=== PATIENT | male | born 1975 | race Caucasian/White ===

== ENCOUNTER 2022-01-05 18:30 | Inpatient (IN) | payer MEDICARE, SELFPAY ==
--- NOTE | ~2022-01-05 | CT_ITS ---
EXAMINATION: CTA chest PE protocol DATE: 01/05/2022 21:12 INDICATION: sara. R leg swelling TECHNIQUE: Computed tomography angiography (CTA) of the chest was performed with 100 mL Omnipaque-350 intravenous contrast timed to evaluate the pulmonary arteries. Coronal maximum intensity projection 3D-reconstructions were created by the technologist. The dose-length product (DLP) was 686.18 mGy-cm. Automated exposure control and iterative reconstruction technique were employed. COMPARISON: None. FINDINGS: Lung parenchyma and airways: Left basilar atelectasis/scar. Mild diffuse groundglass opacities with d ependent distribution. Pleura: Unremarkable. Thoracic inlet, axillae and chest wall: Unremarkable. Thoracic aorta: Mild arch calcification. Mediastinum: Mediastinal lymphadenopathy. Heart and pericardium: Cardiomegaly. Coronary artery calcifications: Moderate. Upper abdomen: No significant finding. Bones: No acute osseous finding. Pulmonary arteries: Study quality: Adequate. No pulmonary emboli detected. IMPRESSION: No CT evidence of acute pulmonary embolus. Mediastinal lymphadenopathy. Cardiomegaly. Pulmonary opaci ties may reflect mild pulmonary edema. Reviewed, dictated and finalized at location K. [employer] ENGINEERING MANAGER IMPRESSION: No CT evidence of acute pulmonary embolus. Mediastinal lymphadenopathy. Cardiom egaly. Pulmonary opacities may reflect mild pulmonary edema.
--- NOTE | ~2022-01-05 | CT_ITS ---
EXAMINATION: CT brain wo con DATE: 01/05/2022 20:26 INDICATION: Syncope/Fall . TECHNIQUE: Computed tomography (CT) of the head was performed without intravenous contrast. The mA wa s adjusted according to patient size. Iterative reconstruction technique was employed. The dose-lengt h product was 908.00 mGy-cm. COMPARISON: None FINDINGS: No acute intracranial hemorrhage or extra-axial fluid collection. No hydrocephalus, mass, or herniation. No acute ischemic infarct. Unremarkable dural venous sinus attenuation. No acute osseous abnormality. The aerated spaces are clear. Old left cerebellar infarct. Focal encephalomalacia in the right posterior frontal lobe. Mild chronic white matter change. Atherosclerotic intracranial calcifications. IMPRESSION: No acute intracranial process. Reviewed, dictated and finalized at location K. [employer]OR AND DELIVERY
[2022-01-05 18:35] VITALS: BP 132/98; PULSE 124; RESP 22; TEMP 36.7; O2SAT 100
--- NOTE | 2022-01-05 18:37 | ECG_ITS ---
Measurements Intervals [place] Rate: 123 P: 59 ND: 151 QRS: 13 QRSD: 106 T: 80 QT: 422 QTc: 604 Interpretive Statements SINUS TACHYCARDIA INCOMPLETE LEFT BUNDLE BRANCH BLOCK LOW QRS VOLTAGE IN LIMB LEADS BORDERLINE ST-T WAVE ABNORMALITY- DIFFUSE LEADS ABNORMAL ECG NO PREVIOUS ECG AVAILABLE FOR COMPARISON Electronically Signed On 01-06-2022 8:06:18 [employer] DU[employer]ER by Cecil Ashton D.O.
[2022-01-05 18:55] LABS: Basophils Absolute Auto 0.1 K/mm3 (0.0-0.1); Basophils Percent Auto 0.5 % (0.2-1.2); Eosinophils Absolute Auto 0.1 K/mm3 (0-0.3); Eosinophils Percent Auto 1.1 % (0-4.4); Hematocrit 44.1 % (42.0-52.0); Hemoglobin 12.9 g/dL (14.0-18.0); Immature Granulocyte Absolute 0.07 K/mm3 (0.00-0.031); Immature Granulocyte Percent A 0.7 % (0-0.5); Lymphocytes Absolute Auto 2.55 K/mm3 (0.9-3.2); Mean Corpuscular HGB Conc 29.3 g/dl (32-36); Mean Corpuscular Hemoglobin 23.3 pg (26-34); Mean Corpuscular Volume 79.6 fl (80-100); Mean Platelet Volume 9.7 fl (7.4-10.4); Monocytes Absolute Auto 1.2 K/mm3 (0.1-0.6); Monocytes Percent Auto 12.2 % (2.6-8.5); Neutrophils Absolute Auto 5.8 K/mm3 (1.3-6.7); Neutrophils Percent Auto 59.5 % (45.5-73.1); Nucleated Red Blood Cells Perc 0.4 % (0.0-0.2); Platelet Count Result 284 k/mm3 (150-375); Red Blood Count 5.54 M/mm3 (4.6-6.20); Red Cell Distribution Width 17.2 % (11.5-14.5); White Blood Count 9.8 K/mm3 (4.5-10.0)
[2022-01-05 19:10] LABS: Alanine Aminotransferase 42 U/L (6-50); Alkaline Phosphatase 159 U/L (38-126); Anion Gap 13 mmol/L (8-16); Aspartate Amino Transferase 49 U/L (17-59); Bilirubin,Total 0.8 mg/dL (0.2-1.3); Blood Urea Nitrogen 30 mg/dL (9-20); Calcium 8.5 mg/dL (8.4-10.2); Carbon Dioxide 25 mmol/L (22-30); Chloride 101 mmol/L (98-107); Estimated CRCL calculation 65 ml/min; Estimated Glomerular Filt Rate 50; Glucose 114 mg/dL (65-110); Potassium 4.7 mmol/L (3.4-5.0); Sodium 139 mmol/L (137-145)
[2022-01-05 19:22] LABS: Hypochromasia 1+ (NORMAL); Platelet Estimate Adequate (Adequate)
[2022-01-05 19:23] LABS: Anisocytosis 2+ (NORMAL); Schistocytes None Seen (NORMAL)
--- NOTE | 2022-01-05 19:58 | PC.NURSE ---
JACK cueva 80 lasix IV push
[2022-01-05] MEDS: FUROSEMIDE INJ 100 MG/10 ML VIAL 80 MG IV PUSH (19:59)
--- NOTE | 2022-01-05 20:03 | ED.GENADULT ---
HPI - General Adult General Chief complaint: Syncope Stated complaint: SOB, SYNCOPE Time Seen by Provider: 01/05/22 18:54 History of Present Illness HPI narrative: this is a 46-year-old male with history of severe CHF and polysubstance use disorder presenting ED with syncope. Per the patient's he has been having syncope more and more frequently. He had an episode today 130 where he was standing in his bedroom, syncopized and woke up on the floor. He believes he hit his head on the dresser. Patient is also complaining of chronic left-sided chest pain that he describes as stabbing, nonradiating, 5/10 in intensity constant. It comes and goes. Patient has had a many times over the last several months. There are no exacerbating or alleviating factors. Is not associated with vomiting or diaphoresis or exertion. Patient is supposed to be taking Lasix but only takes his medications intermittently. Additionally the patient used methamphetamines after the syncope to try to make himself feel better. It did not work. Related Data Allergies Allergy/AdvReac Type Severity Reaction Status Date / Time Penicillins Allergy Unknown Verified 01/05/22 19:52 Review of Systems Review of Systems: CONSTITUTIONAL: Denies night sweats. EYES: No eye pain ENT: Denies rhinorrhea CARDIOVASCULAR: Denies palpitations RESPIRATORY: Denies hemoptysis GASTROINTESTINAL: Denies hematemesis GENITOURINARY: Denies hematuria. SKIN: Denies rash MUSCULOSKELETAL: Denies myalgia. NEUROLOGIC: Denies weakness. PSYCHIATRIC: Denies delusions [facility] Social History Social History (Updated 01/05/22 @ 20:10 by Carlos Alberto MD) Social History: Patient has a history of alcoholism but quit approximately 1 year ago. Uses tobacco daily, uses methamphetamine frequently, denies cocaine use. Used IV drugs but has not used in the last 1 year Exam Narrative: APPEARANCE: 46-year-old male with facial tattoos sitting in bed, looks uncomfortable Head: atraumatic. EYES: EOMI, NOSE: Atraumatic NECK: Trachea midline RESPIRATORY: tachypneic , bibasilar rales CARDIOVASCULAR: tachycardic, patient has peripheral edema, left calf worse than right ABDOMINAL: distended, nontender no guarding or rebound MUSCULOSKELETAl: No obvious deformities NEURO: Alert. Moving 4/4 extremities SKIN:: Warm, dry. Normal color PSYCHIATRIC: Normal affect point of care cardiac ultrasound revealed an ejection fraction of 10-15% with global dilation of the heart. IVC is plethoric. pericardial effusion. Course Vital Signs Vital signs: Vital Signs Temperature 98.0 F 01/05/22 18:35 Pulse Rate 124 H 01/05/22 18:35 Respiratory Rate 22 H 01/05/22 18:35 Blood Pressure 132/98 H 01/05/22 18:35 Pulse Oximetry 100 01/05/22 18:35 Oxygen Delivery Room Air 01/05/22 18:35 Temperature 98.0 F 01/05/22 18:35 Pulse Rate 123 H 01/05/22 21:49 Respiratory Rate 31 H 01/05/22 21:36 Blood Pressure 151/112 H 01/05/22 21:36 Pulse Oximetry 100 01/05/22 21:36 Oxygen Delivery Room Air 01/05/22 18:35 Medical Decision Making MDM Narrative Medical decision making narrative: this is a chronically and healthy 46-year-old male with history of severe heart failure with reduced ejection fraction polysubstance use disorder presenting with syncope and shortness of breath. POC Cardiac ultrasound performed by myself showed an EF of 10-15%. patient is only intermittently consistent with his Lasix. Additionally he does smoke meth frequently which will worsen his HF. Patient is given 80 mg of Lasix. Additionally he has swelling of his left calf greater than right. This is more likely asymmetric peripheral edema from his heart failure but his CT PE has been ordered to evaluate. CT PE did not reveal pulmonary embolism. EKG interpretation: Rhythm [sinus], Rate [], [place] -[normal], [place] -[normal], QRS [narrow], QTC [normal], T waves -[negative for concerning inversions], ST Segme
[2022-01-05 20:20] LABS: INR 1.2; Partial Thromboplastin Time 26.6 SECONDS (22.3-36.8); Prothrombin Time 14.8 Seconds (11.1-14.7)
[2022-01-05 20:28] LABS: NT Pro B Type Natriuretic Pept 12300 pg/mL (5-100)
[2022-01-05 20:48] LABS: D Dimer 0.66 ug/mL (<0.48)
[2022-01-05 20:55] LABS: Troponin I 0.074 ng/mL (0.000-0.034)
[2022-01-05 21:36] VITALS: BP 151/112; PULSE 123; RESP 31; O2SAT 100
[2022-01-05 21:49] VITALS: PULSE 123
[2022-01-05 22:48] VITALS: BP 139/105; PULSE 121; RESP 18; O2SAT 97
[2022-01-05 23:12] VITALS: BP 132/98; PULSE 127
[2022-01-05 23:13] VITALS: BP 143/102
--- NOTE | 2022-01-05 23:14 | PM.IMHP ---
H&P: HPI History of Present Illness Date/Time: 01/05/22 23:14 Chief Complaint: shortness of breath Narrative: This is a 46-year-old male with past medical history significant for drug dependence patient used to be on IV drug user now he is smoking methamphetamine he also smokes cigarettes he has an ejection fraction of 10-15% as per last echocardiogram performed he was supposed to be wearing a life vest however he did not like it and sent it back. He presented today to the emergency room due to shortness of breath upon further questioning patient has PND, orthopnea, shortness of breath which is present at rest, bilateral lower extremity swelling, cough nonproductive of sputum denies chest pain, denies palpitations, denies nausea, vomiting, abdominal pain, diarrhea, patient has been having syncopal episodes he had a syncopal episode and caught himself heating the dresser. preliminary workup was significant for brain natriuretic peptide of 12,300, troponins x3 0.074/0.070/0.074. patient has been admitted for further evaluation management and treatment. Chest x-ray was reported as; IMPRESSION:? No acute intracranial process. CTA of the chest was reported as; IMPRESSION: No CT evidence of acute pulmonary embolus. Mediastinal lymphadenopathy. Cardiomegaly. Pulmonary opacities may reflect mild pulmonary edema. Review of Systems Review of Systems: RECURRENT SYNCOPAL EPISODE, shortness of breath, persistent cough, orthopnea, PND, bilateral lower extremity edema. Constitutional: Constitutional: Denies chills, Denies fever(s), Denies malaise, Denies poor appetite and Denies weakness Eyes: Eyes: Denies change in vision ENT: Denies dysphagia, Denies vertigo, Denies dizziness and Denies odynophagia Cardiovascular: Cardiovascular: Reports chest pain, Reports syncope, Reports leg edema, Reports lightheadedness, Reports dyspnea, Reports dyspnea on exertion, Reports orthopnea and Reports paroxysmal nocturnal dyspnea Respiratory: Respiratory: Reports cough Gastrointestinal: Gastrointestinal: Denies abdominal pain, Denies dyspepsia, Denies heartburn, Denies diarrhea, Denies nausea and Denies vomiting Genitourinary: Genitourinary: Denies dysuria Musculoskeletal: Musculoskeletal: Denies myalgias Integumentary/Breasts: Skin/Breast: Denies rash Neurologic: Denies vertigo, Denies dizziness, Denies focal weakness and Denies Sensory deficit (Neuro) Psychiatric: Psychiatric: Reports no additional psychiatric complaints and Reports as per HPI Endocrine: Endocrine: Denies cold intolerance, Denies flushing, Denies heat intolerance, Denies polyphagia, Denies polydipsia and Denies palpitations Hematologic/Lymphatic: Hematologic/Lymphatic: Reports no additional hematologic/lymphatic complaints and Reports as per HPI Allergic/Immunologic: Allergic/Immunologic: Reports no additional allergic/immunologic complaints and Reports as per HPI PMFSH Family History Family History (Updated 01/06/22 @ 01:17 by Alysha Meléndez RN) Father Heart disease Hypertension Cancer Mother Unknown family medical history Social History Social History (Updated 01/05/22 @ 20:10 by Carlos Alberto MD) Social History: Patient has a history of alcoholism but quit approximately 1 year ago. Uses tobacco daily, uses methamphetamine frequently, denies cocaine use. Used IV drugs but has not used in the last 1 year Smoking packs per day: 0.5 Smoking cigarettes per day: 10.0 Smoking status: Current every day smoker Alcohol intake: never Substance use type: marijuana and methamphetamine Has the Lack of Transportation Kept You From Medical Appointments or From Getting Medications?: Yes Within the Past 12 Months, Were You Worried Whether Your Food Would Run Out Before You Got Money to Buy More?: Often True What is Your Housing Situation Today?: I Have Housing Are You Worried That in the Next 2 Months, You May Not Have Your Own Housing to Live In?: No Do Yo
[2022-01-06] VITALS (20 sets, daily range): BP systolic 98–125; BP diastolic 66–104; PULSE 70–137; RESP 17–22; TEMP 36.3–36.7; O2SAT 97–100
--- NOTE | 2022-01-06 | ECHO_ITS ---
Patient Info Name: Enrique Nichols Age: 46 years : 1975 Gender: Male Ht: 69 in Wt: 231 lbs BSA: 2.30 m2 HR: 90 bpm BP: 122 / 95 mmHg Heart Rhythm: Sinus Rhythm Exam Date: 01/06/2022 1:02 PM Exam Location: [facility] Patient Status: Inpatient Admit Date: 01/05/2022 Staff Ordering Physician: Otis Mcdowell MD Bit Bender: Anjel Enriquez, JAMEEL, RT Attending Provider: Devin Bearden MD Referring Physician: July BOWEN; Exam Type: CA echo dop color flow w con Study Info Indications I50.9 - Heart failure, unspecified Complete two-dimensional, color flow and Doppler transthoracic echocardiogram is performed with contrast to opacify the left ventricle and to improve the deliniation of the left ventricle endocardial borders. Summary 1. Left ventricular chamber dimension is severely enlarged. 2. Left ventricular systolic function is severely reduced, estimated at <15%. 3. Right ventricular systolic function is reduced. 4. There is mild tricuspid valve regurgitation. 5. Dilated inferior vena cava with <50% collapse upon inspiration consistent with elevated right atrial pressure. Left Ventricle Left ventricular chamber dimension is severely enlarged. Left ventricular systolic function is severely reduced, estimated at <15%. There is mildly increased left ventricular wall thickness. The left ventricular diastolic function is indeterminate. Right Ventricle Right ventricular chamber dimension is normal. Right ventricular systolic function is reduced. Left Atria Left atrial chamber dimension is normal. Right Atria Right atrial chamber dimension is normal. Atrial Septum Intact interatrial septum visualized by color flow imaging. Aortic Valve The aortic valve is probable trileaflet. There is no aortic valve stenosis. There is no aortic valve regurgitation. Pulmonic Valve The pulmonic valve is not well visualized. Mitral Valve The mitral valve has normal leaflets. There is no mitral valve stenosis. There is trace mitral valve regurgitation. Tricuspid Valve The tricuspid valve leaflets are normal. There is no significant tricuspid valve stenosis. There is mild tricuspid valve regurgitation. Pericardium/Pleural There is no pericardial effusion. Inferior Vena Cava Dilated inferior vena cava with <50% collapse upon inspiration consistent with elevated right atrial pressure. Aorta The aortic root size at the sinus of Valsalva is normal. Left Ventricular Outflow Tract Name Value Normal LVOT 2D LVOT Diameter 2.12 cm LVOT Doppler LVOT Peak Gradient 1 mmHg LVOT Mean Gradient 1 mmHg LVOT VTI 7.27 cm LVOT VTI/AV VTI Ratio 0.72 LVOT Stroke Volume 25.74 ml LVOT CO 2.24 l/min LVOT CI 0.97 L/min/m2 Mitral Valve Name Value Normal
[2022-01-06 00:05] LABS: SARS-CoV-2 RNA PCR Negative
--- NOTE | 2022-01-06 00:39 | ADMGEN ---
This patient, Enrique Nichols, was admitted to IMU Room 206-01 at 0039. Patient/family oriented to hospital policies and general routines including ID bracelet, bed and alarms, visiting hours, pain management, procedures, bathroom and other care routines, personal items, smoking policy, room service/diet, and visiting hours. Information on how to activate the Rapid Response Team has been discussed. Patient/Family are encouraged to report perceived risks to care and to ask questions if they do not understand what they are told or what they should do.
--- NOTE | 2022-01-06 01:10 | PC.NURSE ---
GOING OVER PATIENTS ADMIT QUESTIONS. PATIENT INSTRUCTED ME THAT HE IS SUPPOSED TO TAKE A BUNCH OF PSYCH MEDS AND REFUSED TO TELL ME WHAT THEY ARE AND THEY ARE NOT ON EXTERNAL MEDICATION LIST. HE STATED THAT HE WOULD NOT TAKE THEM ANYWAY. PATIENT STATED THAT HE IS SUPPOSED TO WEAR A LIFEVEST AND REFUSED, THAT HE SENT IT BACK TO THE COMPANY. PATIENT WAS INSTRUCTED TO CALL FOR ASSIST AND NOT TO GET UP WITHOUT ASSISTANCE BECAUSE OF MULTIPLE SYNCOPAL EPISODE. PATIENT REFUSED AND STATED THAT HE KNOWS HOW TO TURN BED ALARM OFF. PATIENT WAS ALSO INSTRUCTED THAT HE WOULD BE NPO FOR POSSIBLE TEST. HE SAID WE CAN SHUVE THAT NPO CRAP UP OUR ASS.
[2022-01-06 02:47] LABS: Troponin I 0.074 ng/mL (0.000-0.034)
[2022-01-06] MEDS: ENOXAPARIN 120 MG/0.8 ML SYRINGE 105 MG SUB-Q (05:43)
[2022-01-06] MEDS: lisinopriL 5 MG TABLET PO (09:23)
[2022-01-06] MEDS: MAGNESIUM OXIDE 400 MG TABLET PO (09:23)
[2022-01-06] MEDS: carvediloL 6.25 MG TABLET PO (09:23)
[2022-01-06] MEDS: FUROSEMIDE INJ 40 MG/4 ML VIAL IV PUSH ×2 (09:24→17:22)
--- NOTE | 2022-01-06 10:17 | PM.CNCAR ---
Assessment and Plan Assessment and plan (1) Congestive heart failure with left ventricular systolic dysfunction (LVSD): Code(s): I50.20 - Unspecified systolic (congestive) heart failure Status: Acute Assessment and Plan: Will resume standard CHF regimen. Will start at carvedilol 12.5 mg p.o. b.i.d. as well as lisinopril 5 mg daily. Diurese with 40 mg of IV furosemide q.12. 2D echocardiogram with Doppler be ordered and reviewed. Intake and output, daily weights, low-salt diet. Will discontinue full dose enoxaparin. SubQ enoxaparin 40 mg daily for DVT prophylaxis is recommended. (2) Syncope: Code(s): R55 - Syncope and collapse Status: Acute Assessment and Plan: Possibly arrhythmogenic details are not well known or described. Will keep on telemetry. (3) Polysubstance use disorder: Code(s): F19.90 - Other psychoactive substance use, unspecified, uncomplicated Status: Acute Assessment and Plan: Substance abuse counseling is performed. Continue to avoid alcohol. He has to stop methamphetamine use (4) Elevated troponin: Code(s): R77.8 - Other specified abnormalities of plasma proteins Status: Acute Assessment and Plan: These are not related to ACS History of Present Illness History of Present Illness Consult date/time: 01/06/22 10:17 Requesting physician: Betty Mcrae MD Consult reason: congestive heart failure Reason For Visit: HFrEF Narrative: Date of service 01/06/2022 Reason consultation: CHF, syncope Requesting provider: Dr. Mcrae History: Patient is a 46-year-old male has a history of significant substance abuse who still uses methamphetamine. Also has a history of alcoholism and a poor ejection fraction with an EF 10-15%. Was wearing a LifeVest but did not like it and he has sent it back and no longer is using it. He [place] workup [place] of [place]. Since being back in this area he has been seen at [facility]. He is somnolent throughout part of the interview process and falls asleep throughout the interview. He currently denies any chest pain. Came to the hospital with worsening shortness of breath. He has paroxysmal nocturnal dyspnea, orthopnea and shortness breath even at rest. He has also been having worsening lower extremity swelling and a cough. Denies any chest pain, palpitations. He also thinks that he may be passing out but he is uncertain and cannot further describe his episodes. Review of Systems Review of Systems: All systems reviewed & are unremarkable except as noted in HPI and below Constitutional: Constitutional: Denies body ache(s) Eyes: Eyes: Denies blurry vision ENT: Reports Normal hearing present Cardiovascular: Cardiovascular: Denies chest pain and Reports leg edema Respiratory: Respiratory: Reports cough and Reports dyspnea Gastrointestinal: Gastrointestinal: Denies abdominal pain Genitourinary: Genitourinary: Denies hematuria Musculoskeletal: Musculoskeletal: Denies back pain Integumentary/Breasts: Skin/Breast: Denies breast pain Neurologic: Denies Abnormal speech present Psychiatric: Psychiatric: Denies anxiety Endocrine: Endocrine: Denies excessive sweating Hematologic/Lymphatic: Hematologic/Lymphatic: Denies easy bleeding Allergic/Immunologic: Allergic/Immunologic: Denies GI upset with certain foods PMFSH Past Medical History Medical History (Updated 01/06/22 @ 10:22 by Otis Mcdowell MD) Bipolar 1 disorder Congestive heart failure with left ventricular systolic dysfunction (LVSD) Polysubstance use disorder Family History Family History (Updated 01/06/22 @ 01:17 by Alysha Meléndez RN) Father Heart disease Hypertension Cancer Mother Unknown family medical history Social History Social History (Updated 01/05/22 @ 20:10 by Carlos Alberto MD) Social History: Patient has a history of alcoholism but quit approximately 1 year ago. Uses tobac
--- NOTE | 2022-01-06 11:19 | PM.IMPN ---
Progress Note: A&P Assessment and Plan (1) Congestive heart failure with left ventricular systolic dysfunction (LVSD): Code(s): I50.20 - Unspecified systolic (congestive) heart failure Status: Acute Assessment and Plan: patient has ejection fraction of 15%. Previously he has declined LifeVest. I counseled the patient again extensively on wearing a LifeVest. Cardiology has been consulted. Patient to continue Lasix 40 mg IV b.i.d.. Monitor intake and output. Continue goal-directed medical therapy with lisinopril and carvedilol. Subjective Date/time seen: 01/06/22 11:19 no chest pain, shortness are breath Review of Systems Review of Systems: All systems reviewed & are unremarkable except as noted in HPI and below Constitutional: Constitutional: Denies body ache(s) Eyes: Eyes: Denies blurry vision ENT: Reports Normal hearing present Cardiovascular: Cardiovascular: Denies chest pain and Reports leg edema Respiratory: Respiratory: Reports cough and Reports dyspnea Gastrointestinal: Gastrointestinal: Denies abdominal pain Genitourinary: Genitourinary: Denies hematuria Musculoskeletal: Musculoskeletal: Denies back pain Integumentary/Breasts: Skin/Breast: Denies breast pain Neurologic: Denies Abnormal speech present Psychiatric: Psychiatric: Denies anxiety Endocrine: Endocrine: Denies excessive sweating Hematologic/Lymphatic: Hematologic/Lymphatic: Denies easy bleeding Allergic/Immunologic: Allergic/Immunologic: Denies GI upset with certain foods Exam Narrative: Drowsy but arousable. Appears older than stated age Const: General: comfortable and no acute distress HENMT: Face/Nose/Sinus: Normal nares present Mouth: Yes moist mucous membranes Eyes: Sclera: sclerae normal Neck: Neck: supple Carotids: no bruits Chest: Other: No chest wall pain to palpation Resp: Auscultation: clear to auscultation bilaterally and diminished lung sounds Cardio: Rate: tachycardic Rhythm: regular rhythm GI: GI Palp: Yes Soft to palpation Auscultation: normal bowel sounds Skin: General skin exam: normal color Other: Tattoos noted Neuro: Speech: normal speech Motor exam (neuro): 5/5 motor strength present throughout Extrem: General: edema Psych: Mental Status: mental status grossly normal Other: Somnolent Objective Data Vital Signs Vital Signs: Vital Signs - 24 hr 01/05/22 18:35 01/05/22 21:49 01/05/22 21:36 Temperature 98.0 F Pulse Rate 124 H 123 H 123 H Respiratory Rate 22 H 31 H Blood Pressure 132/98 H 151/112 H Pulse Oximetry 100 100 Oxygen Delivery Room Air Fraction of Inspired Oxygen 01/05/22 22:48 01/05/22 23:12 01/05/22 23:13 Temperature Pulse Rate 121 H 127 H Respiratory Rate 18 Blood Pressure 139/105 H 132/98 H 143/102 H Pulse Oximetry 97 Oxygen Delivery Fraction of Inspired Oxygen 01/06/22 00:43 01/06/22 01:16 01/06/22 02:00 Temperature 98.0 F Pulse Rate 124 H 137 H 109 H Respiratory Rate 22 H Blood Pressure 125/104 H Pulse Oximetry 99 Oxygen Delivery Fraction of Inspired Oxygen 01/06/22 01:45 01/06/22 01:45 01/06/22 04:00 Temperature Pulse Rate 114 H 114 H 112 H Respiratory Rate 21 H 21 H Blood Pressure Pulse Oximetry 99 99 Oxygen Delivery BiPAP BiPAP Fraction of Inspired Oxygen 40 01/06/22 04:00 01/06/22 04:00 01/06/22 05:48 Temperature 98.0 F Pulse Rate 109 H 116 H 109 H Respiratory Rate 21 H 20 Blood Pressure 125/84 Pulse Oximetry 99 99 Oxygen Delivery BiPAP Fraction of Inspired Oxygen 40 01/06/22 08:00 01/06/22 09:23 01/06/22 08:00 Temperature 97.7 F Pulse Rate 112 H 110 H 115 H Respiratory Rate 18 Blood Pressure 122/95 H Pulse Oximetry 97 Oxygen Delivery Fraction of Inspired Oxygen 01/06/22 10:00 01/06/22 00:47 Temperature Pulse Rate 110 H 124 H Respiratory Rate 22 H Blood Pressure 125/104 H Pulse Oximetry 99 Oxygen Del
[2022-01-06] MEDS: PERFLUTREN LIPID MICROSPHERES 1.5 ML VIAL DILUTED TO 10 ML TOTAL VOLUME IV PUSH (13:10)
--- NOTE | 2022-01-06 13:11 | IVDEFINITY ---
Prior to administration of IV Definity the patient was educated on the risks and benefits of the imaging enhancing agent including potential adverse side effects. The patient verbalized understanding. Allergies were verified. No exclusion criteria were identified and at least one of the following inclusion criteria were met: 1) physician request, 2) patient technically difficult to image (per the [place] [employer] guidelines of two or more segments not discernable within the apical view), or 3) questionable left ventricular function. ?
[2022-01-06] MEDS: carvediloL 12.5 MG TABLET PO (20:23)
--- NOTE | 2022-01-06 23:33 | PC.NURSE ---
PATIENT IS BEING VERY AGGRESSIVE AND DEMANDING THAT HE CAN TAKE A SHOWER. PATIENT STATED THAT HE WILL PULL OUT HIS IV AND TAKE A SHOWER WHETHER WE LIKE IT OR NOT.
[2022-01-07] VITALS (17 sets, daily range): BP systolic 75–116; BP diastolic 52–93; PULSE 74–105; RESP 17–24; TEMP 36.2–37.2; O2SAT 92–100
[2022-01-07] MEDS: ENOXAPARIN 40 MG/0.4 ML SYRINGE SUB-Q (08:52)
[2022-01-07] MEDS: FUROSEMIDE INJ 40 MG/4 ML VIAL IV PUSH (08:52)
[2022-01-07] MEDS: MAGNESIUM OXIDE 400 MG TABLET PO (08:52)
[2022-01-07] MEDS: lisinopriL 5 MG TABLET PO (08:52)
[2022-01-07] MEDS: carvediloL 12.5 MG TABLET PO ×2 (09:32→20:39)
--- NOTE | 2022-01-07 11:22 | PM.PNCARD ---
Progress Note: A&P Assessment and Plan (1) Congestive heart failure with left ventricular systolic dysfunction (LVSD): Code(s): I50.20 - Unspecified systolic (congestive) heart failure Status: Acute Assessment and Plan: Will resume standard CHF regimen. Continue carvedilol and lisinopril. Reduce his diuretics of furosemide 40 mg IV daily and transition oral furosemide tomorrow., low-salt diet. (2) Syncope: Code(s): R55 - Syncope and collapse Status: Acute Assessment and Plan: Possibly arrhythmogenic details are not well known or described. Will keep on telemetry. (3) Polysubstance use disorder: Code(s): F19.90 - Other psychoactive substance use, unspecified, uncomplicated Status: Acute Assessment and Plan: Substance abuse counseling is performed. Continue to avoid alcohol. He has to stop methamphetamine use (4) Elevated troponin: Code(s): R77.8 - Other specified abnormalities of plasma proteins Status: Acute Assessment and Plan: These are not related to ACS Subjective Date/time seen: 01/07/22 11:22 Interval history: 46-year-old admitted for CHF exacerbation. Date of service 09/06/2021: Much more awake alert today. He has no chest pains. Shortness breath is better. Review of Systems Review of Systems: All systems reviewed & are unremarkable except as noted in HPI and below Constitutional: Constitutional: Denies body ache(s) and Denies excessive sweating Eyes: Eyes: Denies blurry vision ENT: Reports Normal hearing present Cardiovascular: Cardiovascular: Denies chest pain, Reports leg edema and Reports dyspnea Respiratory: Respiratory: Reports cough and Reports dyspnea Gastrointestinal: Gastrointestinal: Denies abdominal pain Genitourinary: Genitourinary: Denies hematuria Musculoskeletal: Musculoskeletal: Denies back pain Integumentary/Breasts: Skin/Breast: Denies breast pain Neurologic: Reports Normal hearing present and Denies Abnormal speech present Psychiatric: Psychiatric: Denies anxiety Endocrine: Endocrine: Denies excessive sweating Hematologic/Lymphatic: Hematologic/Lymphatic: Denies easy bleeding Allergic/Immunologic: Allergic/Immunologic: Denies GI upset with certain foods Exam Narrative: Drowsy but arousable. Appears older than stated age Const: General: comfortable and no acute distress HENMT: Face/Nose/Sinus: Normal nares present Mouth: Yes moist mucous membranes Eyes: Sclera: sclerae normal Neck: Neck: supple Carotids: no bruits Chest: Other: No chest wall pain to palpation Resp: Auscultation: clear to auscultation bilaterally and diminished lung sounds Cardio: Rate: tachycardic Rhythm: regular rhythm GI: Auscultation: normal bowel sounds Skin: General skin exam: normal color Other: Tattoos noted Neuro: Cranial nerves: Yes Normal hearing present Speech: normal speech and No Abnormal speech present Motor exam (neuro): 5/5 motor strength present throughout Extrem: General: edema Psych: Mental Status: mental status grossly normal Objective Data Vital Signs Vital Signs: Vital Signs - 24 hr 01/06/22 12:00 01/06/22 12:00 01/06/22 14:00 Temperature 36.3 C L Pulse Rate 89 98 85 Respiratory Rate 20 Blood Pressure 98/66 L Pulse Oximetry 99 Oxygen Delivery Fraction of Inspired Oxygen 01/06/22 15:51 01/06/22 16:00 01/06/22 12:00 Temperature 36.5 C Pulse Rate 76 86 98 Respiratory Rate 21 H 17 20 Blood Pressure 106/80 Pulse Oximetry 100 100 100 Oxygen Delivery BiPAP BiPAP Fraction of Inspired Oxygen 40 01/06/22 16:00 01/06/22 17:57 01/06/22 19:16 Temperature Pulse Rate 95 88 80 Respiratory Rate 20 Blood Pressure Pulse Oximetry 100 Oxygen Delivery BiPAP Fraction of Inspired Oxygen 01/06/22 20:23 01/06/22 20:00 01/06/22 20:00 Temperature Pulse Rate 88 88 88 Respiratory Rate 20 Blood Pressure Pulse Oxime
--- NOTE | 2022-01-07 16:20 | PM.IMPN ---
Progress Note: A&P Assessment and Plan (1) Congestive heart failure with left ventricular systolic dysfunction (LVSD): Code(s): I50.20 - Unspecified systolic (congestive) heart failure Status: Acute Assessment and Plan: Patient has ejection fraction of 15%. Previously he has declined LifeVest. Pt to continue lasix IV once daily NOAM inhibitors and Coreg. Continue with gentle diuresis watching BP monitor BMp daily plan dc in 1-2 days time Pt strongly advised to quit meth Plan Bipolar disorder and polysubstance abuse long history pt states he wants to be clean Subjective Date/time seen: 01/07/22 16:20 46-year-old male with past medical history significant for drug dependence patient used to be on IV drug user now he is smoking methamphetamine he also smokes cigarettes he has an ejection fraction of 10-15% as per last echocardiogram performed he was supposed to be wearing a life vest however he did not like it and sent it back. Pt has history of bipolar and polysubstance abuse. Pt seen by cardiology pt medications have been adjusted unfortunately pt has been running low BP today due to medications we will continue to observe. Exam Const: General: cooperative, comfortable, no acute distress, well developed, alert, awake, acute distress mild and average body habitus Nutritional Appearance: average body habitus Orientation/consciousness: patient oriented x3 Resp: Effort & Inspection: normal respiratory effort and able to speak in complete sentences Auscultation: clear to auscultation bilaterally and diminished lung sounds Cardio: Jugular venous distension: no JVD Rate: regular rate and tachycardic Rhythm: regular rhythm Heart sounds: S1 normal heart sound present and S2 normal heart sound present GI: Inspection: normal to inspection Auscultation: normal bowel sounds Extrem: General: edema bilateral ( 2+) Psych: Mental Status: mental status grossly normal Other: Somnolent Objective Data Vital Signs Vital Signs: Vital Signs - 24 hr 01/06/22 17:57 01/06/22 19:16 01/06/22 20:23 Temperature Pulse Rate 88 80 88 Respiratory Rate 20 Blood Pressure Pulse Oximetry 100 Oxygen Delivery BiPAP Fraction of Inspired Oxygen 01/06/22 20:00 01/06/22 20:00 01/06/22 20:00 Temperature 36.4 C Pulse Rate 88 88 80 Respiratory Rate 20 20 Blood Pressure 106/85 Pulse Oximetry 100 100 Oxygen Delivery BiPAP Fraction of Inspired Oxygen 40 11/08/22 22:00 01/07/22 00:00 01/06/22 23:15 Temperature 37.1 C Pulse Rate 82 85 70 Respiratory Rate 22 H 20 Blood Pressure 93/54 L Pulse Oximetry 94 97 Oxygen Delivery BiPAP Fraction of Inspired Oxygen 01/07/22 02:00 01/07/22 02:26 01/07/22 02:34 Temperature Pulse Rate 90 92 Respiratory Rate 17 Blood Pressure Pulse Oximetry 100 96 Oxygen Delivery BiPAP Fraction of Inspired Oxygen 01/07/22 04:00 01/07/22 04:00 01/07/22 05:43 Temperature 37.2 C Pulse Rate 84 87 Respiratory Rate 17 20 Blood Pressure 116/93 H Pulse Oximetry 100 94 Oxygen Delivery BiPAP Fraction of Inspired Oxygen 01/07/22 06:00 01/07/22 08:00 01/07/22 08:00 Temperature 36.2 C L Pulse Rate 85 86 Respiratory Rate 24 H Blood Pressure 101/58 L Pulse Oximetry 99 Oxygen Delivery Room Air Fraction of Inspired Oxygen 01/07/22 08:00 01/07/22 10:00 01/07/22 12:00 Temperature 36.7 C Pulse Rate 96 86 84 Respiratory Rate 20 Blood Pressure 75/52 L Pulse Oximetry 92 Oxygen Delivery Fraction of Inspired Oxygen 01/07/22 12:00 01/07/22 14:00 01/07/22 16:00 Temperature 36.7 C Pulse Rate 85 86 86 Respiratory Rate 20 Blood Pressure 85/60 L Pulse Oximetry 98 Oxygen Delivery Fraction of Inspired Oxygen Intake/Output Intake/Output: Intake & Output 01/04/22 01/05/22 01/06/22 01/07/22 23:59 23:59 23:59 23:59 Intake Total 1060 1080 Output Total 2300 2800 Jamilah
[2022-01-07] MEDS: ACETAMINOPHEN 325 MG TABLET 650 MG PO (18:11)
--- NOTE | 2022-01-07 23:36 | PC.NURSE ---
PATIENT WAS CHANGED TO CPAP INSTEAD OF BIPAP. PATIENT IS CALLING OUT BECAUSE HE DOESN'T LIKE THE MASK, HE REFUSES TO WEAR OXYGEN. TRIED THE NASAL MASK AND HE IS REFUSING THAT. HE STATED THAT HE WILL ONLY WEAR THE REGULAR MASK IF HE GETS SOMETHING FOR HIS ANXIETY.
--- NOTE | 2022-01-08 00:33 | PC.NURSE ---
patient removes telemetry to take shower. did not let us wrap up iv tonight.
--- NOTE | 2022-01-08 00:46 | PC.NURSE ---
PATIENT CALLED OUT FOR STAFF TO COME IN AND EXPLAIN THE DISCHARGE PREFERENCE THAT WAS WRITTEN ON PATIENTS BOARD. PATIENT WAS IRATE AND SCREAMING BECAUSE HE WAS SAYING THAT WE WERE KICKING HIM OUT BECAUSE IT SAID DISCHARGE TO HOME ON [place] [address]. I HAD TO CALM PATIENT DOWN AND TRY TO EXPLAIN TO HIM THAT THAT WAS JUST WHERE HE WILL BE GOING WHEN HE IS READY TO LEAVE.
[2022-01-08 02:00] VITALS: PULSE 103
[2022-01-08] MEDS: OLANZapine 2.5 MG TABLET PO (02:55)
--- NOTE | 2022-01-08 03:43 | PC.NURSE ---
PATIENT WAS SCREAMING AND YELLING BECAUSE HE DIDN'T LIKE THE CPAP. HE REFUSED TO WEAR THE NASAL CANULA, HE STATED THAT IT IRRITATED HIM. CUT THE PRONGS OFF AND HE STILL THREW IT. TRIED CHANGING SETTING ON CPAP. TRY TO BLEED IN O2, HE WASN'T HAPPY WITH ANYTHING THAT WE DID. HE WAS SCREAMING AT ME THAT I DON'T UNDERSTAND WHAT'S WRONG WITH HIM. HE KEPT SAYING THAT ONLY 15% OF HIS HEART IS WORKING AND THAT I WASN'T MAKING IT BETTER. HE KEPT ASKING ME WHAT I WAS GOING TO DO ABOUT HIS HEART PROBLEM. EVERY TIME I MENTIONED HOME IN THE CONVERSATION HE WOULD FREAK OUT, BECOME MORE IRATE. HE WOULDN'T LISTEN TO ANYTHING I HAD TO SAY AND KEPT HAVING ME EXPLAIN THE SAME THING OVER AND OVER, HE WAS GETTING MAD AT ME BECAUSE HE COULDN'T UNDERSTAND. SO I LEFT THE ROOM AND GOT THE CONTROL ANALYST TALK TO HIM. HE WANTED HIS PSYCH MEDS. THEY WERE NOT IN THE EXTERNAL HISTORY, HE COULDN'T REMEMBER WHAT ALL HE TOOK, THE DOSE, HOW OFTEN, NOTHING. SO TALKED TO DR ESPINOZA TO GIVE HIM A MEDICATION TO HELP RELAX HIM. WILL CONTINUE TO MONITOR.
[2022-01-08 04:00] VITALS: BP 110/82; PULSE 86; PULSE 91; RESP 18; TEMP 36.1; O2SAT 100
--- NOTE | 2022-01-08 04:03 | PC.NURSE ---
PATIENT IS EXTREMELY RESTLESS, LAYING DOWN, SITTING UP, ROLLING AROUND IN BED, STANDING AND PACING, VERY ANXIOUS. DR ESPINOZA IS AWARE, MEDS ORDERED.
[2022-01-08] MEDS: LORazepam INJ (*CRX) 2 MG/ML VIAL 0.5 MG IV PUSH (04:09)
--- NOTE | 2022-01-08 04:45 | PCRCNOTE ---
I applied autoCPAP onto patient multiple times throughoutthe night. Patient c/o he is uncomfortable using CPAP machine because it feels different than the bipap machine he was on earlier. Patient education on the difference in between the two therapies. Patient also tried multiple suggestion to help make using the CPAP easier. Patient refused and placed on NC.
[2022-01-08 06:00] VITALS: PULSE 104
--- NOTE | 2022-01-08 06:45 | PC.NURSE ---
PATIENT IS SLEEPY, WONT LAY DOWN, SITS ON SIDE OF BED AND ROCKS BACK AND FORTH. PATIENT TOLD MULTIPLE TIME TO LAY DOWN BEFORE HE FALLS OUT OF BED. PATIENT WILL LAY DOWN FOR A COUPLE MIN. AND GET BACK UP. PATIENT IS NOT IRATE HE WAS EARLIER, JUST NON-COMPLIANT.
[2022-01-08 07:14] LABS: Anion Gap 10 mmol/L (8-16); Blood Urea Nitrogen 43 mg/dL (9-20); Calcium 8.3 mg/dL (8.4-10.2); Carbon Dioxide 25 mmol/L (22-30); Chloride 100 mmol/L (98-107); Estimated CRCL calculation 65 ml/min; Estimated Glomerular Filt Rate 50; Glucose 104 mg/dL (65-110); Magnesium 2.2 mg/dL (1.6-2.3); Potassium 4.3 mmol/L (3.4-5.0); Sodium 135 mmol/L (137-145)
[2022-01-08 08:00] VITALS: BP 126/85; PULSE 106; PULSE 94; RESP 20; TEMP 36.4; O2SAT 100
[2022-01-08] MEDS: ENOXAPARIN 40 MG/0.4 ML SYRINGE SUB-Q (08:24)
[2022-01-08] MEDS: carvediloL 12.5 MG TABLET PO (08:24)
[2022-01-08] MEDS: MAGNESIUM OXIDE 400 MG TABLET PO (08:24)
[2022-01-08] MEDS: lisinopriL 5 MG TABLET PO (08:25)
[2022-01-08] MEDS: FUROSEMIDE INJ 40 MG/4 ML VIAL IV PUSH (08:25)
--- NOTE | 2022-01-08 09:24 | PM.PNCARD ---
Progress Note: A&P Assessment and Plan (1) Congestive heart failure with left ventricular systolic dysfunction (LVSD): Code(s): I50.20 - Unspecified systolic (congestive) heart failure Status: Acute Assessment and Plan: Continue carvedilol and lisinopril. Continue furosemide 40 mg IV daily and possibly transition oral furosemide tomorrow., low-salt diet. (2) Syncope: Code(s): R55 - Syncope and collapse Status: Acute Assessment and Plan: Possibly arrhythmogenic details are not well known or described. Will keep on telemetry. (3) Polysubstance use disorder: Code(s): F19.90 - Other psychoactive substance use, unspecified, uncomplicated Status: Acute Assessment and Plan: Substance abuse counseling is performed. Continue to avoid alcohol. He has to stop methamphetamine use (4) Elevated troponin: Code(s): R77.8 - Other specified abnormalities of plasma proteins Status: Acute Assessment and Plan: These are not related to ACS Subjective Date/time seen: 01/08/22 09:24 Interval history: 46-year-old admitted for CHF exacerbation. Date of service 01/08/2022: A bit more short of breath today than yesterday. No chest pain. Review of Systems Review of Systems: All systems reviewed & are unremarkable except as noted in HPI and below Constitutional: Constitutional: Denies body ache(s) and Denies excessive sweating Eyes: Eyes: Denies blurry vision ENT: Reports Normal hearing present Cardiovascular: Cardiovascular: Denies chest pain, Reports leg edema and Reports dyspnea Respiratory: Respiratory: Reports cough and Reports dyspnea Gastrointestinal: Gastrointestinal: Denies abdominal pain Genitourinary: Genitourinary: Denies hematuria Musculoskeletal: Musculoskeletal: Denies back pain Integumentary/Breasts: Skin/Breast: Denies breast pain Neurologic: Reports Normal hearing present and Denies Abnormal speech present Psychiatric: Psychiatric: Denies anxiety Endocrine: Endocrine: Denies excessive sweating Hematologic/Lymphatic: Hematologic/Lymphatic: Denies easy bleeding Allergic/Immunologic: Allergic/Immunologic: Denies GI upset with certain foods Exam Narrative: Drowsy but arousable. Appears older than stated age Const: General: comfortable and no acute distress HENMT: Face/Nose/Sinus: Normal nares present Mouth: Yes moist mucous membranes Eyes: Sclera: sclerae normal Neck: Neck: supple Carotids: no bruits Chest: Other: No chest wall pain to palpation Resp: Auscultation: clear to auscultation bilaterally and diminished lung sounds Cardio: Rate: tachycardic Rhythm: regular rhythm GI: Auscultation: normal bowel sounds Skin: General skin exam: normal color Other: Tattoos noted Neuro: Cranial nerves: Yes Normal hearing present Speech: normal speech and No Abnormal speech present Motor exam (neuro): 5/5 motor strength present throughout Extrem: General: edema Psych: Mental Status: mental status grossly normal Other: Somnolent Objective Data Vital Signs Vital Signs: Vital Signs - 24 hr 01/07/22 10:00 01/07/22 12:00 01/07/22 12:00 Temperature 36.7 C Pulse Rate 86 84 85 Respiratory Rate 20 Blood Pressure 75/52 L Pulse Oximetry 92 Oxygen Delivery Fraction of Inspired Oxygen 01/07/22 14:00 01/07/22 16:00 01/07/22 16:00 Temperature 36.7 C Pulse Rate 86 86 89 Respiratory Rate 20 Blood Pressure 85/60 L Pulse Oximetry 98 Oxygen Delivery Fraction of Inspired Oxygen 01/07/22 18:00 01/07/22 20:00 01/07/22 20:39 Temperature 36.3 C L Pulse Rate 95 89 74 Respiratory Rate 22 H Blood Pressure 100/62 Pulse Oximetry 96 Oxygen Delivery Fraction of Inspired Oxygen 01/07/22 20:00 01/07/22 20:00 01/07/22 23:15 Temperature Pulse Rate 74 93 Respiratory Rate 22 H Blood Pressure Pulse Oximetry 96 Oxygen Delivery Room Air Autopap Fraction
--- NOTE | 2022-01-08 11:06 | PC.NURSE ---
This patient, Enrique Nichols, was received from IMU on 01/08/22 at 1010. Patient/family oriented to unit policies and routines
--- NOTE | 2022-01-08 11:06 | PC.NURSE ---
Pt. setting off bed alarm observed pt turing off bed alarm, pt yelling at staff not to turn back state i will just turn in back off when you leave . Pt is aware how to reset alarm on wall also.
--- NOTE | 2022-01-08 11:22 | PC.NURSE ---
Pt, took off telemetry alarm and refusing staff to place alarm back on
--- NOTE | 2022-01-08 11:52 | PM.IMPN ---
Progress Note: A&P Assessment and Plan (1) Congestive heart failure with left ventricular systolic dysfunction (LVSD): Code(s): I50.20 - Unspecified systolic (congestive) heart failure Status: Acute Assessment and Plan: Continue carvedilol and lisinopril. Continue furosemide 40 mg IV daily and possibly transition oral furosemide tomorrow., low-salt diet. (2) Syncope: Code(s): R55 - Syncope and collapse Status: Acute Assessment and Plan: Will keep on telemetry. (3) Polysubstance use disorder: Code(s): F19.90 - Other psychoactive substance use, unspecified, uncomplicated Status: Acute Assessment and Plan: Substance abuse counseling is performed. Continue to avoid alcohol. He has to stop methamphetamine use (4) Elevated troponin: Code(s): R77.8 - Other specified abnormalities of plasma proteins Status: Acute Assessment and Plan: likely demand ischemia Plan possible discharge tomorrow Subjective Date/time seen: 01/08/22 11:52 stable. On room air. No shortness of breath Review of Systems Review of Systems: All systems reviewed & are unremarkable except as noted in HPI and below Constitutional: Constitutional: Denies body ache(s) and Denies excessive sweating Eyes: Eyes: Denies blurry vision ENT: Reports Normal hearing present Cardiovascular: Cardiovascular: Denies chest pain, Reports leg edema and Reports dyspnea Respiratory: Respiratory: Reports cough and Reports dyspnea Gastrointestinal: Gastrointestinal: Denies abdominal pain Genitourinary: Genitourinary: Denies hematuria Musculoskeletal: Musculoskeletal: Denies back pain Integumentary/Breasts: Skin/Breast: Denies breast pain Neurologic: Reports Normal hearing present and Denies Abnormal speech present Psychiatric: Psychiatric: Denies anxiety Endocrine: Endocrine: Denies excessive sweating Hematologic/Lymphatic: Hematologic/Lymphatic: Denies easy bleeding Allergic/Immunologic: Allergic/Immunologic: Denies GI upset with certain foods Exam Const: General: comfortable and no acute distress HENMT: Face/Nose/Sinus: Normal nares present Mouth: Yes moist mucous membranes Eyes: Sclera: sclerae normal Neck: Neck: supple Carotids: no bruits Chest: Other: No chest wall pain to palpation Resp: Auscultation: clear to auscultation bilaterally and diminished lung sounds Cardio: Rate: tachycardic Rhythm: regular rhythm GI: Auscultation: normal bowel sounds Skin: General skin exam: normal color Other: Tattoos noted Neuro: Cranial nerves: Yes Normal hearing present Speech: normal speech and No Abnormal speech present Motor exam (neuro): 5/5 motor strength present throughout Extrem: General: edema Psych: Mental Status: mental status grossly normal Other: Somnolent Objective Data Vital Signs Vital Signs: Vital Signs - 24 hr 01/07/22 12:00 01/07/22 12:00 01/07/22 14:00 Temperature 98.0 F Pulse Rate 84 85 86 Respiratory Rate 20 Blood Pressure 75/52 L Pulse Oximetry 92 Oxygen Delivery Fraction of Inspired Oxygen 01/07/22 16:00 01/07/22 16:00 01/07/22 18:00 Temperature 98.1 F Pulse Rate 86 89 95 Respiratory Rate 20 Blood Pressure 85/60 L Pulse Oximetry 98 Oxygen Delivery Fraction of Inspired Oxygen 01/07/22 20:00 01/07/22 20:39 01/07/22 20:00 Temperature 97.3 F L Pulse Rate 89 74 74 Respiratory Rate 22 H 22 H Blood Pressure 100/62 Pulse Oximetry 96 96 Oxygen Delivery Room Air Fraction of Inspired Oxygen 40 01/07/22 20:00 01/07/22 23:15 01/07/22 23:50 Temperature 97.6 F Pulse Rate 93 92 Respiratory Rate 20 Blood Pressure 100/76 Pulse Oximetry 97 Oxygen Delivery Autopap Fraction of Inspired Oxygen 01/07/22 22:00 01/08/22 02:00 01/08/22 04:00 Temperature 97 F L Pulse Rate 105 H 103 H 91 Respiratory Rate 18 Blood Pressure 110/82 Pulse Oximetry 100 Ox
[2022-01-08 14:00] VITALS: BP 96/78; PULSE 91; RESP 20; TEMP 36.1; O2SAT 97
--- NOTE | 2022-01-08 16:37 | PC.NURSE ---
Patient notified of risks of leaving AMA. Dr. Bearden notified. Patient signed AMA form.
== END 2022-01-08 16:47 | disposition left against medical advice (07) | DRG 293 ==
LOC: ANHED 22:40 → ANHIMU 01-06 00:19 → ANH3MED 01-08 09:40
PROVIDERS: Family Medicine; Admitting Provider Internal Medicine; Emergency Provider Emergency Medicine; Visit Provider Hospitalist
DX: I50.23 Acute on chronic systolic (congestive) heart failure (principal); R77.8 Other specified abnormalities of plasma proteins; F19.90 Other psychoactive substance use, unspecified, uncomplicated; F31.9 Bipolar disorder, unspecified; R55 Syncope and collapse; F17.210 Nicotine dependence, cigarettes, uncomplicated; F10.21 Alcohol dependence, in remission; Z20.822 Contact with and (suspected) exposure to COVID-19
CPT/HCPCS: 36415; 70450; 71275; 80048; 80053; 83735; 83880; 84484; 85025; 85380; 85610; 85730; 93005; 94002; 94003; 94660; 96374; 99285; A9270; C8929; J1650; J1940; J2060; Q9957; Q9967; U0003; U0005

== ENCOUNTER 2022-01-11 10:18 | Observation (INO) | payer MEDICARE, SELFPAY ==
[2022-01-11] VITALS (29 sets, daily range): BP systolic 105–156; BP diastolic 75–106; PULSE 102–119; RESP 12–32; TEMP 36.2–36.7; O2SAT 95–100; BMI 33.1
--- NOTE | ~2022-01-11 | XR_ITS ---
EXAMINATION: XR chest 1V INDICATION: Chest pain and shortness of breath TECHNIQUE: PA view of the chest is obtained. COMPARISON: None available FINDINGS: Lung volumes are low. Cardiomegaly is noted. There is a mild diffuse interstitial pattern. No pleural effusion or pneumothorax. IMPRESSION: 1. Cardiomegaly with mild pulmonary edema. Reviewed, dictated and finalized at location A. ECT TECHNICIAN
--- NOTE | ~2022-01-11 | CT_ITS ---
EXAMINATION: CTA chest abdomen pelvis DATE: 01/12/2022 02:18 INDICATION: Left lower quadrant abdominal pain. Left chest pain. TECHNIQUE: Computed tomographic angiography (CTA) of the chest, abdomen, and pelvis was performed wit h 100 mL Omnipaque-350 intravenous contrast. Automated exposure control and iterative reconstruction technique were employed. The dose-length product was 1477.69 mGy-cm. Maximum intensity projection 3D- reconstructions of the aorta and other arteries were constructed by the technologist on a separate wo rkstation. COMPARISON: Chest CT 01/05/2022 FINDINGS: CHEST CTA: The lungs demonstrate mild atelectasis. There is smooth septal thickening, consistent mild pulmonary edema. A calcified right lung nodule and calcified right hilar and mediastinal lymph nodes are consis tent with old granulomatous disease. No pleural effusion. Cardiomegaly is noted. There are coronary a rtery calcifications. No pericardial effusion. There is mild aortic atherosclerosis. No aneurysm or d issection. There is mild thoracic spondylosis. ABDOMEN AND PELVIS CTA: The liver, gallbladder, spleen, pancreas, and adrenal glands are normal. There is cortical thinning o f the kidneys. There is diverticulosis of the colon without evidence of diverticulitis. The appendix is normal. There are no dilated loops of bowel. There are no pathologically enlarged lymph nodes. The re is no free intraperitoneal fluid. There is mild aortic atherosclerosis. There is moderate stenosis of celiac axis, likely secondary to median arcuate ligament compression. There is no significant francisco nosis of superior mesenteric artery, the renal arteries, or inferior mesenteric artery. There is mode rate lumbar spondylosis. IMPRESSION: 1. Mild pulmonary edema. 2. Cardiomegaly. 3. Mild aortic atherosclerosis. No aneurysm or dissection. Reviewed, dictated and finalized at location A. CHER TAPE CONTROLLED MACHINE
--- NOTE | 2022-01-11 10:20 | ECG_ITS ---
Measurements Intervals [place] Rate: 113 P: 62 SD: 172 QRS: -11 QRSD: 109 T: 105 QT: 353 QTc: 486 Interpretive Statements SINUS TACHYCARDIA LEFT ATRIAL ENLARGEMENT INCOMPLETE LEFT BUNDLE BRANCH BLOCK BORDERLINE R WAVE PROGRESSION, ANTERIOR LEADS ST-T WAVE ABNORMALITY IN HIGH LATERAL LEADS- CONSIDER ISCHEMIA BASELINE ARTIFACT- I, AVR, AVL ABNORMAL ECG COMPARED TO ECG 01/05/2022 18:39:21 ST-T WAVE ABNORMALITY IN HIGH LATERAL LEADS- CONSIDER ISCHEMIA NOW PRESENT Electronically Signed On 01-11-2022 10:51:55 [employer] by Cecil Ashton D.O.
[2022-01-11 11:31] LABS: Basophils Percent Auto 0.5 % (0.2-1.2); Eosinophils Absolute Auto 0.1 K/mm3 (0-0.3); Eosinophils Percent Auto 1.2 % (0-4.4); Hematocrit 41.8 % (42.0-52.0); Hemoglobin 12.4 g/dL (14.0-18.0); Immature Granulocyte Absolute 0.03 K/mm3 (0.00-0.031); Immature Granulocyte Percent A 0.4 % (0-0.5); Lymphocytes Absolute Auto 1.82 K/mm3 (0.9-3.2); Lymphocytes Percent Auto 22.1 % (18.3-44.2); Mean Corpuscular HGB Conc 29.7 g/dl (32-36); Mean Corpuscular Hemoglobin 23.2 pg (26-34); Mean Corpuscular Volume 78.1 fl (80-100); Mean Platelet Volume 9.5 fl (7.4-10.4); Monocytes Absolute Auto 0.7 K/mm3 (0.1-0.6); Monocytes Percent Auto 8.7 % (2.6-8.5); Neutrophils Absolute Auto 5.5 K/mm3 (1.3-6.7); Neutrophils Percent Auto 67.1 % (45.5-73.1); Platelet Count Result 255 k/mm3 (150-375); Red Blood Count 5.35 M/mm3 (4.6-6.20); Red Cell Distribution Width 16.6 % (11.5-14.5); White Blood Count 8.2 K/mm3 (4.5-10.0)
[2022-01-11 11:42] LABS: INR 1.2; Prothrombin Time 14.9 Seconds (11.1-14.7)
[2022-01-11 11:43] LABS: Partial Thromboplastin Time 25.1 SECONDS (22.3-36.8)
[2022-01-11 11:50] LABS: Alanine Aminotransferase 37 U/L (6-50); Albumin Level 3.8 g/dL (3.5-5.1); Alkaline Phosphatase 141 U/L (38-126); Anion Gap 8 mmol/L (8-16); Aspartate Amino Transferase 44 U/L (17-59); Bilirubin,Total 0.7 mg/dL (0.2-1.3); Blood Urea Nitrogen 41 mg/dL (9-20); Calcium 8.4 mg/dL (8.4-10.2); Carbon Dioxide 24 mmol/L (22-30); Chloride 103 mmol/L (98-107); Estimated CRCL calculation 71 ml/min; Estimated Glomerular Filt Rate 54; Glucose 153 mg/dL (65-110); Lipase 133 U/L (23-300); Potassium 4.4 mmol/L (3.4-5.0); Sodium 135 mmol/L (137-145)
[2022-01-11 12:06] LABS: Troponin I 0.046 ng/mL (0.000-0.034)
--- NOTE | 2022-01-11 12:40 | ED.CHESTPAIN ---
HPI - Chest Pain General Chief Complaint: Chest Pain Stated Complaint: Chest pain, 0600 this am Time Seen by Provider: 01/11/22 12:20 History of Present Illness HPI narrative: Patient is a 46-year-old male who presents ER with chest pain. Began earlier today. Reports it feels like somebody is ripping his heart out of his chest. It radiates into his left shoulder. He reports chronic dyspnea. He reports history of reduced ejection fraction. He was recently hospitalized here and was being diuresed. He left AMA because he has anger issues. Patient reports no change in his chronic dyspnea. No aggravating alleviating factors. Related Data Home Medications Medication Instructions Recorded Confirmed carvedilol 3.125 mg tablet 3.125 mg PO DAILY 01/06/22 01/11/22 carvedilol 6.25 mg tablet 6.25 mg PO HS 01/06/22 01/06/22 furosemide 40 mg tablet 40 mg PO DAILY 01/06/22 01/11/22 lisinopril 5 mg tablet 5 mg PO DAILY 01/06/22 01/11/22 magnesium oxide 400 mg (241.3 mg 400 mg PO DAILY 01/06/22 01/11/22 magnesium) tablet potassium chloride 10 mEq 10 meq PO DAILY 01/06/22 01/11/22 tablet,extended release carvedilol 3.125 mg tablet 3.125 mg PO DAILY 01/11/22 01/11/22 carvedilol 3.125 mg tablet mg 01/11/22 carvedilol 6.25 mg tablet 6.25 mg PO QHS 01/11/22 01/11/22 carvedilol 6.25 mg tablet 6.25 mg PO QHS 01/11/22 01/11/22 Allergies Allergy/AdvReac Type Severity Reaction Status Date / Time Penicillins Allergy Unknown Verified 01/05/22 19:52 [facility] Past Medical History Medical History (Updated 01/11/22 @ 21:17 by Rush Montoya MD) Bipolar 1 disorder Congestive heart failure with left ventricular systolic dysfunction (LVSD) Polysubstance use disorder Surgical History Surgical History (Updated 01/11/22 @ 19:18 by Tamara Oshea PA-C) History of hand surgery Family History Family History Father Heart disease Hypertension Cancer Mother Unknown family medical history Social History Social History (Updated 01/11/22 @ 19:18 by Tamara Oshea PA-C) Social History: Patient has a history of alcoholism but quit approximately 1 year ago. Uses tobacco daily, uses methamphetamine frequently, denies cocaine use. Used IV drugs but has not used in the last 1 year. Surrogate medical decision maker: Amaris Berumener, significant other. Code status: Do not resuscitate. Smoking packs per day: 0.5 Smoking cigarettes per day: 10.0 Years smoked: 38 Smoking pack-years: 19.00 Smoking status: Current every day smoker Tobacco type: cigarettes Second hand tobacco smoke exposure: Yes Alcohol intake: never Substance use type: marijuana and methamphetamine Other substance usage details: Last use today Lack of Transportation: YES Lack of Food: Often True Current Housing: I Have Housing Concerned About Future Housing: No Difficulty Paying Gas/Electric Bills: No Difficulty Paying for Meds: YES Currently Unemployed: No Education: High School Diploma/GED Difficulty w/ Childcare or Family Care: No Spiritual care concerns: No Exam Narrative: GENERAL: Well-appearing, well-nourished, and in no acute distress. HEAD: Normocephalic, atraumatic. EYES: PERRL and EOMI. ENT: Mucous membranes moist. CHEST: Clear to auscultation. No respiratory distress. HEART: Regular rate and rhythm. Normal peripheral pulses. ABDOMEN: Soft, nontender, nondistended. EXTREMITIES: Normal range of motion. No edema. SKIN: Warm, dry, no rash. NEURO: Alert and oriented x3. PSYCH: Normal mood and affect. Course Course Emergency Course: Admit to hospital service for diuresis and further evaluation/management of CHF with severely reduced ejection fraction. Vital Signs Vital signs: Vital Signs Temperature 97.4 F L 01/11/22 10:28 Pulse Rate 113 H 01/11/22 10:28 Respiratory Rate 24 H 01/11/22 10:28 Blood Pressure 126/79 01/11/22 10:28
[2022-01-11 13:04] LABS: NT Pro B Type Natriuretic Pept 12000 pg/mL (5-100)
[2022-01-11] MEDS: FUROSEMIDE INJ 40 MG/4 ML VIAL IV PUSH ×2 (13:32→21:03)
[2022-01-11] MEDS: ASPIRIN 81 MG CHEWABLE TABLET 324 MG PO (13:33)
[2022-01-11 14:33] LABS: Troponin I 0.048 ng/mL (0.000-0.034)
--- NOTE | 2022-01-11 15:00 | PM.IMHP ---
H&P: HPI History of Present Illness Date/Time: 01/11/22 15:00 Chief Complaint: Chest pain and shortness of breath. Narrative: This is an unfortunate 46-year-old male smoker with ongoing methamphetamine use, alcohol abuse of which he has abstained for over a year, and heart failure with reduced ejection fraction as low as 10 to 15% who presented to the emergency department from home for evaluation of chest pain and shortness of breath. His quality of life is poor and he has chronic shortness of breath to the point where he is unable to speak in full sentences. He has difficulties eating and sleeping due to shortness of breath and despite this he has not been able to kick the methamphetamine habit. It has been about a year since [place] and he wore a LifeVest for only a brief period of time before sending it back. He was admitted to the hospital just last week after syncopal episode and CHF exacerbation and at that time he was seen by cardiology and they resumed the standard CHF regimen of carvedilol, lisinopril, and furosemide which he had not been compliant with as an outpatient. He left against medical advice several days after admission. He has been at his baseline since leaving the hospital however today he developed severe mid chest pain radiating to the left shoulder he came back in for evaluation. He describes the pain as ?somebody ripping my heart out of my chest? and he has not noticed any aggravating factors. Morphine did help somewhat in the emergency department. His blood pressures have been stable since arrival to the ER. He has been persistently tachycardic in the low 100s. His troponin and BNP were both elevated but flat when compared to labs drawn during his most recent stay. EKG showed ST T-wave abnormalities in the high lateral leads which appears to be new from a prior tracing and he is being admitted in this setting. At the time my evaluation he is feeling a bit better after receiving morphine. He continues to feel short of breath which is nothing new. He has no sensations of racing heart or palpitations. He also denies lightheadedness, dizziness, pleuritic pain, nausea, vomiting, and sweats. Review of Systems Review of Systems: Twelve systems were reviewed. No cold or flu symptoms. No sick contacts. Appetite has been fair; he has frequent nausea. No vomiting or diarrhea. No dysuria. Sleeps poorly as he is always short of breath. The shortness of breath does not improve with sitting up apparently. He has chronic lower extremity edema which is not new and he denies calf pain and tenderness. No history of venous thromboembolism. Except as documented, all other systems were reviewed and are negative. FOR[facility], [facility] Past Medical History Medical History (Updated 01/11/22 @ 19:22 by Tamara Oshea PA-C) Bipolar 1 disorder Congestive heart failure with left ventricular systolic dysfunction (LVSD) Polysubstance use disorder Surgical History Surgical History (Updated 01/11/22 @ 19:18 by Tamara Oshea PA-C) History of hand surgery Family History Family History Father Heart disease Hypertension Cancer Mother Unknown family medical history Social History Social History (Updated 01/11/22 @ 19:18 by Tamara Oshea PA-C) Social History: Patient has a history of alcoholism but quit approximately 1 year ago. Uses tobacco daily, uses methamphetamine frequently, denies cocaine use. Used IV drugs but has not used in the last 1 year. Surrogate medical decision maker: Amaris Herman, significant other. Code status: Do not resuscitate. Smoking packs per day: 0.5 Smoking cigarettes per day: 10.0 Years smoked: 38 Smoking pack-years: 19.00 Smoking status: Current every day smoker Tobacco type: cigarettes Second hand tobacco smoke exposure: Yes Alcohol intake: never Substance use type: marijuana and metha
[2022-01-11] MEDS: MORPHINE SULFATE (*CRX) 2 MG/ML INJ IV PUSH ×2 (15:15→22:40)
[2022-01-11 15:45] LABS: Influenza A QL RT-PCR Negative (Negative); Influenza B QL RT-PCR Negative (Negative); RSV RNA, RT-PCR Negative (Negative); SARS-CoV-2 RNA PCR Negative
[2022-01-11 17:11] LABS: Troponin I 0.046 ng/mL (0.000-0.034)
--- NOTE | 2022-01-11 17:53 | ADMGEN ---
This patient, Enrique Nichols, was admitted to IMU Room 209-01 at 1731 on 01/11/2022. Patient oriented to hospital policies and general routines including ID bracelet, bed and alarms, visiting hours, pain management, procedures, bathroom and other care routines, personal items, smoking policy, room service/diet, and visiting hours. Information on how to activate the Rapid Response Team has been discussed. Patient/Family are encouraged to report perceived risks to care and to ask questions if they do not understand what they are told or what they should do.
[2022-01-11] MEDS: carvediloL 12.5 MG TABLET PO (21:03)
[2022-01-11 21:06] LABS: Reticulocyte Hemoglobin Conten 21.7 pg (28.2-35.7); Reticulocyte Percent 2.16 % (0.7-4.3); Reticulocytes Absolute 0.13 B/L (32.2-175.7)
[2022-01-11] MEDS: HYDROcodone/acetaminophen (*CRX) 5-325 MG TABLET 1 TAB PO (21:14)
[2022-01-11] MEDS: ALPRAZolam (*CRX) 0.5 MG TABLET PO (21:15)
[2022-01-11 21:20] LABS: Potassium 4.3 mmol/L (3.4-5.0)
[2022-01-11 21:21] LABS: D Dimer 0.57 ug/mL (<0.48)
[2022-01-11 21:26] LABS: Iron 50 ug/dL (49-181)
[2022-01-11 21:35] LABS: Percent Iron Saturation 8 % (20-50)
[2022-01-11] MEDS: ONDANSETRON INJ 4 MG/2 ML VIAL IV PUSH (22:54)
[2022-01-12] VITALS (8 sets, daily range): BP systolic 107–113; BP diastolic 73–80; PULSE 86–92; RESP 16–20; TEMP 36.1–36.4; O2SAT 98–99
[2022-01-12] MEDS: HYDROcodone/acetaminophen (*CRX) 5-325 MG TABLET 1 TAB PO (02:19)
[2022-01-12 05:06] LABS: Hematocrit 40.4 % (42.0-52.0); Mean Corpuscular HGB Conc 29.7 g/dl (32-36); Mean Corpuscular Hemoglobin 23.4 pg (26-34); Mean Corpuscular Volume 78.9 fl (80-100); Mean Platelet Volume 9.6 fl (7.4-10.4); Platelet Count Result 246 k/mm3 (150-375); Red Blood Count 5.12 M/mm3 (4.6-6.20); Red Cell Distribution Width 16.2 % (11.5-14.5); White Blood Count 7.3 K/mm3 (4.5-10.0)
[2022-01-12 05:14] LABS: Anion Gap 9 mmol/L (8-16); Blood Urea Nitrogen 36 mg/dL (9-20); Calcium 7.9 mg/dL (8.4-10.2); Carbon Dioxide 29 mmol/L (22-30); Chloride 100 mmol/L (98-107); Estimated CRCL calculation 68 ml/min; Estimated Glomerular Filt Rate 54; Glucose 115 mg/dL (65-110); Magnesium 1.9 mg/dL (1.6-2.3); Potassium 3.8 mmol/L (3.4-5.0); Sodium 138 mmol/L (137-145)
--- NOTE | 2022-01-12 07:46 | PM.IMPN ---
Progress Note: A&P Assessment and Plan (1) Chest pain: Code(s): R07.9 - Chest pain, unspecified Status: Acute (2) Elevated troponin: Code(s): R77.8 - Other specified abnormalities of plasma proteins Status: Acute (3) Acute on chronic systolic congestive heart failure: Code(s): I50.23 - Acute on chronic systolic (congestive) heart failure Status: Acute (4) Methamphetamine abuse: Code(s): F15.10 - Other stimulant abuse, uncomplicated Status: Acute Plan The patient presented to the emergency department today for evaluation of severe mid chest pain radiating to the left shoulder. He is quite short of breath on exam though he reports that he is at his baseline with regards to his work of breathing. Troponin was elevated and he is being admitted in this setting to rule out acute coronary syndrome. EKG does show some ST T-wave abnormalities as detailed above. Troponins will be trended to peak. He received aspirin 324 milligrams x 1 in the emergency department. He is once again edematous and has some pulmonary edema on imaging and he will be diuresed with close monitoring of volume status, renal function, and I/O. Resume carvedilol and lisinopril. We once again discussed the recommendations that he wear LifeVest. We also discussed the importance of getting off of methamphetamines; he was an IV user for many years in the last year he has been smoking. He understands the importance but the addiction has been hard for him to kick. He is persistently tachycardic, possibly related to beta-doug withdrawal however with his lower extremity edema DVT and PE are considerations though less likely. Lower extremity venous Doppler ultrasounds have been ordered to rule out DVT. D-dimer ordered and if positive he will be sent for a CTA of the chest. Check TSH. Subjective Date/time seen: 01/12/22 07:46 Objective Data Vital Signs Vital Signs: Vital Signs - 24 hr 01/11/22 10:28 01/11/22 15:19 01/11/22 12:44 Temperature 97.4 F L Pulse Rate 113 H 102 H 107 H Respiratory Rate 24 H 20 Blood Pressure 126/79 Pulse Oximetry 100 99 Oxygen Delivery Room Air 01/11/22 12:45 01/11/22 13:03 01/11/22 13:16 Temperature Pulse Rate 105 H 108 H 105 H Respiratory Rate 23 H 32 H 23 H Blood Pressure Pulse Oximetry 97 99 Oxygen Delivery 01/11/22 13:48 01/11/22 14:00 01/11/22 14:20 Temperature Pulse Rate 114 H 118 H 115 H Respiratory Rate 18 19 20 Blood Pressure Pulse Oximetry Oxygen Delivery 01/11/22 14:30 01/11/22 14:48 01/11/22 15:00 Temperature Pulse Rate 119 H 116 H 113 H Respiratory Rate 27 H 23 H 22 H Blood Pressure 156/104 H Pulse Oximetry 96 Oxygen Delivery 01/11/22 15:27 01/11/22 15:30 01/11/22 15:45 Temperature Pulse Rate 110 H 111 H 112 H Respiratory Rate 25 H 25 H 22 H Blood Pressure Pulse Oximetry 95 99 Oxygen Delivery 01/11/22 15:46 01/11/22 17:19 01/11/22 15:47 Temperature Pulse Rate 112 H 110 H 113 H Respiratory Rate 27 H 24 H 20 Blood Pressure 129/106 H 149/95 H Pulse Oximetry 97 96 Oxygen Delivery 01/11/22 16:00 01/11/22 16:15 01/11/22 16:37 Temperature Pulse Rate 112 H 106 H 110 H Respiratory Rate 22 H 15 23 H Blood Pressure Pulse Oximetry Oxygen Delivery 01/11/22 16:59 01/11/22 17:00 01/11/22 17:26 Temperature Pulse Rate 106 H 111 H 110 H Respiratory Rate 12 19 20 Blood Pressure 120/88 Pulse Oximetry 98 Oxygen Delivery 01/11/22 18:10 01/11/22 20:00 01/11/22 21:03 Temperature 97.2 F L 97.3 F L Pulse Rate 106 H 112 H 115 H Respiratory Rate 16 22 H Blood Pressure 105/75 133/90 Pulse Oximetry 97 99 Oxygen Delivery 01/11/22 23:45 01/11/22 20:00 01/11/22 22:00 Temperature 98.1 F Pulse Rate 107 H 111 H 115 H Respiratory Rate 24 H Blood Pressure 125/96 H Pulse Oximetry 98 Oxygen Delivery 01/12/22 00:00 01/12/22 02:00 01/12/22 04
[2022-01-12] MEDS: ENOXAPARIN 40 MG/0.4 ML SYRINGE SUB-Q (09:36)
[2022-01-12] MEDS: carvediloL 12.5 MG TABLET PO (09:36)
[2022-01-12] MEDS: FUROSEMIDE INJ 40 MG/4 ML VIAL IV PUSH (09:36)
[2022-01-12] MEDS: lisinopriL 5 MG TABLET PO (09:37)
--- NOTE | 2022-01-12 11:16 | PM.CNCAR ---
Assessment and Plan Assessment and plan (1) Chest pain: Code(s): R07.9 - Chest pain, unspecified Status: Acute Assessment and Plan: Atypical, constant, as patient acknowledges, and as previously documented, worse after using methamphetamines. no pulmonary embolism or aortic dissection. Most likely secondary to polysubstance abuse. CT reveals coronary atherosclerosis -calcifications all can not exclude obstructive underlying CAD very likely primary contribution. Furthermore, I do not have access to his previous cardiovascular workup at this time. Will need to review and to assess if left heart catheterization performed previously. nonetheless, even if obstructive CAD contributing pathology given his well-established noncompliance with medications, ongoing polysubstance abuse, and having left against medical advice just recently after hospitalization for similar symptoms he would not be candidate for invasive angiography and or PCI/stent implantation even if necessary due to high risk for rate dangers and or potentially catastrophic/fatal stent thrombosis. Continue medical management. Patient must abstain from methamphetamine abuse, alcohol and tobacco abuse. Continue aspirin 81 mg daily. DVT prophylaxis aspirin 81 mg daily. Check lipid panel. Add Atorvastatin 10mg qhs given coronary calcification on CT chest. (2) Elevated troponin: Code(s): R77.8 - Other specified abnormalities of plasma proteins Status: Acute Assessment and Plan: Minimally elevated flat curve not secondary to acute coronary syndrome and/or plaque rupture but consistent with a type 2 infarction likely due to methamphetamine abuse, severe LV systolic dysfunction most likely nonischemic etiology related to methamphetamine and or alcohol abuse. No evidence for dissection or acute pulmonary embolism. ECG largely unchanged. (3) Methamphetamine abuse: Code(s): F15.10 - Other stimulant abuse, uncomplicated Status: Acute Assessment and Plan: As above. Patient must abstain immediately in absolutely from all poly substance abuse and in particular methamphetamine. Risk for from arrhythmia given severe LV systolic dysfunction as high and given his history of noncompliance with recommendations, medications and continue to use methamphetamine he places himself at very high in great risk potentially fatal complications. He has been counseled in this regard. Unfortunately, he left last hospitalization against medical advice and has not returned to same symptoms after once again using methamphetamines. senior administrative services officer consultation for assistance. (4) Congestive heart failure with left ventricular systolic dysfunction (LVSD): Code(s): I50.20 - Unspecified systolic (congestive) heart failure Status: Acute Assessment and Plan: Patient is reasonably compensated better at high risk for decompensated heart failure, chronically elevated proBNP. Reduce Lasix to 40 mg daily and observe response. (5) Noncompliance w/medication treatment due to intermit use of medication: Code(s): Z91.14 - Patient's other noncompliance with medication regimen Status: Acute Assessment and Plan: as above. Patient places himself at grave risk for complications including arrhythmias, heart failure and/or secondary to ventricular tachycardia and or ventricular fibrillation given severe LV dysfunction EF less than 15%. Given his noncompliance is not a candidate for ICD and has previously declined life vest. (6) Polysubstance use disorder: Code(s): F19.90 - Other psychoactive substance use, unspecified, uncomplicated Status: Acute Assessment and Plan: Critically important as above. History of Present Illness History of Present Illness Consult date/time: Date of service:01/12/22 11:16 Requesting physician: Tamara Oshea PA-C Consult reason: chest pain Reason For Visit: CHF
[2022-01-12 12:05] LABS: Cholesterol 148 mg/dL (0-200); HDL Direct 25 mg/dL; Triglycerides 125 mg/dL (<150)
[2022-01-12 12:15] LABS: LDL Cholesterol Direct 103 mg/dL
--- NOTE | 2022-01-12 18:44 | PM.DS ---
DS: Admitting Diagnosis Discharge Date 01/12/22 Admitting Diagnosis Chest pain DS: Discharge Diagnosis Discharge Diagnosis (1) Chest pain: Code(s): R07.9 - Chest pain, unspecified Status: Acute (2) Elevated troponin: Code(s): R77.8 - Other specified abnormalities of plasma proteins Status: Acute (3) Acute on chronic systolic congestive heart failure: Code(s): I50.23 - Acute on chronic systolic (congestive) heart failure Status: Acute (4) Methamphetamine abuse: Code(s): F15.10 - Other stimulant abuse, uncomplicated Status: Acute DS: Summary Hospital Course Hospital Course: 46-year-old male smoker with ongoing methamphetamine use, alcohol abuse of which he has abstained for over a year, and heart failure with reduced ejection fraction as low as 10 to 15% who presented to the emergency department from home for evaluation of chest pain and shortness of breath. His quality of life is poor and he has chronic shortness of breath to the point where he is unable to speak in full sentences. He has difficulties eating and sleeping due to shortness of breath and despite this he has not been able to kick the methamphetamine habit. It has been about a year since [place] and he wore a LifeVest for only a brief period of time before sending it back. He was admitted to the hospital just last week after syncopal episode and CHF exacerbation and at that time he was seen by cardiology and they resumed the standard CHF regimen of carvedilol, lisinopril, and furosemide which he had not been compliant with as an outpatient. He left against medical advice several days after admission. He has been at his baseline since leaving the hospital however today he developed severe mid chest pain radiating to the left shoulder he came back in for evaluation. He describes the pain as ?somebody ripping my heart out of my chest? and he has not noticed any aggravating factors.? Morphine did help somewhat in the emergency department. His blood pressures have been stable since arrival to the ER. He has been persistently tachycardic in the low 100s. His troponin and BNP were both elevated but flat when compared to labs drawn during his most recent stay. EKG showed ST T-wave abnormalities in the high lateral leads which appears to be new from a prior tracing and he is being admitted in this setting. At the time my evaluation he is feeling a bit better after receiving morphine. He continues to feel short of breath which is nothing new. He has no sensations of racing heart or palpitations. He also denies lightheadedness, dizziness, pleuritic pain, nausea, vomiting, and sweats. Patient places himself at grave risk for complications including arrhythmias, heart failure and/or secondary to ventricular tachycardia and or ventricular fibrillation given severe LV dysfunction EF less than 15%.? Given his noncompliance is not a candidate for ICD and has previously declined life vest. Patient must abstain immediately in absolutely from all poly substance abuse and in particular methamphetamine.? Risk for from arrhythmia given severe LV systolic dysfunction as high and given his history of noncompliance with recommendations, medications and continue to use methamphetamine he places himself at very high in great risk potentially fatal complications.? He has been counseled in this regard.? Unfortunately, he left last hospitalization against medical advice and has not returned to same symptoms after once again using methamphetamines.? donor services technician consultation for assistance. Add aspirin 81 mg, Lipitor 10 mg, follow-up outpatient. All symptoms resolved, patient appeared euvolemic, he was discharged in stable condition with close outpatient follow-up by Cardiology. Time Spent with Patient Time attestation: Total time spent providing and/or coordinating discharge services: Exam Narrative: General:
[2022-01-14 07:26] LABS: Free T4 Free Thyroxine Reflex 1.14 ng/dL (0.78-2.19)
[2022-01-14 09:56] LABS: Total Triiodothyronine (T3) 1.39 NG/ML (0.97-1.69)
== END 2022-01-12 18:00 | disposition home or self-care (01) ==
LOC: ANHED 12:34 → ANHIMU 17:57
PROVIDERS: Emergency Medicine; Internal Medicine Cardiovascular Disease; Physician Assistant; Admitting Provider Family Medicine; Emergency Provider Emergency Medicine; Visit Provider Student in an Organized Health Care Education/Training Program
DX: R07.9 Chest pain, unspecified (principal); R77.8 Other specified abnormalities of plasma proteins; I50.23 Acute on chronic systolic (congestive) heart failure; F15.10 Other stimulant abuse, uncomplicated; R06.09 Other forms of dyspnea; I70.0 Atherosclerosis of aorta; I07.1 Rheumatic tricuspid insufficiency; I45.10 Unspecified right bundle-branch block; R94.31 Abnormal electrocardiogram [ECG] [EKG]; F31.9 Bipolar disorder, unspecified; F10.11 Alcohol abuse, in remission; F19.90 Other psychoactive substance use, unspecified, uncomplicated; F17.210 Nicotine dependence, cigarettes, uncomplicated; Z91.14 Patient's other noncompliance with medication regimen; Z79.899 Other long term (current) drug therapy; Z82.49 Family history of ischemic heart disease and other diseases of the circulatory system
CPT/HCPCS: 36415; 71045; 71275; 74174; 80048; 80053; 80061; 82607; 82728; 82746; 83540; 83550; 83690; 83735; 83880; 84132; 84439; 84443; 84480; 84484; 85025; 85027; 85046; 85380; 85610; 85730; 87637; 93005; 96372; 96374; 96375; 96376; 99285; A9270; G0378; J1650; J1940; J2270; J2405; Q9967

== ENCOUNTER 2022-01-15 04:06 | Inpatient (IN) | payer MEDICARE, SELFPAY ==
[2022-01-15] VITALS (44 sets, daily range): BP systolic 108–147; BP diastolic 73–112; PULSE 91–102; RESP 13–33; TEMP 35.7–36.4; O2SAT 72–100; BMI 34.9
--- NOTE | ~2022-01-15 | XR_ITS ---
EXAMINATION: XR chest 1V portable DATE: 01/15/2022 04:41 INDICATION: Chest pain. Shortness of breath. TECHNIQUE: A single frontal view of the chest was obtained. COMPARISON: Chest single view 01/11/2022, chest CT 01/12/2022 FINDINGS: There is a diffuse interstitial pattern, consistent mild pulmonary edema. No pleural effusi on or pneumothorax. Cardiomegaly is noted. IMPRESSION: 1. Mild pulmonary edema. 2. Cardiomegaly. Reviewed, dictated and finalized at location A. UCT ARCHITECT
--- NOTE | 2022-01-15 04:08 | ECG_ITS ---
Measurements Intervals [place] Rate: 97 P: 44 OR: 152 QRS: -26 QRSD: 113 T: 132 QT: 382 QTc: 486 Interpretive Statements SINUS RHYTHM POSSIBLE LEFT ATRIAL ENLARGEMENT INCOMPLETE LEFT BUNDLE BRANCH BLOCK POOR R WAVE PROGRESSION, ANTERIOR LEADS ST-T WAVE ABNORMALITY IN HIGH LATERAL LEADS- CONSIDER ISCHEMIA ABNORMAL ECG COMPARED TO ECG 01/11/2022 10:23:51 SINUS RHYTHM NOW PRESENT Electronically Signed On 01-15-2022 6:48:40 [employer] by Cecil Ashton D.O.
--- NOTE | 2022-01-15 04:23 | ED.GENADULT ---
HPI - General Adult General Chief complaint: Chest Pain Stated complaint: chest pain, sob, hx chf Time Seen by Provider: 01/15/22 04:14 History of Present Illness HPI narrative: Patient is a 46-year-old gentleman presents the emergency department with chief complaint of shortness of breath and chest pain. The patient has history of congestive heart failure with an EF of 15%. Patient reports he was just in the hospital and has had a 3 pound weight gain since he left the hospital patient also states last 24 hours he has used methamphetamine but is no longer injecting methamphetamine. The patient states that he feels extremely short of breath reports that he is not able to get comfortable in any position. Related Data Home Medications Medication Instructions Recorded Confirmed furosemide 40 mg tablet 40 mg PO DAILY 01/06/22 01/11/22 lisinopril 5 mg tablet 5 mg PO DAILY 01/06/22 01/11/22 magnesium oxide 400 mg (241.3 mg 400 mg PO DAILY 01/06/22 01/11/22 magnesium) tablet potassium chloride 10 mEq 10 meq PO DAILY 01/06/22 01/11/22 tablet,extended release Allergies Allergy/AdvReac Type Severity Reaction Status Date / Time Penicillins Allergy Unknown Verified 01/05/22 19:52 Review of Systems Review of Systems: A 10 system review of systems was completed on the patient and is negative except for what is stated in the HPI. Nursing and ancillary documentation was reviewed. [facility] Past Medical History Medical History Bipolar 1 disorder Congestive heart failure with left ventricular systolic dysfunction (LVSD) Polysubstance use disorder Surgical History Surgical History History of hand surgery Family History Family History Father Heart disease Hypertension Cancer Mother Unknown family medical history Social History Social History Social History: Patient has a history of alcoholism but quit approximately 1 year ago. Uses tobacco daily, uses methamphetamine frequently, denies cocaine use. Used IV drugs but has not used in the last 1 year. Surrogate medical decision maker: Amaris Virgil, significant other. Code status: Do not resuscitate. Smoking packs per day: 0.5 Smoking cigarettes per day: 10.0 Years smoked: 38 Smoking pack-years: 19.00 Smoking status: Current every day smoker Tobacco type: cigarettes Second hand tobacco smoke exposure: Yes Alcohol intake: never Substance use type: marijuana and methamphetamine Other substance usage details: Last use today Lack of Transportation: YES Lack of Food: Often True Current Housing: I Have Housing Concerned About Future Housing: No Difficulty Paying Gas/Electric Bills: No Difficulty Paying for Meds: YES Currently Unemployed: No Education: High School Diploma/GED Difficulty w/ Childcare or Family Care: No Spiritual care concerns: No Exam Narrative: GENERAL: Ill-appearing, well-nourished, and in moderate respiratory distress. HEAD: Normocephalic, atraumatic. EYES: PERRLA and EOMI. ENT: Nares clear, no rhinorrhea or epistaxis. Mucous membranes moist. NECK: Supple. CHEST: Clear to auscultation. No respiratory distress. HEART: Regular rate and rhythm. No murmur heard. Normal peripheral pulses. ABDOMEN: Soft, nontender, nondistended, normal active bowel sounds. EXTREMITIES: Normal range of motion. No edema. SKIN: Warm, dry, no rash. NEURO: No focal deficits. Alert and oriented x3. PSYCH: Normal mood and affect. Course Vital Signs Vital signs: Vital Signs Pulse Rate 98 01/15/22 04:24 Respiratory Rate 22 H 01/15/22 04:24 Blood Pressure 136/87 01/15/22 04:24 Pulse Oximetry 100 01/15/22 04:24 Oxygen Delivery BiPAP 01/15/22 04:24 Pulse Rate
[2022-01-15 04:41] LABS: Basophils Absolute Auto 0.1 K/mm3 (0.0-0.1); Basophils Percent Auto 0.7 % (0.2-1.2); Eosinophils Absolute Auto 0.2 K/mm3 (0-0.3); Eosinophils Percent Auto 2.4 % (0-4.4); Hematocrit 42.8 % (42.0-52.0); Hemoglobin 12.7 g/dL (14.0-18.0); Immature Granulocyte Absolute 0.04 K/mm3 (0.00-0.031); Immature Granulocyte Percent A 0.5 % (0-0.5); Lymphocytes Absolute Auto 3.13 K/mm3 (0.9-3.2); Lymphocytes Percent Auto 35.6 % (18.3-44.2); Mean Corpuscular HGB Conc 29.7 g/dl (32-36); Mean Corpuscular Hemoglobin 22.8 pg (26-34); Mean Platelet Volume 9.9 fl (7.4-10.4); Monocytes Absolute Auto 1.3 K/mm3 (0.1-0.6); Neutrophils Percent Auto 45.8 % (45.5-73.1); Nucleated Red Blood Cells Perc 0.2 % (0.0-0.2); Platelet Count Result 316 k/mm3 (150-375); Red Blood Count 5.56 M/mm3 (4.6-6.20); Red Cell Distribution Width 16.1 % (11.5-14.5); White Blood Count 8.8 K/mm3 (4.5-10.0)
[2022-01-15 04:50] LABS: INR 1.2; Partial Thromboplastin Time 27.2 SECONDS (22.3-36.8); Prothrombin Time 14.3 Seconds (11.1-14.7)
[2022-01-15] MEDS: ASPIRIN 81 MG CHEWABLE TABLET 324 MG PO (04:58)
[2022-01-15] MEDS: FUROSEMIDE INJ 40 MG/4 ML VIAL IV PUSH ×2 (04:58→21:02)
[2022-01-15 04:59] LABS: NT Pro B Type Natriuretic Pept 8220 pg/mL (5-100)
[2022-01-15 05:06] LABS: Platelet Estimate Adequate (Adequate); Polychromasia 1+ (NORMAL)
[2022-01-15 05:07] LABS: Anisocytosis 1+ (NORMAL); Macrocytosis 1+ (NORMAL); Microcytosis 1+ (NORMAL); Poikilocytosis 1+ (NORMAL)
[2022-01-15 05:08] LABS: Atypical Lymphocytes Present; Schistocytes None Seen (NORMAL)
[2022-01-15 05:19] LABS: Alanine Aminotransferase 38 U/L (6-50); Albumin Level 4.2 g/dL (3.5-5.1); Alkaline Phosphatase 162 U/L (38-126); Anion Gap 10 mmol/L (8-16); Aspartate Amino Transferase 52 U/L (17-59); Bilirubin,Total 0.7 mg/dL (0.2-1.3); Blood Urea Nitrogen 38 mg/dL (9-20); Calcium 8.7 mg/dL (8.4-10.2); Carbon Dioxide 24 mmol/L (22-30); Chloride 102 mmol/L (98-107); Estimated Glomerular Filt Rate 43; Glucose 111 mg/dL (65-110); Lipase 315 U/L (23-300); Potassium 5.4 mmol/L (3.4-5.0); Sodium 136 mmol/L (137-145); Troponin I 0.048 ng/mL (0.000-0.034)
[2022-01-15 05:41] LABS: Influenza A QL RT-PCR Negative (Negative); Influenza B QL RT-PCR Negative (Negative); SARS-CoV-2 RNA PCR Negative
[2022-01-15 08:03] LABS: Troponin I 0.055 ng/mL (0.000-0.034)
--- NOTE | 2022-01-15 10:40 | ADMGEN ---
This patient, Enrique Nichols, was admitted to IMU Room 204-01. Patient/family oriented to hospital policies and general routines including ID bracelet, bed and alarms, visiting hours, pain management, procedures, bathroom and other care routines, personal items, smoking policy, room service/diet, and visiting hours. Information on how to activate the Rapid Response Team has been discussed. Patient/Family are encouraged to report perceived risks to care and to ask questions if they do not understand what they are told or what they should do.
--- NOTE | 2022-01-15 11:23 | PM.IMHP ---
H&P: HPI History of Present Illness Date/Time: 01/15/22 11:23 Chief Complaint: Patient is a 46-year-old gentleman presents the emergency department with chief complaint of shortness of breath and chest pain.? The patient has history of congestive heart failure with an EF of 15%.? Patient reports he was just in the hospital and has had a 3 pound weight gain since he left the hospital patient also states last 24 hours he has used methamphetamine but is no longer injecting methamphetamine.? The patient states that he feels extremely short of breath reports that he is not able to get comfortable in any position. ON LICENSE OF [facility] Past Medical History Medical History Bipolar 1 disorder Congestive heart failure with left ventricular systolic dysfunction (LVSD) Polysubstance use disorder Surgical History Surgical History History of hand surgery Family History Family History Father Heart disease Hypertension Cancer Mother Unknown family medical history Social History Social History Social History: Patient has a history of alcoholism but quit approximately 1 year ago. Uses tobacco daily, uses methamphetamine frequently, denies cocaine use. Used IV drugs but has not used in the last 1 year. Surrogate medical decision maker: Amaris Herman, significant other. Code status: Do not resuscitate. Smoking packs per day: 0.5 Smoking cigarettes per day: 10.0 Years smoked: 38 Smoking pack-years: 19.00 Smoking status: Current every day smoker Second hand tobacco smoke exposure: Yes Alcohol intake: never Substance use type: marijuana, IV drugs and methamphetamine Last use: 01/15 Lack of Transportation: YES Lack of Food: Often True Current Housing: I Have Housing Concerned About Future Housing: No Difficulty Paying Gas/Electric Bills: No Difficulty Paying for Meds: YES Currently Unemployed: No Education: High School Diploma/GED Difficulty w/ Childcare or Family Care: No Spiritual care concerns: No Meds Home Medications and Allergies Home Medications Medication Instructions Recorded Confirmed Type furosemide 40 mg tablet 40 mg PO DAILY 01/06/22 01/15/22 History lisinopril 5 mg tablet 5 mg PO DAILY 01/06/22 01/15/22 History magnesium oxide 400 mg (241.3 mg 400 mg PO DAILY 01/06/22 01/15/22 History magnesium) tablet potassium chloride 10 mEq 10 meq PO DAILY 01/06/22 01/15/22 History tablet,extended release aspirin 81 mg tablet,delayed 81 mg PO QAM 1 month #30 tabs 01/12/22 01/15/22 Rx release atorvastatin 10 mg tablet 10 mg PO DAILY 1 month #30 tabs 01/12/22 01/15/22 Rx carvedilol 12.5 mg tablet (Coreg) 12.5 mg PO Q12HR 1 month #60 tabs 01/12/22 01/15/22 Rx hydroxyzine HCl 50 mg tablet 50 mg PO QID PRN anxiety #30 tabs 01/12/22 01/15/22 Rx Allergies Allergy/AdvReac Type Severity Reaction Status Date / Time Penicillins Allergy Unknown Verified 01/05/22 19:52 Vital Signs Vital Signs - 24 hr 01/15/22 04:24 01/15/22 04:30 01/15/22 05:45 Temperature Pulse Rate 98 98 96 Respiratory Rate 22 H 25 H 25 H Blood Pressure 136/87 Pulse Oximetry 100 100 100 Oxygen Delivery BiPAP BiPAP BiPAP Fraction of Inspired Oxygen 01/15/22 05:46 01/15/22 04:17 01/15/22 04:19 Temperature Pulse Rate 100 99 Respiratory Rate 27 H 30 H Blood Pressure 136/87 Pulse Oximetry 100 72 L Oxygen Delivery BiPAP Fraction of Inspired Oxygen 50 01/15/22 04:30 01/15/22 04:31 01/15/22 04:45 Temperature Pulse Rate 97 97 98 Respiratory Rate 25 H 29 H 24 H Blood Pressure 135/97 H Pulse Oximetry 100 100 100 Oxygen Delivery Fraction of Inspired Oxygen 01/15/22 05:02 01/15/22 05:04 01/15/22 05:20 Temperature Pulse Rate 100 98 102 H Respirator
[2022-01-15 12:01] LABS: Troponin I 0.042 ng/mL (0.000-0.034)
[2022-01-15] MEDS: carvediloL 12.5 MG TABLET PO (20:19)
[2022-01-15] MEDS: hydrOXYzine HCL 25 MG TABLET 50 MG PO (20:22)
[2022-01-16] VITALS: BP 108/80; PULSE 74; PULSE 85; PULSE 92; RESP 22; RESP 24; TEMP 36.4; O2SAT 97; O2SAT 99
[2022-01-16 04:00] VITALS: BP 112/79; PULSE 88; PULSE 89; RESP 26; TEMP 36.7; O2SAT 97
[2022-01-16 05:36] VITALS: PULSE 84
[2022-01-16 06:21] LABS: Anion Gap 13 mmol/L (8-16); Blood Urea Nitrogen 29 mg/dL (9-20); Calcium 8.7 mg/dL (8.4-10.2); Carbon Dioxide 24 mmol/L (22-30); Chloride 98 mmol/L (98-107); Estimated CRCL calculation 75 ml/min; Estimated Glomerular Filt Rate 59; Glucose 93 mg/dL (65-110); Potassium 4.1 mmol/L (3.4-5.0); Sodium 135 mmol/L (137-145)
[2022-01-16 06:26] LABS: Basophils Absolute Auto 0.1 K/mm3 (0.0-0.1); Basophils Percent Auto 1.1 % (0.2-1.2); Eosinophils Absolute Auto 0.3 K/mm3 (0-0.3); Eosinophils Percent Auto 3.5 % (0-4.4); Hematocrit 39.4 % (42.0-52.0); Immature Granulocyte Absolute 0.04 K/mm3 (0.00-0.031); Immature Granulocyte Percent A 0.5 % (0-0.5); Lymphocytes Absolute Auto 2.39 K/mm3 (0.9-3.2); Lymphocytes Percent Auto 29.7 % (18.3-44.2); Mean Corpuscular HGB Conc 30.5 g/dl (32-36); Mean Corpuscular Volume 75.5 fl (80-100); Mean Platelet Volume 9.7 fl (7.4-10.4); Monocytes Absolute Auto 1.4 K/mm3 (0.1-0.6); Monocytes Percent Auto 16.9 % (2.6-8.5); Neutrophils Absolute Auto 3.9 K/mm3 (1.3-6.7); Neutrophils Percent Auto 48.3 % (45.5-73.1); Nucleated Red Blood Cells Perc 0.4 % (0.0-0.2); Platelet Count Result 297 k/mm3 (150-375); Red Blood Count 5.22 M/mm3 (4.6-6.20); Red Cell Distribution Width 16.4 % (11.5-14.5); White Blood Count 8.1 K/mm3 (4.5-10.0)
[2022-01-16 08:00] VITALS: BP 116/76; PULSE 88; PULSE 89; RESP 19; TEMP 36.4; O2SAT 100
[2022-01-16 10:21] VITALS: PULSE 93
[2022-01-16] MEDS: lisinopriL 5 MG TABLET PO (10:21)
[2022-01-16] MEDS: ATORVASTATIN 10 MG TABLET PO (10:21)
[2022-01-16] MEDS: carvediloL 12.5 MG TABLET PO (10:21)
[2022-01-16] MEDS: ASPIRIN 81 MG ENTERIC TABLET PO (10:24)
[2022-01-16 12:00] VITALS: BP 112/72; PULSE 98; RESP 22; TEMP 36.4; O2SAT 99
--- NOTE | 2022-01-16 12:18 | PM.DS ---
DS: Admitting Diagnosis Discharge Date January 16, 2022 Admitting Diagnosis acute on chronic systolic CHF DS: Discharge Diagnosis Discharge Diagnosis (1) Noncompliance w/medication treatment due to intermit use of medication: Code(s): Z91.14 - Patient's other noncompliance with medication regimen Status: Acute (2) Methamphetamine abuse: Code(s): F15.10 - Other stimulant abuse, uncomplicated Status: Acute Assessment and Plan: recent use after discharge as well. (3) Acute on chronic systolic congestive heart failure: Code(s): I50.23 - Acute on chronic systolic (congestive) heart failure Status: Acute Assessment and Plan: Question noncompliance. He did also abused methamphetamine within the last 12:48 p.m.. Will resume home medications and give additional dose of Lasix. Patient has refused LifeVest in the past. He is also noncompliant and is not a candidate for ICD. (4) Polysubstance use disorder: Code(s): F19.90 - Other psychoactive substance use, unspecified, uncomplicated Status: Acute Assessment and Plan: Active DS: Summary Hospital Course Hospital Course: patient is a 46-year-old male with history of systolic heart failure secondary to methamphetamine abuse. He came in with acute exacerbation after amphetamine use. Also has history of medical noncompliance. Patient Reports that he does have his medications. He reports that he will start taking and be compliant with medications. Nonetheless patient was admitted he was given a couple doses of Lasix any subsequently improved. He is not requiring any oxygen he sitting up in his bed able to ambulate around his room with room air. To note patient is not a candidate for ICD and is not willing to wear LifeVest. Time Spent with Patient Time attestation: Total time spent providing and/or coordinating discharge services: Exam Narrative: General: alert and oriented Psych: appropriate mood nad affect Eyes: PERRLA Neck: Trachea midline, no new lesions Skin: no changes Lungs: CTA Cardiac: Normal S1,S2, no MGR ABD: soft, nd, nt, nbs Ext: no new lesions, no cce Vasc: Pulses intact DS: Data Data Completed and Pending Labs on day of discharge: Labs from last 24 hours 01/16/22 01/16/22 04:31 04:31 WBC 8.1 RBC 5.22 Hgb 12.0 L Hct 39.4 L MCV 75.5 L MCH 23.0 L MCHC 30.5 L RDW 16.4 H Plt Count 297 MPV 9.7 Immature Gran % (Auto) 0.5 Neut % (Auto) 48.3 Lymph % (Auto) 29.7 [place] % (Auto) 16.9 H Eos % (Auto) 3.5 Baso % (Auto) 1.1 Lymph # (Auto) 2.39 [place] # (Auto) 1.4 H Eos # (Auto) 0.3 Baso # (Auto) 0.1 Abs Immat Gran (auto) 0.04 H Absolute Neuts (auto) 3.9 Absolute Nucleated RBC 0.0 Nucleated RBC % 0.4 H Sodium 135 L Potassium 4.1 Chloride 98 Carbon Dioxide 24 Anion Gap 13 BUN 29 H Creatinine 1.30 Estim Creat Clear Calc 75 Estimated GFR 59 Glucose 93 Calcium 8.7 Discharge Plan Discharge Attending physician on discharge: Mychal Degroot Discharging Clinician: Mychal Degroot Patient Disposition: Home, Self-Care Activity: no preference Diet: as tolerated Patient Instructions: Antibiotic Form, How to Stop Smoking (DC) Stand Alone Forms: General Discharge Information Follow-up/Referrals: UNKNOWN,DOCTOR [Primary Care Provider] - Discharge Medications: Continued carvedilol [Coreg] 12.5 mg Tablet 12.5 mg PO Q12HR 30 Days Qty: 60 0RF atorvastatin 10 mg Tablet 10 mg PO DAILY 30 Days Qty: 30 0RF aspirin 81 mg Tablet,Delayed Release (Dr/Ec) 81 mg PO QAM 30 Days Qty: 30 0RF hydroxyzine HCl 50 mg tablet 50 mg PO QID PRN (Reason: anxiety) Qty: 30 0RF furosemide 40 mg tablet 40 mg PO DAILY potassium chloride 10 mEq tablet extended release 10 meq PO DAILY magnesium oxide 400 mg (241.3 mg magnesium) tablet 400 mg PO DAILY
[2022-01-16] MEDS: POTASSIUM CHLORIDE 10 MEQ TABLET.ER PO (12:32)
[2022-01-16] MEDS: MAGNESIUM OXIDE 400 MG TABLET PO (12:32)
== END 2022-01-16 13:26 | disposition home or self-care (01) | DRG 293 ==
LOC: ANHED 06:13 → ANHIMU 07:36
PROVIDERS: Admitting Provider Internal Medicine; Emergency Provider Emergency Medicine; Visit Provider Chiropractor
DX: I50.23 Acute on chronic systolic (congestive) heart failure (principal); Z91.14 Patient's other noncompliance with medication regimen; F15.10 Other stimulant abuse, uncomplicated; F19.90 Other psychoactive substance use, unspecified, uncomplicated; F17.210 Nicotine dependence, cigarettes, uncomplicated; R77.8 Other specified abnormalities of plasma proteins; F31.9 Bipolar disorder, unspecified; Z20.822 Contact with and (suspected) exposure to COVID-19; Z66 Do not resuscitate; Z79.82 Long term (current) use of aspirin; Z79.899 Other long term (current) drug therapy
CPT/HCPCS: 36415; 71045; 71275; 74174; 80048; 80053; 80061; 82607; 82728; 82746; 83540; 83550; 83690; 83735; 83880; 84132; 84439; 84443; 84480; 84484; 85025; 85027; 85046; 85380; 85610; 85730; 87636; 87637; 93005; 94002; 94003; 96372; 96374; 96375; 96376; 99285; A9270; G0378; J1650; J1940; J2270; J2405; Q9967

== ENCOUNTER 2022-02-04 13:18 | Outpatient (CLI) | payer MEDICARE, SELFPAY ==
[2022-02-04 13:49] LABS: Anion Gap 8 mmol/L (8-16); Blood Urea Nitrogen 29 mg/dL (9-20); Calcium 9.3 mg/dL (8.4-10.2); Carbon Dioxide 26 mmol/L (22-30); Chloride 100 mmol/L (98-107); Estimated Glomerular Filt Rate 50; Glucose 119 mg/dL (65-110); Potassium 5.1 mmol/L (3.4-5.0); Sodium 134 mmol/L (137-145)
== END 2022-02-04 13:19 | disposition home or self-care (01) ==
PROVIDERS: Visit Provider Nurse Practitioner
DX: I42.0 Dilated cardiomyopathy (principal)
CPT/HCPCS: 36415; 80048

== ENCOUNTER 2022-02-17 23:03 | Inpatient (IN) | payer MEDICARE, SELFPAY ==
--- NOTE | ~2022-02-17 | XR_ITS ---
XR chest 2V DATE: 02/17/2022 23:47 INDICATION: Shortness of breath, left chest pain TECHNIQUE: PA and lateral views COMPARISON: 01/15/2022 portable AP chest FINDINGS: There is globular enlargement of the cardiac silhouette which may be due to cardiomyopathy and/or pericardial effusion. No hilar or mediastinal enlargement. No pulmonary infiltrate or consolidation, pleural effusion or pulmonary vascular congestion or pneumo thorax is detected. Mild thoracic and lumbar scoliosis and degenerative change. IMPRESSION: Globular cardiac silhouette enlargement which may be due to cardiomyopathy and/or pericar dial effusion Reviewed, dictated and finalized at location A. N PIPE FINISHER IMPRESSION: Globular cardiac silhouette enlargement which may be due to cardiom yopathy and/or pericardial effusion
--- NOTE | 2022-02-17 23:07 | ECG_ITS ---
Measurements Intervals [place] Rate: 128 P: 34 MI: 150 QRS: 3 QRSD: 113 T: 57 QT: 401 QTc: 586 Interpretive Statements SINUS TACHYCARDIA POSSIBLE LEFT ATRIAL ENLARGEMENT INCOMPLETE LEFT BUNDLE BRANCH BLOCK COMPARED TO ECG 01/15/2022 04:28:41 SINUS TACHYCARDIA NOW PRESENT Electronically Signed On 02-18-2022 17:52:34 LONG TERM CARE SOCIAL WORKER by Ines Gandhi M.D.
[2022-02-17 23:09] VITALS: BP 127/97; PULSE 126; RESP 22; TEMP 36.4; O2SAT 97
[2022-02-17 23:14] VITALS: BP 132/72; PULSE 128; RESP 27
[2022-02-17 23:15] VITALS: PULSE 126; RESP 23
[2022-02-17 23:35] VITALS: PULSE 119; RESP 28; O2SAT 97
[2022-02-17 23:55] VITALS: PULSE 115; RESP 28; O2SAT 96
[2022-02-18] VITALS (47 sets, daily range): BP systolic 111–149; BP diastolic 81–112; PULSE 102–226; RESP 12–40; O2SAT 90–100
[2022-02-18 00:05] LABS: Basophils Absolute Auto 0.1 K/mm3 (0.0-0.1); Basophils Percent Auto 0.9 % (0.2-1.2); Eosinophils Absolute Auto 0.1 K/mm3 (0-0.3); Hematocrit 39.8 % (42.0-52.0); Hemoglobin 11.6 g/dL (14.0-18.0); Immature Granulocyte Absolute 0.06 K/mm3 (0.00-0.031); Immature Granulocyte Percent A 0.7 % (0-0.5); Lymphocytes Absolute Auto 2.82 K/mm3 (0.9-3.2); Lymphocytes Percent Auto 32.7 % (18.3-44.2); Mean Corpuscular HGB Conc 29.1 g/dl (32-36); Mean Corpuscular Hemoglobin 22.1 pg (26-34); Mean Platelet Volume 9.3 fl (7.4-10.4); Monocytes Percent Auto 11.1 % (2.6-8.5); Neutrophils Absolute Auto 4.6 K/mm3 (1.3-6.7); Neutrophils Percent Auto 53.6 % (45.5-73.1); Nucleated Red Blood Cells Perc 0.5 % (0.0-0.2); Platelet Count Result 306 k/mm3 (150-375); Red Blood Count 5.24 M/mm3 (4.6-6.20); Red Cell Distribution Width 18.5 % (11.5-14.5); White Blood Count 8.6 K/mm3 (4.5-10.0)
[2022-02-18 00:08] LABS: Alanine Aminotransferase 68 U/L (6-50); Alkaline Phosphatase 210 U/L (38-126); Anion Gap 9 mmol/L (8-16); Aspartate Amino Transferase 94 U/L (17-59); Bilirubin,Total 0.9 mg/dL (0.2-1.3); Blood Urea Nitrogen 30 mg/dL (9-20); Calcium 8.8 mg/dL (8.4-10.2); Carbon Dioxide 22 mmol/L (22-30); Chloride 106 mmol/L (98-107); Estimated Glomerular Filt Rate 54; Glucose 150 mg/dL (65-110); Potassium 3.8 mmol/L (3.4-5.0); Sodium 137 mmol/L (137-145)
[2022-02-18 00:24] LABS: Anisocytosis 1+ (NORMAL); Macrocytosis 1+ (NORMAL); Ovalocytes 1+ (NORMAL); Platelet Estimate Adequate (Adequate)
[2022-02-18 00:26] LABS: Schistocytes None Seen (NORMAL)
[2022-02-18 00:28] LABS: INR 1.4; Prothrombin Time 16.8 Seconds (11.1-14.7)
[2022-02-18 00:29] LABS: Partial Thromboplastin Time 30.6 SECONDS (22.3-36.8)
[2022-02-18 00:53] LABS: NT Pro B Type Natriuretic Pept 20000 pg/mL (5-100); Troponin I 0.056 ng/mL (0.000-0.034)
[2022-02-18] MEDS: FUROSEMIDE INJ 40 MG/4 ML VIAL IV PUSH ×3 (01:59→18:53)
[2022-02-18 02:35] LABS: SARS-CoV-2 RNA PCR Negative
--- NOTE | 2022-02-18 03:16 | ED.SOB ---
HPI - SOB/Dyspnea General Chief Complaint: Shortness of Breath/Dyspnea Stated Complaint: SOB, CP, swelling to ankle. 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 Denies using IV drugs in past year. Related Data Home Medications Medication Instructions Recorded Confirmed furosemide 40 mg tablet 40 mg PO DAILY 01/06/22 01/15/22 lisinopril 5 mg tablet 5 mg PO DAILY 01/06/22 01/15/22 magnesium oxide 400 mg (241.3 mg 400 mg PO DAILY 01/06/22 01/15/22 magnesium) tablet potassium chloride 10 mEq 10 meq PO DAILY 01/06/22 01/15/22 tablet,extended release Allergies Allergy/AdvReac Type Severity Reaction Status Date / Time Penicillins Allergy Unknown Verified 02/17/22 23:13 Review of Systems Review of Systems: CONST: No fever. HEENT: No sore throat C/V: Chest tightness RESP: Difficulty breathing GI: No abdominal pain : No dysuria. M/S: No joint pain. SKIN: No rash. NEURO: [No headache or focal numbness or weakness] PSYCH: Depression PMFSH Past Medical History Medical History Bipolar 1 disorder Congestive heart failure with left ventricular systolic dysfunction (LVSD) Polysubstance use disorder Surgical History Surgical History History of hand surgery Family History Family History Father Heart disease Hypertension Cancer Mother Unknown family medical history Social History Social History Social History: Patient has a history of alcoholism but quit approximately 1 year ago. Uses tobacco daily, uses methamphetamine frequently, denies cocaine use. Used IV drugs but has not used in the last 1 year. Surrogate medical decision maker: Amaris Herman, significant other. Code status: Do not resuscitate. Smoking packs per day: 0.5 Smoking cigarettes per day: 10.0 Years smoked: 38 Smoking pack-years: 19.00 Smoking status: Current every day smoker Second hand tobacco smoke exposure: Yes Alcohol intake: never Substance use type: marijuana, IV drugs and methamphetamine Last use: 01/15 Lack of Transportation: YES Lack of Food: Often True Current Housing: I Have Housing Concerned About Future Housing: No Difficulty Paying Gas/Electric Bills: No Difficulty Paying for Meds: YES Currently Unemployed: No Education: High School Diploma/GED Difficulty w/ Childcare or Family Care: No Spiritual care concerns: No Exam Narrative: EXAMINATION OF ORGAN SYSTEMS/BODY AREAS: Constitutional: Vital signs per nursing GENERAL: Dyspneic HEAD: Normal with no signs of head trauma. EYES: EOMI, conjunctiva normal ENT: Hearing grossly intact LUNGS: Labored respirations HEART: Tachycardic ABD: [Soft], [nontender to palpation] EXT: Normal range of motion, some lower extremity edema SKIN: [No rashes or lesions.] NEURO: [Alert and oriented x 3. No gross focal sensory or strength deficits.] PSYCH: Normal affect Course Vital Signs Vital signs: Vital Signs Temperature 97.5 F L 02/17/22 23:09 Pulse Rate 126 H 02/17/22 23:09 Respiratory Rate 22 H 02/17/22 23:09 Blood Pressure 127/97 H 02/17/22 23:09 Pulse Oximetry 97 02/17/22 23:09 Oxygen Delivery Room Air 02/17/22 23:09 Temperature 97.5 F L 02/17/22 23:09 Pulse Rate 126 H 02/17/22 23:09 Respiratory Rate 22 H 02/17/22 23:09 Blood Pressure 127/97 H 02/17/22 23:09 Pulse Oximetry 97 02/17/22 23:09 Oxygen Delivery Room Air 02/17/22 23:09 MDM - SOB/Dyspnea MDM Narrative Medical decision making narrative: 38-year-old sarah
[2022-02-18] MEDS: ALBUTEROL SULFATE (*SP) AEROSOL 1 PUFF 2 PUFF INHALATION (03:26)
--- NOTE | 2022-02-18 05:51 | PM.IMHP ---
H&P: HPI History of Present Illness Date/Time: 02/18/22 05:51 Chief Complaint: Worsening shortness of breaths. 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 The patient was in his usual state of health until several days ago; he developed worsening shortness of breath after he had stopped taking his medications; the week prior after getting into an argument with his girlfriend.? Denies using IV drugs in past year. Vital signs include a temperature of 97.5?, pulse was 126, respiration 22, blood pressure 127/97, pulse ox 97% on room air. On admission is CBC revealed a WBC of 8.6, hemoglobin 11.6, hematocrit 39.8 and a platelet count of 306. Coagulation panel shows PT 16.8, INR 1.4, APTT 30.6. His chemistry shows a sodium of 137, potassium 3.8, chloride 106, bicarb bone 822, BUN 30, creatinine 1.4, blood glucose 150. Troponin is elevated [place] 0.[address] [place] [address]. Total protein 8 and albumin 4. Chest x-ray shows globular cardiac silhouette enlargement which may be due to cardiomyopathy and/or pericardial effusion. EKG shows sinus tachycardia, possible anterior myocardial infarction Q-wave in V3 V4. [facility] Past Medical History Medical History Bipolar 1 disorder Congestive heart failure with left ventricular systolic dysfunction (LVSD) Polysubstance use disorder Surgical History Surgical History History of hand surgery Family History Family History Father Heart disease Hypertension Cancer Mother Unknown family medical history Social History Social History Social History: Patient has a history of alcoholism but quit approximately 1 year ago. Uses tobacco daily, uses methamphetamine frequently, denies cocaine use. Used IV drugs but has not used in the last 1 year. Surrogate medical decision maker: Amaris Virgil, significant other. Code status: Do not resuscitate. Smoking packs per day: 0.5 Smoking cigarettes per day: 10.0 Years smoked: 38 Smoking pack-years: 19.00 Smoking status: Current every day smoker Second hand tobacco smoke exposure: Yes Alcohol intake: never Substance use type: marijuana, IV drugs and methamphetamine Last use: 01/15 Lack of Transportation: YES Lack of Food: Often True Current Housing: I Have Housing Concerned About Future Housing: No Difficulty Paying Gas/Electric Bills: No Difficulty Paying for Meds: YES Currently Unemployed: No Education: High School Diploma/GED Difficulty w/ Childcare or Family Care: No Spiritual care concerns: No Meds Home Medications and Allergies Home Medications Medication Instructions Recorded Confirmed Type furosemide 40 mg tablet 40 mg PO DAILY 01/06/22 01/15/22 History lisinopril 5 mg tablet 5 mg PO DAILY 01/06/22 01/15/22 History magnesium oxide 400 mg (241.3 mg 400 mg PO DAILY 01/06/22 01/15/22 History magnesium) tablet potassium chloride 10 mEq 10 meq PO DAILY 01/06/22 01/15/22 History tablet,extended release aspirin 81 mg tablet,delayed 81 mg PO QAM 1 month #30 tabs 01/12/22 01/15/22 Rx release atorvastatin 10 mg tablet 10 mg PO DAILY 1 month #30 tabs 01/12/22 01/15/22 Rx carvedilol 12.5 mg tablet (Coreg) 12.5 mg PO Q12HR 1 month #60 tabs 01/12/22 01/15/22 Rx hydroxyzine HCl 50 mg tablet 50 mg PO QID PRN anxiety #30 tabs 01/12/22 01/15/22 Rx Allergies Allergy/AdvReac Type Severity Reaction Status Date / Time Penicillins Allergy Unknown Verified 02/17/22 23:13 Vital Signs Vital Signs - 24 hr 02/17/22 23:09 02/18/22 03:2
--- NOTE | 2022-02-18 07:50 | ECG_ITS ---
Measurements Intervals [place] Rate: 109 P: 64 DE: 162 QRS: 15 QRSD: 122 T: 82 QT: 382 QTc: 516 Interpretive Statements SINUS TACHYCARDIA LEFT ATRIAL ENLARGEMENT [-0.15mV P WAVE IN V1/V2] POSSIBLE ANTERIOR MYOCARDIAL INFARCTION , OF INDETERMINATE AGE [30 ms Q WAVE IN V3/V4, OR R < 0.2 mV IN V4] COMPARED TO ECG 02/17/2022 23:15:10 NO SIGNIFICANT CHANGES Electronically Signed On 02-18-2022 18:04:02 SPA THERAPIST by Ines Gandhi M.D.
[2022-02-18 09:12] LABS: Influenza A QL RT-PCR Negative (Negative); Influenza B QL RT-PCR Negative (Negative); RSV RNA, RT-PCR Negative (Negative)
[2022-02-18] MEDS: ENOXAPARIN 40 MG/0.4 ML SYRINGE SUB-Q (10:37)
--- NOTE | 2022-02-18 10:49 | ADMGEN ---
This patient, Enrique Nichols, was admitted to Virtual Bed IMU-1. Patient/family oriented to hospital policies and general routines including ID bracelet, bed and alarms, visiting hours, pain management, procedures, bathroom and other care routines, personal items, smoking policy, room service/diet, and visiting hours. Information on how to activate the Rapid Response Team has been discussed. Patient/Family are encouraged to report perceived risks to care and to ask questions if they do not understand what they are told or what they should do. Admission performed in ED at bedside.
[2022-02-18 11:42] LABS: Basophils Absolute Auto 0.1 K/mm3 (0.0-0.1); Basophils Percent Auto 1.2 % (0.2-1.2); Eosinophils Absolute Auto 0.2 K/mm3 (0-0.3); Hematocrit 49.1 % (42.0-52.0); Hemoglobin 14.5 g/dL (14.0-18.0); Immature Granulocyte Absolute 0.05 K/mm3 (0.00-0.031); Immature Granulocyte Percent A 0.6 % (0-0.5); Lymphocytes Absolute Auto 2.63 K/mm3 (0.9-3.2); Lymphocytes Percent Auto 31.2 % (18.3-44.2); Mean Corpuscular HGB Conc 29.5 g/dl (32-36); Mean Corpuscular Hemoglobin 22.5 pg (26-34); Mean Corpuscular Volume 76.1 fl (80-100); Monocytes Absolute Auto 1.2 K/mm3 (0.1-0.6); Monocytes Percent Auto 14.1 % (2.6-8.5); Neutrophils Absolute Auto 4.3 K/mm3 (1.3-6.7); Neutrophils Percent Auto 50.9 % (45.5-73.1); Nucleated Red Blood Cells Perc 0.4 % (0.0-0.2); Platelet Count Result 343 k/mm3 (150-375); Red Blood Count 6.45 M/mm3 (4.6-6.20); Red Cell Distribution Width 19.6 % (11.5-14.5); White Blood Count 8.4 K/mm3 (4.5-10.0)
[2022-02-18 11:52] LABS: Alanine Aminotransferase 88 U/L (6-50); Albumin Level 4.4 g/dL (3.5-5.1); Alkaline Phosphatase 222 U/L (38-126); Anion Gap 8 mmol/L (8-16); Aspartate Amino Transferase 117 U/L (17-59); Bilirubin,Total 0.6 mg/dL (0.2-1.3); Blood Urea Nitrogen 33 mg/dL (9-20); Calcium 8.7 mg/dL (8.4-10.2); Carbon Dioxide 32 mmol/L (22-30); Chloride 95 mmol/L (98-107); Estimated CRCL calculation 72 ml/min; Estimated Glomerular Filt Rate 59; Glucose 81 mg/dL (65-110); Potassium 3.7 mmol/L (3.4-5.0); Sodium 135 mmol/L (137-145)
[2022-02-18 12:04] LABS: Large Platelets Present; Platelet Estimate Adequate (Adequate)
[2022-02-18 12:05] LABS: Schistocytes None Seen (NORMAL)
[2022-02-18 12:07] LABS: Troponin I 0.054 ng/mL (0.000-0.034)
--- NOTE | 2022-02-18 12:29 | PC.NURSE ---
hospitalist paged to report critical lab result
--- NOTE | 2022-02-18 13:10 | PC.NURSE ---
hospitalist paged again to report abnormal lab
--- NOTE | 2022-02-18 16:39 | PM.CNCAR ---
Assessment and Plan Assessment and plan (1) Acute on chronic systolic congestive heart failure: Code(s): I50.23 - Acute on chronic systolic (congestive) heart failure Status: Acute (2) Noncompliance w/medication treatment due to intermit use of medication: Code(s): Z91.14 - Patient's other noncompliance with medication regimen Status: Acute (3) Hypertension: Code(s): I10 - Essential (primary) hypertension Status: Acute (4) Dyslipidemia: Code(s): E78.5 - Hyperlipidemia, unspecified Status: Acute Plan Continue with IV diuresis. Will restart his home ASA, statin, Jardiance, Entresto. Restart his home Coreg once he's euvolemic. History of Present Illness History of Present Illness Consult date/time: 02/18/22 16:39 Requesting physician: Danielle Alexander DO Consult reason: congestive heart failure Reason For Visit: CHF Exacerbation Narrative: Patient is a 46-year-old male with history of tobacco, methamphetamine and alcohol abuse, heart failure with reduced LVEF <15%, noncompliance who was recently here last month for heart failure exacerbation. Patient presented with shortness of breath. He had stopped taking his medications for the past week after getting into an argument with his girlfriend. Patient admitted for decompensated heart failure. Patient reports that he feels a little better this morning, but still continues to have shortness of breath. No chest pain. He was supposed to see us in clinic today for follow-up. Review of Systems Review of Systems: 12-point ROS obtained. Negative, unless stated in HPI. [facility] Past Medical History Medical History Bipolar 1 disorder Congestive heart failure with left ventricular systolic dysfunction (LVSD) Polysubstance use disorder Surgical History Surgical History History of hand surgery Family History Family History Father Heart disease Hypertension Cancer Mother Unknown family medical history Social History Social History Social History: Patient has a history of alcoholism but quit approximately 1 year ago. Uses tobacco daily, uses methamphetamine frequently, denies cocaine use. Used IV drugs but has not used in the last 1 year. Surrogate medical decision maker: Amaris Herman, significant other. Code status: Do not resuscitate. Smoking packs per day: 0.5 Smoking cigarettes per day: 10.0 Years smoked: 38 Smoking pack-years: 19.00 Smoking status: Current some day smoker Tobacco type: cigarettes Second hand tobacco smoke exposure: Yes Alcohol intake: former Substance use: current Substance use type: marijuana and methamphetamine Last use: marijuana 02/17, Meth 02/15(smoke) Lack of Transportation: No Lack of Food: Never True Current Housing: I Have Housing Concerned About Future Housing: No Difficulty Paying Gas/Electric Bills: No Difficulty Paying for Meds: No Currently Unemployed: No Education: Grade School Difficulty w/ Childcare or Family Care: No Spiritual care concerns: No Meds Home Medications and Allergies Home Medications Medication Instructions Recorded Confirmed Type furosemide 40 mg tablet 40 mg PO DAILY 01/06/22 02/18/22 History magnesium oxide 400 mg (241.3 mg 400 mg PO DAILY 01/06/22 02/18/22 History magnesium) tablet potassium chloride 10 mEq 10 meq PO DAILY 01/06/22 02/18/22 History tablet,extended release aspirin 81 mg tablet,delayed 81 mg PO QAM 1 month #30 tabs 01/12/22 02/18/22 Rx release atorvastatin 10 mg tablet 10 mg PO DAILY 1 month #30 tabs 01/12/22 02/18/22 Rx carvedilol 12.5 mg tablet (Coreg) 12.5 mg PO Q12HR 1 month #60 tabs 01/12/22 02/18/22 Rx hydroxyzine HCl 50 mg tablet 50 mg PO QID PRN anxiety #30 tabs
[2022-02-18] MEDS: SACUBITRIL/VALSARTAN 24-26 MG TABLET 1 TAB PO (21:35)
[2022-02-19] VITALS (18 sets, daily range): BP systolic 102–123; BP diastolic 68–90; PULSE 84–130; RESP 16–26; TEMP 36.4–37.2; O2SAT 87–100; BMI 33.4
[2022-02-19 05:04] LABS: Hematocrit 48.7 % (42.0-52.0); Hemoglobin 14.5 g/dL (14.0-18.0); Mean Corpuscular HGB Conc 29.8 g/dl (32-36); Mean Corpuscular Hemoglobin 22.1 pg (26-34); Mean Corpuscular Volume 74.4 fl (80-100); Mean Platelet Volume 9.1 fl (7.4-10.4); Platelet Count Result 356 k/mm3 (150-375); Red Blood Count 6.55 M/mm3 (4.6-6.20); Red Cell Distribution Width 19.2 % (11.5-14.5)
[2022-02-19 05:11] LABS: Alanine Aminotransferase 105 U/L (6-50); Albumin Level 3.9 g/dL (3.5-5.1); Alkaline Phosphatase 221 U/L (38-126); Anion Gap 7 mmol/L (8-16); Aspartate Amino Transferase 118 U/L (17-59); Bilirubin,Total 0.7 mg/dL (0.2-1.3); Blood Urea Nitrogen 33 mg/dL (9-20); Calcium 8.4 mg/dL (8.4-10.2); Carbon Dioxide 31 mmol/L (22-30); Chloride 96 mmol/L (98-107); Estimated CRCL calculation 72 ml/min; Estimated Glomerular Filt Rate 59; Glucose 117 mg/dL (65-110); Potassium 3.2 mmol/L (3.4-5.0); Sodium 134 mmol/L (137-145)
[2022-02-19 05:57] LABS: Anisocytosis 1+ (NORMAL); Band Neutrophils Percent 1 % (0-6); Eosinophils Percent Manual 1 % (0-4); Macrocytosis 1+ (NORMAL); Microcytosis 1+ (NORMAL); Monocytes Percent Manual 1 % (3-9); Neutrophils Percent Manual 69 % (46-73); Platelet Estimate Adequate (Adequate); Schistocytes None Seen (NORMAL); Total Cells Counted 100
[2022-02-19 05:58] LABS: Acanthocytes 1+ (NORMAL); Atypical Lymphocytes Present; Rouleaux 1+ (NORMAL)
[2022-02-19 05:59] LABS: Ovalocytes 1+ (NORMAL); Poikilocytosis 1+ (NORMAL)
--- NOTE | 2022-02-19 08:08 | ADMGEN ---
This patient, Enrique Nichols, was admitted to IMU Room 205-01 on 02/19/22 at 0550. Patient/family oriented to hospital policies and general routines including ID bracelet, bed and alarms, visiting hours, pain management, procedures, bathroom and other care routines, personal items, smoking policy, room service/diet, and visiting hours. Information on how to activate the Rapid Response Team has been discussed. Patient/Family are encouraged to report perceived risks to care and to ask questions if they do not understand what they are told or what they should do.
[2022-02-19] MEDS: POTASSIUM CHLORIDE 10 MEQ TABLET.ER PO (08:32)
[2022-02-19] MEDS: FUROSEMIDE INJ 40 MG/4 ML VIAL IV PUSH ×2 (08:34→17:31)
[2022-02-19] MEDS: ASPIRIN 81 MG ENTERIC TABLET PO (08:35)
[2022-02-19] MEDS: ATORVASTATIN 10 MG TABLET PO (08:35)
[2022-02-19] MEDS: SACUBITRIL/VALSARTAN 24-26 MG TABLET 1 TAB PO ×2 (08:35→21:14)
[2022-02-19] MEDS: ENOXAPARIN 40 MG/0.4 ML SYRINGE SUB-Q (08:35)
[2022-02-19] MEDS: MAGNESIUM OXIDE 400 MG TABLET PO (08:35)
[2022-02-19] MEDS: EMPAGLIFLOZIN 10 MG TABLET PO (08:35)
--- NOTE | 2022-02-19 10:37 | PM.PNCARD ---
Progress Note: A&P Assessment and Plan (1) Acute on chronic systolic congestive heart failure: Code(s): I50.23 - Acute on chronic systolic (congestive) heart failure Status: Acute Assessment and Plan: Continue current meds but also will add back carvedilol. Will start carvedilol at 6.25 mg p.o. b.i.d.. Also replace potassium 40 mg p.o. x1 (2) Noncompliance w/medication treatment due to intermit use of medication: Code(s): Z91.14 - Patient's other noncompliance with medication regimen Status: Acute Assessment and Plan: Encourage compliance (3) Hypertension: Code(s): I10 - Essential (primary) hypertension Status: Acute Assessment and Plan: At goal (4) Dyslipidemia: Code(s): E78.5 - Hyperlipidemia, unspecified Status: Acute Assessment and Plan: On statin Subjective Date/time seen: 02/19/22 10:37 Interval history: Patient is a 46-year-old male with history of tobacco, methamphetamine and alcohol abuse, heart failure with reduced LVEF <15%, noncompliance who was recently here last month for heart failure exacerbation. Date of service 02/19/2022: Still feels short of breath. No chest pain. Review of Systems Review of Systems: All systems reviewed & are unremarkable except as noted in HPI and below Constitutional: Constitutional: Denies body ache(s) Eyes: Eyes: Denies blurry vision ENT: Reports Normal hearing present Cardiovascular: Cardiovascular: Denies chest pain and Denies diaphoresis Respiratory: Respiratory: Reports dyspnea Gastrointestinal: Gastrointestinal: Denies abdominal pain Genitourinary: Genitourinary: Denies hematuria Integumentary/Breasts: Skin/Breast: Denies skin pain Neurologic: Denies headache(s) Psychiatric: Psychiatric: Denies anxiety Endocrine: Endocrine: Denies excessive sweating Hematologic/Lymphatic: Hematologic/Lymphatic: Denies easy bleeding Exam Const: General: no acute distress HENMT: Mouth: Yes moist mucous membranes Eyes: General: appearance normal, both eyes and all related structures Sclera: sclerae normal Neck: Neck: supple Resp: Effort & Inspection: normal respiratory effort Auscultation: diminished lung sounds Cardio: Rate: tachycardic Rhythm: regular rhythm Skin: General skin exam: normal color Neuro: Speech: normal speech Motor exam (neuro): 5/5 motor strength present throughout Extrem: General: normal to inspection Psych: Mental Status: mental status grossly normal Affect: normal affect Objective Data Vital Signs Vital Signs: Vital Signs - 24 hr 02/18/22 11:03 02/18/22 11:15 02/18/22 13:00 Temperature Pulse Rate 107 H 105 H 105 H Respiratory Rate 20 21 H 23 H Blood Pressure Pulse Oximetry 98 95 100 Oxygen Delivery Oxygen Flow Rate 02/18/22 13:28 02/18/22 13:30 02/18/22 13:49 Temperature Pulse Rate 102 H 109 H 109 H Respiratory Rate 27 H 30 H 23 H Blood Pressure 136/100 H Pulse Oximetry 97 100 100 Oxygen Delivery Oxygen Flow Rate 02/18/22 14:15 02/18/22 14:30 02/18/22 15:02 Temperature Pulse Rate 109 H 112 H 113 H Respiratory Rate 26 H 25 H 29 H Blood Pressure Pulse Oximetry Oxygen Delivery Oxygen Flow Rate 02/18/22 15:09 02/18/22 15:10 02/18/22 15:35 Temperature Pulse Rate 111 H 112 H 104 H Respiratory Rate 16 20 13 Blood Pressure 135/112 H Pulse Oximetry Oxygen Delivery Oxygen Flow Rate 02/18/22 15:45 02/18/22 16:08 02/18/22 16:15 Temperature Pulse Rate 111 H 113 H 110 H Respiratory Rate 20 12 14 Blood Pressure Pulse Oximetry Oxygen Delivery Oxygen Flow Rate 02/18/22 16:17 02/18/22 18:50 02/18/22 21:40 Temperature Pulse Rate 111 H 115 H 110 H Respiratory Rate 19 30 H 26 H Blood Pressure 139/105 H 149/100 H 115/83 Pulse Oximetry 99 100 Oxygen Delivery Oxygen Flow Rate 02/18/22 18:51 02/18/22 22:00 02/19/22 01:49
[2022-02-19] MEDS: hydrOXYzine HCL 25 MG TABLET 50 MG PO (12:12)
[2022-02-19] MEDS: POTASSIUM CHLORIDE 20 MEQ TABLET 40 MEQ PO (12:12)
--- NOTE | 2022-02-19 18:23 | PM.IMPN ---
Progress Note: A&P Assessment and Plan (1) Congestive heart failure with left ventricular systolic dysfunction (LVSD): Code(s): I50.20 - Unspecified systolic (congestive) heart failure Status: Acute Assessment and Plan: Patient is symptomatic with shortness of breath and lower extremity swelling. BNP is elevated. Start Lasix 40 mg IV q.12 while monitoring his chemistries closely. Water restriction 1.5 L daily with. Patient counseled regarding the importance of both hands. EF less than 15% making this patient a candidate for ICD which is refuses. He does not want to be fitted for LifeVest either. (2) Methamphetamine abuse: Code(s): F15.10 - Other stimulant abuse, uncomplicated Status: Acute Assessment and Plan: Remote. (3) Noncompliance w/medication treatment due to intermit use of medication: Code(s): Z91.14 - Patient's other noncompliance with medication regimen Status: Acute Assessment and Plan: Patient counseled regarding the importance of compliance (4) Hypertension: Code(s): I10 - Essential (primary) hypertension Status: Acute Assessment and Plan: Resume home medication (5) Dyslipidemia: Code(s): E78.5 - Hyperlipidemia, unspecified Status: Acute Assessment and Plan: Resume home medication Plan Patient admitted under inpatient service Patient will be a full code DVT prophylaxis with Lovenox Subjective Date/time seen: 02/19/22 18:23 Patient is feeling slightly better. Mild sob. No chest pain. No abdominal pain, no nausea. Mood stable. Review of Systems Review of Systems: All systems reviewed & are unremarkable except as noted in HPI and below (the history and physical exam.) Exam Narrative: GENERAL: The patient is alert and oriented, in no apparent distress. He is pleasant and conversant in full sentences. HEENT: Pupils are equally round and reactive to light. Extraoccular muscles are intact. Oral mucous membranes are moist without lesions. NECK: The patient has no noted JVD. No cervical palpable lymphadenopathy. CHEST/LUNGS: Lungs are clear bilaterally without rhonchi, rales, or wheezes. There is no subcutaneous air appreciated. There is no tenderness to the chest wall. HEART: The patient has a regular rate and rhythm. No murmurs, rubs, or gallops are appreciated. Distal pulses are 2+. No carotid bruits appreciated. ABDOMEN: The patient?s abdomen is soft, nontender, and nondistended. Bowel sounds are positive. No organomegaly is appreciated. No masses are appreciated. There are no peritoneal signs. There is no Enriquez?s sign. EXTREMITIES: The patient has no peripheral edema. There is no focal long bone tenderness or deformity. SKIN: The patient?s skin is warm and dry, without rashes or lesions. PSYCHIATRIC: The patient has normal mental status and has an appropriate affect. NEUROLOGIC: The patient has 5/5 strength to the upper and lower extremities bilaterally. Sensation is intact throughout. Gait is within normal limits. Deep tendon reflexes are 2+ in all four extremities. There are no gross deficits to the cranial nerves. Objective Data Vital Signs Vital Signs: Vital Signs - 24 hr 02/18/22 18:50 02/18/22 21:40 02/18/22 18:51 Temperature Pulse Rate 115 H 110 H 114 H Respiratory Rate 30 H 26 H 31 H Blood Pressure 149/100 H 115/83 149/100 H Pulse Oximetry 99 100 100 Oxygen Delivery Oxygen Flow Rate 02/18/22 22:00 02/19/22 01:49 02/19/22 02:25 Temperature Pulse Rate 111 H 99 Respiratory Rate 23 H 24 H Blood Pressure 115/87 122/89 Pulse Oximetry 97 98 97 Oxygen Delivery Nasal Cannula Oxygen Flow Rate 2 02/19/22 02:22 02/19/22 03:49 02/19/22 05:29 Temperature Pulse Rate 101 H 100 Respiratory Rate 24 H 26 H Blood Pressure 115/90 103/74 Pulse Oximetry 87 L 100 97 Oxygen Delivery Room Air Oxygen Flow Rate 02/19/22 05:55 02/19/22 05:50 02/19/22 05:55 Temperature 37.2
[2022-02-19] MEDS: carvediloL 6.25 MG TABLET PO (21:14)
[2022-02-20] VITALS (17 sets, daily range): BP systolic 96–107; BP diastolic 47–93; PULSE 86–103; RESP 18–22; TEMP 36.4–36.8; O2SAT 92–99
[2022-02-20 06:39] LABS: Potassium 3.5 mmol/L (3.4-5.0)
[2022-02-20 06:42] LABS: Alanine Aminotransferase 106 U/L (6-50); Albumin Level 3.6 g/dL (3.5-5.1); Alkaline Phosphatase 206 U/L (38-126); Anion Gap 8 mmol/L (8-16); Aspartate Amino Transferase 91 U/L (17-59); Bilirubin,Total 0.7 mg/dL (0.2-1.3); Blood Urea Nitrogen 33 mg/dL (9-20); Calcium 8.1 mg/dL (8.4-10.2); Carbon Dioxide 30 mmol/L (22-30); Chloride 97 mmol/L (98-107); Estimated CRCL calculation 64 ml/min; Estimated Glomerular Filt Rate 50; Glucose 116 mg/dL (65-110); Sodium 135 mmol/L (137-145)
[2022-02-20] MEDS: ENOXAPARIN 40 MG/0.4 ML SYRINGE SUB-Q (08:06)
[2022-02-20] MEDS: ATORVASTATIN 10 MG TABLET PO (08:07)
[2022-02-20] MEDS: POTASSIUM CHLORIDE 10 MEQ TABLET.ER PO (08:07)
[2022-02-20] MEDS: carvediloL 6.25 MG TABLET PO ×2 (08:08→21:14)
[2022-02-20] MEDS: FUROSEMIDE INJ 40 MG/4 ML VIAL IV PUSH (08:09)
[2022-02-20] MEDS: EMPAGLIFLOZIN 10 MG TABLET PO (08:09)
[2022-02-20] MEDS: SACUBITRIL/VALSARTAN 24-26 MG TABLET 1 TAB PO ×2 (08:10→21:14)
[2022-02-20] MEDS: ASPIRIN 81 MG ENTERIC TABLET PO (08:26)
[2022-02-20] MEDS: POTASSIUM CHLORIDE 20 MEQ TABLET PO (08:26)
--- NOTE | 2022-02-20 08:35 | PM.PNCARD ---
Progress Note: A&P Assessment and Plan (1) Noncompliance w/medication treatment due to intermit use of medication: Code(s): Z91.14 - Patient's other noncompliance with medication regimen Status: Acute (2) CHF (congestive heart failure): Code(s): I50.9 - Heart failure, unspecified Status: Acute Plan 46-year-old man with heart failure with reduced ejection fraction. Noncompliant with medical treatment and came in the hospital with a CHF decompensation. On exam this morning he seems to be essentially euvolemic I will discontinue his IV furosemide, go back to p.o. furosemide and try adding spironolactone to the regimen to ensure that he is on guideline directed medical therapy. Given his low ejection fraction and noncompliance to treatment prognosis seems poor in my opinion Mychal Quintero MD [facility] Subjective Date/time seen: Date of service: 02/20/22 08:35 Interval history: This is a 46-year-old man with severe cardiomyopathy admitted with CHF decompensation primarily related to medical noncompliance This morning states that he still feels short of breath although was lay flat in bed with some oxygen in place when I came in the room to see him. Also complaining of chronic pain in his feet Exam Const: Other: Obese white male appearing a bit older than his stated age HENMT: Mouth: Yes moist mucous membranes Eyes: Sclera: sclerae normal Neck: Neck: supple Other: No obvious JVD exam for that is difficult Resp: Effort & Inspection: normal respiratory effort Other: A few central rhonchi that clear with coughing no significant pulmonary rales at this time Cardio: Rate: regular rate Rhythm: regular rhythm Other: S3 gallop is audible no murmur GI: GI Palp: Yes Soft to palpation Auscultation: normal bowel sounds Skin: General skin exam: normal color Neuro: Other: Alert and oriented x3 Extrem: Other: No pitting edema at this time Objective Data Vital Signs Vital Signs: Vital Signs - 24 hr 02/19/22 12:00 02/19/22 12:00 02/19/22 16:00 Temperature 36.7 C Pulse Rate 84 Respiratory Rate 18 Blood Pressure 108/68 Pulse Oximetry 95 95 95 Oxygen Delivery Nasal Cannula Nasal Cannula Oxygen Flow Rate 1 1 02/19/22 16:00 02/19/22 10:00 02/19/22 12:00 Temperature 37.0 C Pulse Rate 96 101 H 130 H Respiratory Rate 16 Blood Pressure 102/77 Pulse Oximetry 98 Oxygen Delivery Oxygen Flow Rate 02/19/22 14:00 02/19/22 16:00 02/19/22 18:00 Temperature Pulse Rate 100 103 H 103 H Respiratory Rate Blood Pressure Pulse Oximetry Oxygen Delivery Oxygen Flow Rate 02/19/22 20:00 02/19/22 21:14 02/19/22 20:00 Temperature 36.8 C Pulse Rate 95 106 H 102 H Respiratory Rate 18 Blood Pressure 103/75 Pulse Oximetry 97 Oxygen Delivery Oxygen Flow Rate 02/19/22 20:00 02/19/22 23:59 02/19/22 22:00 Temperature 36.7 C Pulse Rate 94 95 Respiratory Rate 20 Blood Pressure 102/69 Pulse Oximetry 97 99 Oxygen Delivery Nasal Cannula Oxygen Flow Rate 1 02/20/22 00:00 02/20/22 00:00 02/20/22 02:00 Temperature Pulse Rate 97 87 Respiratory Rate Blood Pressure Pulse Oximetry 99 Oxygen Delivery Nasal Cannula Oxygen Flow Rate 1 02/20/22 04:00 02/20/22 04:00 02/20/22 04:00 Temperature 36.4 C Pulse Rate 89 86 Respiratory Rate 20 Blood Pressure 106/78 Pulse Oximetry 97 96 Oxygen Delivery Nasal Cannula Oxygen Flow Rate 1 02/20/22 06:00 02/20/22 07:59 02/20/22 08:08 Temperature 36.8 C Pulse Rate 89 92 97 Respiratory Rate 18 Blood Pressure 107/93 H Pulse Oximetry 96 Oxygen Delivery Oxygen Flow Rate Intake/Output Intake/Output: Intake & Output 02/17/22 02/18/22 02/19/22 02/20/22 23:59 23:59 23:59 23:59 Intake Total 960 500 Output Total 5200 4475 450 Balance -5200 -3515 50 Meds/Results Medications: Active Medications Generic Name D
--- NOTE | 2022-02-20 09:00 | ECG_ITS ---
Measurements Intervals [place] Rate: 93 P: 47 [place]: 182 QRS: 0 QRSD: 110 T: 149 QT: 404 QTc: 505 Interpretive Statements SINUS RHYTHM LEFT ATRIAL ENLARGEMENT [-0.15mV P WAVE IN V1/V2] INCOMPLETE LEFT BUNDLE BRANCH BLOCK ABNORMAL ECG COMPARED TO ECG 02/18/2022 14:16:26 SINUS RHYTHM NOW PRESENT Electronically Signed On 02-20-2022 20:00:40 NECK PINNER by Mychal Quintero M.D.
[2022-02-20] MEDS: SPIRONOLACTONE 25 MG TABLET PO (10:00)
--- NOTE | 2022-02-20 18:41 | PM.IMPN ---
Progress Note: A&P Assessment and Plan (1) Congestive heart failure with left ventricular systolic dysfunction (LVSD): Code(s): I50.20 - Unspecified systolic (congestive) heart failure Status: Acute Assessment and Plan: Patient is clinically improving. BNP is elevated. Switch from Lasix 40 mg IV q.12 to p.o. while monitoring his chemistries closely. Water restriction 1.5 L daily with. Patient counseled regarding the importance of compliance. EF less than 15% making this patient a candidate for ICD which is refuses. He does not want to be fitted for LifeVest either. (2) Methamphetamine abuse: Code(s): F15.10 - Other stimulant abuse, uncomplicated Status: Acute Assessment and Plan: Remote. No active concern at this moment (3) Noncompliance w/medication treatment due to intermit use of medication: Code(s): Z91.14 - Patient's other noncompliance with medication regimen Status: Acute Assessment and Plan: Patient counseled regarding the importance of compliance (4) Hypertension: Code(s): I10 - Essential (primary) hypertension Status: Acute Assessment and Plan: Resume home medication. BP on the soft side 96/47-1 0 . (5) Dyslipidemia: Code(s): E78.5 - Hyperlipidemia, unspecified Status: Acute Assessment and Plan: Continue home medication Plan Continue clinical monitoring and discharge in a.m. if stable. Time Spent With Patient Time with patient: 15 - 25 minutes Subjective Date/time seen: 02/20/22 10:41 Interval history: Narrative 46-year-old patient with heart failure with reduced ejection fraction refusing ICD placement and noncompliant with medical therapy admitted with a CHF decompensation secondary to noncompliance. S: Patient was seen examined at the bedside. Free status is improving patient appears euvolemic. He is able to lay flat. No complaints. Review of Systems Review of Systems: All systems reviewed & are unremarkable except as noted in HPI and below (the history and physical exam.) Constitutional: Constitutional: Denies body ache(s) Eyes: Eyes: Denies blurry vision ENT: Reports Normal hearing present Cardiovascular: Cardiovascular: Denies chest pain and Denies diaphoresis Respiratory: Respiratory: Reports dyspnea Gastrointestinal: Gastrointestinal: Denies abdominal pain Genitourinary: Genitourinary: Denies hematuria Integumentary/Breasts: Skin/Breast: Denies skin pain Neurologic: Denies headache(s) Psychiatric: Psychiatric: Denies anxiety Endocrine: Endocrine: Denies excessive sweating Hematologic/Lymphatic: Hematologic/Lymphatic: Denies easy bleeding Exam Narrative: GENERAL: The patient is alert and oriented, in no apparent distress. He is pleasant and conversant in full sentences. HEENT: Pupils are equally round and reactive to light. Extraoccular muscles are intact. Oral mucous membranes are moist without lesions. NECK: The patient has no noted JVD. No cervical palpable lymphadenopathy. CHEST/LUNGS: Lungs are clear bilaterally without rhonchi, rales, or wheezes. There is no subcutaneous air appreciated. There is no tenderness to the chest wall. HEART: The patient has a regular rate and rhythm. No murmurs, rubs, or gallops are appreciated. Distal pulses are 2+. No carotid bruits appreciated. ABDOMEN: The patient?s abdomen is soft, nontender, and nondistended. Bowel sounds are positive. No organomegaly is appreciated. No masses are appreciated. There are no peritoneal signs. There is no Enriquez?s sign. EXTREMITIES: The patient has no peripheral edema. There is no focal long bone tenderness or deformity. SKIN: The patient?s skin is warm and dry, without rashes or lesions. PSYCHIATRIC: The patient has normal mental status and has an appropriate affect. NEUROLOGIC: The patient has 5/5 strength to the upper and lower extremities bilaterally. Sensation is intact throughout. Gait is within normal limits
[2022-02-21] VITALS (16 sets, daily range): BP systolic 99–136; BP diastolic 65–88; PULSE 81–115; RESP 16–20; TEMP 36.1–36.7; O2SAT 95–100
--- NOTE | 2022-02-21 08:24 | PM.IMPN ---
Progress Note: A&P Assessment and Plan (1) Congestive heart failure with left ventricular systolic dysfunction (LVSD): Code(s): I50.20 - Unspecified systolic (congestive) heart failure Status: Acute Assessment and Plan: Patient is clinically improving. he is diuresing adequately, producing 5 L of urine overnight. BNP is elevated. Continue Lasix 40 mg p.o. q.12 hours. while monitoring his chemistries closely. Water restriction 1.5 L daily.. Patient counseled regarding the importance of compliance. EF less than 15% making this patient a candidate for ICD which is refuses. He does not want to be fitted for LifeVest either. (2) Methamphetamine abuse: Code(s): F15.10 - Other stimulant abuse, uncomplicated Status: Acute Assessment and Plan: Remote. No active concern at this moment (3) Noncompliance w/medication treatment due to intermit use of medication: Code(s): Z91.14 - Patient's other noncompliance with medication regimen Status: Acute Assessment and Plan: Patient counseled regarding the importance of compliance (4) Hypertension: Code(s): I10 - Essential (primary) hypertension Status: Acute Assessment and Plan: Resume home medication. BP on the soft side 99/75-109/76. (5) Dyslipidemia: Code(s): E78.5 - Hyperlipidemia, unspecified Status: Acute Assessment and Plan: Continue home medication Plan Continue clinical monitoring and discharge in a.m. if stable. Time Spent With Patient Time with patient: 15 - 25 minutes Subjective Date/time seen: 02/21/22 08:24 Interval history: Patient was seen and examined at the bedside. He is diuresing well. He made over 5 L of urine overnight. He did not have any active complaints. He looks comfortable. Review of Systems Review of Systems: All systems reviewed & are unremarkable except as noted in HPI and below (the history and physical exam.) Constitutional: Constitutional: Denies body ache(s) Eyes: Eyes: Denies blurry vision ENT: Reports Normal hearing present Cardiovascular: Cardiovascular: Denies chest pain and Denies diaphoresis Respiratory: Respiratory: Reports dyspnea Gastrointestinal: Gastrointestinal: Denies abdominal pain Genitourinary: Genitourinary: Denies hematuria Integumentary/Breasts: Skin/Breast: Denies skin pain Neurologic: Denies headache(s) Psychiatric: Psychiatric: Denies anxiety Endocrine: Endocrine: Denies excessive sweating Hematologic/Lymphatic: Hematologic/Lymphatic: Denies easy bleeding Exam Narrative: GENERAL: The patient is alert and oriented, in no apparent distress. He is pleasant and conversant in full sentences. HEENT: Pupils are equally round and reactive to light. Extraoccular muscles are intact. Oral mucous membranes are moist without lesions. NECK: The patient has no noted JVD. No cervical palpable lymphadenopathy. CHEST/LUNGS: Lungs are clear bilaterally without rhonchi, rales, or wheezes. There is no subcutaneous air appreciated. There is no tenderness to the chest wall. HEART: The patient has a regular rate and rhythm. No murmurs, rubs, or gallops are appreciated. Distal pulses are 2+. No carotid bruits appreciated. ABDOMEN: The patient?s abdomen is soft, nontender, and nondistended. Bowel sounds are positive. No organomegaly is appreciated. No masses are appreciated. There are no peritoneal signs. There is no Enriquez?s sign. EXTREMITIES: The patient has no peripheral edema. There is no focal long bone tenderness or deformity. SKIN: The patient?s skin is warm and dry, without rashes or lesions. PSYCHIATRIC: The patient has normal mental status and has an appropriate affect. NEUROLOGIC: The patient has 5/5 strength to the upper and lower extremities bilaterally. Sensation is intact throughout. Gait is within normal limits. Deep tendon reflexes are 2+ in all four extremities. There are no gross deficits to the cranial nerves. Obje
[2022-02-21] MEDS: ENOXAPARIN 40 MG/0.4 ML SYRINGE SUB-Q (08:27)
[2022-02-21] MEDS: ATORVASTATIN 10 MG TABLET PO (08:28)
[2022-02-21] MEDS: FUROSEMIDE 40 MG TABLET PO (08:28)
[2022-02-21] MEDS: carvediloL 6.25 MG TABLET PO ×2 (08:28→21:02)
[2022-02-21] MEDS: SPIRONOLACTONE 25 MG TABLET PO (08:29)
[2022-02-21] MEDS: SACUBITRIL/VALSARTAN 24-26 MG TABLET 1 TAB PO ×2 (08:29→21:02)
[2022-02-21] MEDS: EMPAGLIFLOZIN 10 MG TABLET PO (08:30)
[2022-02-21] MEDS: ASPIRIN 81 MG ENTERIC TABLET PO (08:31)
--- NOTE | 2022-02-21 12:01 | PM.PNCARD ---
Progress Note: A&P Assessment and Plan (1) Congestive heart failure with left ventricular systolic dysfunction (LVSD): Code(s): I50.20 - Unspecified systolic (congestive) heart failure Status: Acute Assessment and Plan: . Fairly euvolemic. Tolerating carvedilol, Jardiance, Lasix, Entresto, spironolactone. No change in medical therapy at this time. DVT prophylaxis. Patient at high risk for . Prognosis poor particularly noncompliance and or drug abuse continues. This has been discussed with the patient multiple times in the past. Disposition per hospitalist service. (2) Noncompliance w/medication treatment due to intermit use of medication: Code(s): Z91.14 - Patient's other noncompliance with medication regimen Status: Acute Assessment and Plan: Unfortunately, he remains noncompliant. Not a candidate for ICD unfortunately given on going drug use and noncompliance. This places him at grave risk for sudden cardiac . (3) Methamphetamine abuse: Code(s): F15.10 - Other stimulant abuse, uncomplicated Status: Acute Assessment and Plan: Per primary service. Patient must remain abstinent. (4) Dyslipidemia: Code(s): E78.5 - Hyperlipidemia, unspecified Status: Acute Assessment and Plan: Atorvastatin (5) Hypertension: Code(s): I10 - Essential (primary) hypertension Status: Acute Plan 46-year-old man with heart failure with reduced ejection fraction. Noncompliant with medical treatment and came in the hospital with a CHF decompensation. On exam this morning he seems to be essentially euvolemic I will discontinue his IV furosemide, go back to p.o. furosemide and try adding spironolactone to the regimen to ensure that he is on guideline directed medical therapy. Given his low ejection fraction and noncompliance to treatment prognosis seems poor in my opinion Mychal Quintero MD [facility] Subjective Date/time seen: Date of service: 02/21/22 12:01 Interval history: Follow-up in This is 46-year-old man with severe cardiomyopathy admitted with CHF decompensation primarily related to medical noncompliance This morning Patient was sleeping, arousable but fatigued. Denies shortness of breath, chest pain. States he was tolerating medications. Kept his eyes closed lying in bed. No apparent distress. States he is eating okay. No new issues overnight. Review of Systems Review of Systems: All systems reviewed & are unremarkable except as noted in HPI and below Constitutional: Constitutional: Denies body ache(s), Denies excessive sweating and Denies headache(s) Eyes: Eyes: Denies blurry vision ENT: Reports Normal hearing present and Denies headache(s) Cardiovascular: Cardiovascular: Denies chest pain, Denies diaphoresis and Reports dyspnea Respiratory: Respiratory: Reports dyspnea Gastrointestinal: Gastrointestinal: Denies abdominal pain Genitourinary: Genitourinary: Denies hematuria Integumentary/Breasts: Skin/Breast: Denies skin pain Neurologic: Reports Normal hearing present and Denies headache(s) Psychiatric: Psychiatric: Denies anxiety Endocrine: Endocrine: Denies excessive sweating Hematologic/Lymphatic: Hematologic/Lymphatic: Denies easy bleeding Exam Const: General: no acute distress Other: Obese white male appearing older than his stated age lying in position on his right side sleepy arousable but did not open his eyes. Answered questions appropriately without eye contact. HENMT: Mouth: Yes moist mucous membranes Eyes: General: appearance normal, both eyes and all related structures Sclera: sclerae normal Neck: Neck: supple Other: No obvious JVD exam Resp: Effort & Inspection: normal respiratory effort Auscultation: diminished lung sounds Other: Diminished breath sounds no rales wheezes or rhonchi. Cardio: Rate: regular rate, bradycardic and tachycardic Rhythm: regular rhythm Other: S3 g
[2022-02-22] VITALS (9 sets, daily range): BP systolic 112–135; BP diastolic 80–84; PULSE 91–111; RESP 12–20; TEMP 35.8–36.7; O2SAT 97–99
[2022-02-22] MEDS: ATORVASTATIN 10 MG TABLET PO (08:12)
[2022-02-22] MEDS: EMPAGLIFLOZIN 10 MG TABLET PO (08:12)
[2022-02-22] MEDS: ENOXAPARIN 40 MG/0.4 ML SYRINGE SUB-Q (08:12)
[2022-02-22] MEDS: SACUBITRIL/VALSARTAN 24-26 MG TABLET 1 TAB PO (08:12)
[2022-02-22] MEDS: SPIRONOLACTONE 25 MG TABLET PO (08:12)
[2022-02-22] MEDS: carvediloL 6.25 MG TABLET PO (08:13)
[2022-02-22] MEDS: FUROSEMIDE 40 MG TABLET PO (08:13)
[2022-02-22] MEDS: ACETAMINOPHEN 325 MG TABLET 650 MG PO (09:22)
[2022-02-22 09:50] LABS: Hemoglobin 15.2 g/dL (14.0-18.0); Mean Corpuscular HGB Conc 29.2 g/dl (32-36); Mean Corpuscular Hemoglobin 22.1 pg (26-34); Mean Corpuscular Volume 75.5 fl (80-100); Mean Platelet Volume 9.6 fl (7.4-10.4); Platelet Count Result 382 k/mm3 (150-375); Red Blood Count 6.89 M/mm3 (4.6-6.20); Red Cell Distribution Width 19.9 % (11.5-14.5); White Blood Count 11.3 K/mm3 (4.5-10.0)
[2022-02-22] MEDS: ASPIRIN 81 MG ENTERIC TABLET PO (09:55)
[2022-02-22 10:00] LABS: Anion Gap 8 mmol/L (8-16); Blood Urea Nitrogen 30 mg/dL (9-20); Calcium 9.1 mg/dL (8.4-10.2); Carbon Dioxide 32 mmol/L (22-30); Chloride 95 mmol/L (98-107); Estimated CRCL calculation 64 ml/min; Estimated Glomerular Filt Rate 50; Glucose 176 mg/dL (65-110); Sodium 135 mmol/L (137-145)
--- NOTE | 2022-02-22 13:51 | PM.DS ---
DS: Admitting Diagnosis Discharge Date February 22, 2022 Admitting Diagnosis CHF exacerbation, acute on chronic systolic DS: Discharge Diagnosis Discharge Diagnosis (1) Congestive heart failure with left ventricular systolic dysfunction (LVSD): Code(s): I50.20 - Unspecified systolic (congestive) heart failure Status: Acute Assessment and Plan: Patient is clinically improving. he is diuresing adequately, producing 5 L of urine overnight. BNP is elevated. Continue cardiac medications on discharge. Follow up Cardiology (2) Methamphetamine abuse: Code(s): F15.10 - Other stimulant abuse, uncomplicated Status: Acute Assessment and Plan: Remote. No active concern at this moment (3) Noncompliance w/medication treatment due to intermit use of medication: Code(s): Z91.14 - Patient's other noncompliance with medication regimen Status: Acute Assessment and Plan: Patient counseled regarding the importance of compliance (4) Hypertension: Code(s): I10 - Essential (primary) hypertension Status: Acute Assessment and Plan: Resume home medication. BP on the soft side 99/75-109/76. (5) Dyslipidemia: Code(s): E78.5 - Hyperlipidemia, unspecified Status: Acute Assessment and Plan: Continue home medication Plan Continue clinical monitoring and discharge in a.m. if stable. DS: Summary Hospital Course Hospital Course: Patient is a 38-year-old history of systolic CHF. Patient is noncompliant to treatment. Overall poor prognosis. Recommended compliance and also absence from drug use. Patient is follow Cardiology on discharge. Time Spent with Patient Time attestation: Total time spent providing and/or coordinating discharge services: Exam Narrative: GENERAL: The patient is alert and oriented, in no apparent distress. He is pleasant and conversant in full sentences. HEENT: Pupils are equally round and reactive to light. Extraoccular muscles are intact. Oral mucous membranes are moist without lesions. NECK: The patient has no noted JVD. No cervical palpable lymphadenopathy. CHEST/LUNGS: Lungs are clear bilaterally without rhonchi, rales, or wheezes. There is no subcutaneous air appreciated. There is no tenderness to the chest wall. HEART: The patient has a regular rate and rhythm. No murmurs, rubs, or gallops are appreciated. Distal pulses are 2+. No carotid bruits appreciated. ABDOMEN: The patient?s abdomen is soft, nontender, and nondistended. Bowel sounds are positive. No organomegaly is appreciated. No masses are appreciated. There are no peritoneal signs. There is no Enriquez?s sign. EXTREMITIES: The patient has no peripheral edema. There is no focal long bone tenderness or deformity. SKIN: The patient?s skin is warm and dry, without rashes or lesions. PSYCHIATRIC: The patient has normal mental status and has an appropriate affect. NEUROLOGIC: The patient has 5/5 strength to the upper and lower extremities bilaterally. Sensation is intact throughout. Gait is within normal limits. Deep tendon reflexes are 2+ in all four extremities. There are no gross deficits to the cranial nerves. DS: Data Data Completed and Pending Labs on day of discharge: Labs from last 24 hours 02/22/22 02/22/22 09:10 09:10 WBC 11.3 H RBC 6.89 H Hgb 15.2 Hct 52.0 MCV 75.5 L MCH 22.1 L MCHC 29.2 L RDW 19.9 H Plt Count 382 H MPV 9.6 Sodium 135 L Potassium 4.0 Chloride 95 L Carbon Dioxide 32 H Anion Gap 8 BUN 30 H Creatinine 1.50 H Estim Creat Clear Calc 64 Estimated GFR 50 L Glucose 176 H Calcium 9.1 Discharge Plan Discharge Attending physician on discharge: Mychal Degroot Consulting providers: Otis Mcdowell Discharging Clinician: Mychal Degroot Patient Disposition: Home, Self-Care Activity: no preference Diet: as tolerated Patient Instructions: Antibiotic Form, Heart Failure (D
== END 2022-02-22 15:44 | disposition home or self-care (01) | DRG 291 ==
LOC: ANHED 02-18 03:10 → ANHIMU 02-18 03:17
PROVIDERS: Internal Medicine; Student in an Organized Health Care Education/Training Program; Admitting Provider Internal Medicine; Emergency Provider Emergency Medicine; PCP Nurse Practitioner; Visit Provider Chiropractor
DX: I11.0 Hypertensive heart disease with heart failure (principal); I50.23 Acute on chronic systolic (congestive) heart failure; I42.7 Cardiomyopathy due to drug and external agent; E78.5 Hyperlipidemia, unspecified; F15.10 Other stimulant abuse, uncomplicated; F10.21 Alcohol dependence, in remission; F31.9 Bipolar disorder, unspecified; F17.210 Nicotine dependence, cigarettes, uncomplicated; Z20.822 Contact with and (suspected) exposure to COVID-19; Z91.14 Patient's other noncompliance with medication regimen
CPT/HCPCS: 36415; 71046; 80048; 80053; 83880; 84484; 85025; 85027; 85610; 85730; 87502; 87634; 93005; 94640; 99285; A9270; J1650; J1940; U0003; U0005

== ENCOUNTER 2022-02-28 05:25 | Inpatient (IN) | payer MEDICARE, SELFPAY ==
[2022-02-28] VITALS (17 sets, daily range): BP systolic 120–139; BP diastolic 93–108; PULSE 100–113; RESP 20–36; TEMP 36.2–36.6; O2SAT 84–100; BMI 33.3
--- NOTE | ~2022-02-28 | CT_ITS ---
EXAMINATION: CTA chest PE protocol DATE: 02/28/2022 18:07 INDICATION: Elevated D-dimer TECHNIQUE: Computed tomography angiography (CTA) of the chest was performed with 100 mL Omnipaque-350 intravenous contrast timed to evaluate the pulmonary arteries. Coronal maximum intensity projection 3D-reconstructions were created by the technologist. The dose-length product (DLP) was 851.51 mGy-cm. Automated exposure control and iterative reconstruction technique were employed. COMPARISON: X-ray chest, same date; CT 01/12/2022. FINDINGS: Lung parenchyma and airways: Dependent groundglass opacities with sparing. Pleura: Unremarkable. Thoracic inlet, axillae and chest wall: Unremarkable. Thoracic aorta: Normal. Mediastinum: Calcified and noncalcified mediastinal lymph nodes. Heart and pericardium: Cardiomegaly. No contrast present in the left side of the heart. Coronary artery calcifications: Moderate. Upper abdomen: Mild hepatic vein reflux. Bones: No acute osseous finding. Pulmonary arteries: Study quality: Adequate. No pulmonary emboli detected. IMPRESSION: No CT evidence of acute pulmonary embolus. Cardiac findings concerning for failure/decreased cardiac output, correlate clinically. Pulmonary opacities may reflect dependent atelectasis versus mild edema . Reviewed, dictated and finalized at location K. ETING SERVICES COORDINATOR IMPRESSION: No CT evidence of acute pulmonary embolus. Cardiac findings concerning for fail ure/decreased cardiac output, correlate clinically. Pulmonary opacities may ref lect dependent atelectasis versus mild edema.
--- NOTE | ~2022-02-28 | US_ITS ---
EXAMINATION: US abdomen limited DATE: 03/02/2022 11:14 INDICATION: Epigastric abdominal pain. TECHNIQUE: Multiple grayscale and Doppler ultrasound images of the abdomen were obtained. COMPARISON: CT abdomen and pelvis 01/12/2022 FINDINGS: The pancreas is obscured by bowel gas. The liver is normal without focal lesion. There is a ntegrade flow in main portal vein. The gallbladder is contracted. No gallstones or sonographic Enriquez sign. The common duct is normal and measures 5 mm . IMPRESSION: 1. Normal right upper quadrant ultrasound. Reviewed, dictated and finalized at location A. RACT GRAPHIC DESIGNER
--- NOTE | ~2022-02-28 | XR_ITS ---
EXAMINATION: XR chest 1V portable DATE: 02/28/2022 07:19 INDICATION: Chest pain. TECHNIQUE: A single frontal view of the chest was obtained. COMPARISON: Chest 2 views 02/17/2022, chest CT 01/12/2022 FINDINGS: There is chronic mild elevation of left hemidiaphragm. There is mild atelectasis at left cindi ng base. No pleural effusion or pneumothorax. Cardiomegaly is noted. IMPRESSION: 1. Mild atelectasis at left lung base. 2. Cardiomegaly. Reviewed, dictated and finalized at location A. E SALES TRAINEE
--- NOTE | ~2022-02-28 | US_ITS ---
EXAMINATION: US venous doppler [facility] DATE: 03/02/2022 11:14 INDICATION: Chest pain. TECHNIQUE: Grayscale ultrasound images without and with compression and Doppler ultrasound images of the bilateral lower extremity veins were obtained. COMPARISON: None. FINDINGS: The visualized portions of right common femoral vein, profunda (deep) femoral vein, femoral vein, pop liteal vein, peroneal veins, posterior tibial veins, and greater saphenous vein outflow are patent. The visualized portions of left common femoral vein, profunda femoral vein, femoral vein, popliteal v ein, peroneal veins, posterior tibial veins, and greater saphenous vein outflow are patent. IMPRESSION: 1. No deep venous thrombosis. Reviewed, dictated and finalized at location A. E PICKER
--- NOTE | ~2022-02-28 | XR_ITS ---
EXAMINATION: [id number] Exam Date/Time: 02/28/2022 17:40 BID WRITER HISTORY: Complaining of left lower rib pain after fall Comparison: 02/17/2022. RESULT: Lines, tubes, and devices: None. Lungs and pleura: Diffuse reticular opacities. Cardiomediastinal silhouette: Stable cardiomegaly. Other: No acute osseous or upper abdominal finding. IMPRESSION: Mild interstitial edema and/or senescent change. No acute rib fracture detected. Reviewed, dictated and finalized at location K. WRITER IMPRESSION: Mild interstitial edema and/or senescent change. No acute rib fracture detected .
--- NOTE | 2022-02-28 05:54 | ECG_ITS ---
Measurements Intervals [place] Rate: 107 P: 62 NE: 176 QRS: 8 QRSD: 115 T: 144 QT: 375 QTc: 502 Interpretive Statements SINUS TACHYCARDIA LEFT ATRIAL ENLARGEMENT [-0.15mV P WAVE IN V1/V2] INCOMPLETE LEFT BUNDLE BRANCH BLOCK ABNORMAL ECG COMPARED TO ECG 02/20/2022 09:59:51 NO SIGNIFICANT CHANGE Electronically Signed On 02-28-2022 9:51:36 VALUATION MANAGER by Mychal Quintero M.D.
[2022-02-28 06:04] LABS: Basophils Absolute Auto 0.1 K/mm3 (0.0-0.1); Basophils Percent Auto 0.8 % (0.2-1.2); Eosinophils Absolute Auto 0.1 K/mm3 (0-0.3); Eosinophils Percent Auto 1.2 % (0-4.4); Hematocrit 46.5 % (42.0-52.0); Hemoglobin 13.4 g/dL (14.0-18.0); Immature Granulocyte Absolute 0.03 K/mm3 (0.00-0.031); Immature Granulocyte Percent A 0.4 % (0-0.5); Lymphocytes Absolute Auto 2.79 K/mm3 (0.9-3.2); Lymphocytes Percent Auto 33.4 % (18.3-44.2); Mean Corpuscular HGB Conc 28.8 g/dl (32-36); Mean Corpuscular Hemoglobin 22.2 pg (26-34); Mean Platelet Volume 9.3 fl (7.4-10.4); Monocytes Absolute Auto 0.8 K/mm3 (0.1-0.6); Monocytes Percent Auto 9.7 % (2.6-8.5); Neutrophils Absolute Auto 4.6 K/mm3 (1.3-6.7); Neutrophils Percent Auto 54.5 % (45.5-73.1); Nucleated Red Blood Cells Perc 0.2 % (0.0-0.2); Platelet Count Result 344 k/mm3 (150-375); Red Blood Count 6.04 M/mm3 (4.6-6.20); Red Cell Distribution Width 19.9 % (11.5-14.5); White Blood Count 8.4 K/mm3 (4.5-10.0)
--- NOTE | 2022-02-28 06:08 | PC.NURSE ---
Pt returns to ED after he was discharged from this facility on 02/22. Pt reports left sided chest pain, dizziness, weakness, and multiple falls over the past 5 days he's been home. Pt reports 6 unwitnessed syncopal episodes in one night. Skin is warm and dry. He is tachypneic, breathing 30-40 times per minute. Respirations are shallow. Lung sounds clear bilaterally. 2+ pitting edema noted to bilateral ankles, worse on the left. monitoring analyst shows sinus tach with a rate of 111.
[2022-02-28 06:13] LABS: INR 1.2
[2022-02-28 06:14] LABS: Partial Thromboplastin Time 29.9 SECONDS (22.3-36.8)
[2022-02-28 06:17] LABS: Alanine Aminotransferase 51 U/L (6-50); Albumin Level 4.2 g/dL (3.5-5.1); Alkaline Phosphatase 240 U/L (38-126); Anion Gap 8 mmol/L (8-16); Aspartate Amino Transferase 42 U/L (17-59); Bilirubin,Total 0.6 mg/dL (0.2-1.3); Blood Urea Nitrogen 32 mg/dL (9-20); Carbon Dioxide 23 mmol/L (22-30); Chloride 108 mmol/L (98-107); Estimated Glomerular Filt Rate 50; Glucose 108 mg/dL (65-110); Lipase 197 U/L (23-300); Potassium 4.7 mmol/L (3.4-5.0); Sodium 139 mmol/L (137-145)
[2022-02-28 06:38] LABS: Troponin I 0.064 ng/mL (0.000-0.034)
[2022-02-28 06:40] LABS: Platelet Estimate Adequate (Adequate)
[2022-02-28 06:41] LABS: Anisocytosis 2+ (NORMAL); Macrocytosis 1+ (NORMAL); Ovalocytes 1+ (NORMAL); Tear Drop Cells 1+ (NORMAL)
[2022-02-28 06:42] LABS: Schistocytes None Seen (NORMAL)
--- NOTE | 2022-02-28 07:11 | PC.NURSE ---
Nurse report given to Mary BRYANT
--- NOTE | 2022-02-28 07:29 | ED.GENADULT ---
HPI - General Adult General Chief complaint: Weakness Stated complaint: chest pain Time Seen by Provider: 02/28/22 06:55 History of Present Illness HPI narrative: This is a 38-year-old male with history of heart failure with reduced ejection fraction polysubstance use disorder who was well known to our department presenting for difficulty breathing. Patient was just discharged on [place]. Since then he has continued to use meth and has not taken any of his heart failure medications. Started 2 days ago he started having worsening shortness of breath as well as chest pain on the left side of his chest. Chest pain started after meth use, describes it as a stabbing pain left side of chest that radiates across his chest, 10 out 10 intensity and getting worse. He says this feels like the frequent CHF exacerbations he has had in the past. He also notes he has had multiple episodes of nausea and vomiting as well as frequent falls. When I see the patient white not take his medications he says that he is getting tired of life. When asked if he has thoughts of hurting himself he said I cannot answer that question. Denies homicidal ideation. He admits to using marijuana and methamphetamines. Patient is complaining of significant anxiety. Related Data Home Medications Medication Instructions Recorded Confirmed furosemide 40 mg tablet 40 mg PO DAILY 01/06/22 02/18/22 magnesium oxide 400 mg (241.3 mg 400 mg PO DAILY 01/06/22 02/18/22 magnesium) tablet empagliflozin 10 mg tablet 10 mg PO DAILY 02/18/22 02/18/22 (Jardiance) sacubitril 24 mg-valsartan 26 mg 1 tablet PO BID 02/18/22 02/18/22 tablet (Entresto) Allergies Allergy/AdvReac Type Severity Reaction Status Date / Time Penicillins Allergy Unknown Verified 02/17/22 23:13 trazodone Allergy Hallucinati Verified 02/18/22 11:04 ng varenicline Allergy Agitated Verified 02/18/22 11:04 Review of Systems Review of Systems: CONSTITUTIONAL: Denies night sweats. EYES: No eye pain ENT: Denies rhinorrhea CARDIOVASCULAR: Denies palpitations RESPIRATORY: Denies hemoptysis GASTROINTESTINAL: Denies hematemesis GENITOURINARY: Denies hematuria. SKIN: Denies rash MUSCULOSKELETAL: Denies myalgia. NEUROLOGIC: Denies weakness. PSYCHIATRIC: Denies delusions PMFSH Past Medical History Medical History Bipolar 1 disorder Congestive heart failure with left ventricular systolic dysfunction (LVSD) Polysubstance use disorder Surgical History Surgical History History of hand surgery Family History Family History Father Heart disease Hypertension Cancer Mother Unknown family medical history Social History Social History Social History: Patient has a history of alcoholism but quit approximately 1 year ago. Uses tobacco daily, uses methamphetamine frequently, denies cocaine use. Used IV drugs but has not used in the last 1 year. Surrogate medical decision maker: Amaris Herman, significant other. Code status: Do not resuscitate. Smoking packs per day: 0.5 Smoking cigarettes per day: 10.0 Years smoked: 38 Smoking pack-years: 19.00 Smoking status: Current some day smoker Tobacco type: cigarettes Second hand tobacco smoke exposure: Yes Alcohol intake: former Substance use: current Substance use type: marijuana and methamphetamine Last use: marijuana 02/17, Meth 02/15(smoke) Lack of Transportation: No Lack of Food: Never True Current Housing: I Have Housing Concerned About Future Housing: No Difficulty Paying Gas/Electric Bills: No Difficulty Paying for Meds: No Currently Unemployed: No Education: Grade School Difficulty w/ Childcare or Family Care: No Spiritual care concerns: No Exam Narrative: APPEAR
[2022-02-28] MEDS: LORazepam INJ (*CRX) 2 MG/ML VIAL 1 MG IV PUSH (07:40)
[2022-02-28] MEDS: FUROSEMIDE INJ 100 MG/10 ML VIAL 80 MG IV PUSH (07:40)
[2022-02-28 07:43] LABS: NT Pro B Type Natriuretic Pept 30100 pg/mL (5-100)
[2022-02-28 07:45] LABS: D Dimer 0.86 ug/mL (<0.48)
[2022-02-28 07:46] LABS: Lactic Acid Reflex 1.3 mmol/L (0.7-2.0)
[2022-02-28 09:34] LABS: Troponin I 0.058 ng/mL (0.000-0.034)
--- NOTE | 2022-02-28 12:27 | ADMGEN ---
This patient, Enrique Nichols, was admitted to IMU Room 210-01. Patient/family oriented to hospital policies and general routines including ID bracelet, bed and alarms, visiting hours, pain management, procedures, bathroom and other care routines, personal items, smoking policy, room service/diet, and visiting hours. Information on how to activate the Rapid Response Team has been discussed. Patient/Family are encouraged to report perceived risks to care and to ask questions if they do not understand what they are told or what they should do.
[2022-02-28 12:59] LABS: Troponin I 0.046 ng/mL (0.000-0.034)
[2022-02-28] MEDS: KETOROLAC 30 MG/ML VIAL (*BKC) IV PUSH (14:59)
[2022-02-28] MEDS: LORazepam INJ (*CRX) 2 MG/ML VIAL 0.5 MG IV PUSH (14:59)
[2022-02-28] MEDS: MORPHINE SULFATE (*CRX) 2 MG/ML INJ IV PUSH ×2 (15:33→20:04)
--- NOTE | 2022-02-28 15:45 | PM.IMHP ---
H&P: HPI History of Present Illness Date/Time: 02/28/22 15:45 Chief Complaint: Chest pain Narrative: This is a 46-year-old male patient who has a history congestive heart failure and polysubstance abuse. The patient came to the emergency room today as he was having difficulty breathing. The patient was just discharged from here on the the 22 of February. The patient had been here for the congestive heart failure. The patient is known to be non compliant. The patient continues to use methamphetamines and is noncompliant with his congestive heart failure medications. The patient last used methamphetamines approximately 2 days ago. The patient became more short of breath and was having some chest pain to the left side. This pain is reproducible. Chest pain started after methamphetamine use and is a stabbing pain to the left chest. He has also had episodes of nausea and vomiting as well as frequent falls. The patient stated that he fell yesterday and hurt his hands and knees. The ER doctor asked the patient why he is not using his prescribed medication in the patient stated that he is tired of his life. The patient denies any suicidal or homicidal thoughts. D-dimers noted to be 0.86. Creatinine is 1.5 which is his baseline. Troponin levels 0.064, 0.058, 0.046. The patient has a chronically elevated troponin. And this is his baseline. Chest x-ray was read as mild atelectasis at left lung base, cardiomegaly. The patient was given IV Lasix and Ativan in the emergency room. The patient is being admitted to observation status on the date of service of 02/28/2022. Review of Systems Review of Systems: See HPI All systems reviewed & are unremarkable except as noted in HPI and below Constitutional: Constitutional: Reports as per HPI and Reports no additional constitutional complaints Eyes: Eyes: Reports as per HPI and Reports no additional eye complaints ENT: Reports system reviewed and no additional complaints, except as documented and Reports Normal hearing present Cardiovascular: Cardiovascular: Reports no additional cardiovascular complaints Respiratory: Respiratory: Reports no additional respiratory complaints and Reports no additional respiratory complaints Gastrointestinal: Gastrointestinal: Reports as per HPI and Reports no additional gastrointestinal complaints Musculoskeletal: Musculoskeletal: Reports no additional musculoskeletal complaints Integumentary/Breasts: Skin/Breast: Reports system reviewed and no additional complaints, except as docu and Reports as per HPI Neurologic: Reports system reviewed and no additional complaints, except as documented, Reports as per HPI and Reports Normal hearing present Psychiatric: Psychiatric: Reports no additional psychiatric complaints and Reports as per HPI Endocrine: Endocrine: Reports no additional endocrine complaints Hematologic/Lymphatic: Hematologic/Lymphatic: Reports no additional hematologic/lymphatic complaints Allergic/Immunologic: Allergic/Immunologic: Reports no additional allergic/immunologic complaints [facility] Past Medical History Medical History (Updated 02/28/22 @ 16:14 by Tea Roger NP) Bipolar 1 disorder CHF (congestive heart failure) Congestive heart failure with left ventricular systolic dysfunction (LVSD) Hyperlipidemia Hypertension Polysubstance use disorder Tobacco abuse Surgical History Surgical History (Updated 02/28/22 @ 15:55 by Tea Roger NP) H/O hand surgery History of ankle surgery Right ankle x2 Family History Family History Father Heart disease Hypertension Cancer Mother Unknown family medical history Social History Social History (Updated 02/28/22 @ 16:17 by Tea Roger NP) Social History: Patient has a history of alcoholism but quit approximately 1 year ago. Uses tobacco daily, uses methamphetamine frequently, denies cocaine use. He has 2 chi
[2022-02-28] MEDS: SACUBITRIL/VALSARTAN 24-26 MG TABLET 1 TAB PO (18:30)
[2022-02-28] MEDS: BELLADONNA ALK/PHENOB ELIX 10 ML, MAG HYDROX/ALUMINUM HYD/SIMETH 30 ML, LIDOCAINE HCL 2... PO (18:30)
[2022-02-28] MEDS: hydrOXYzine HCL 25 MG TABLET 50 MG PO (20:05)
[2022-02-28] MEDS: carvediloL 12.5 MG TABLET PO (20:06)
[2022-03-01] VITALS (18 sets, daily range): BP systolic 100–108; BP diastolic 62–85; PULSE 70–100; RESP 18–22; TEMP 35.7–36.7; O2SAT 93–99
[2022-03-01 04:53] LABS: Basophils Absolute Auto 0.1 K/mm3 (0.0-0.1); Basophils Percent Auto 1.1 % (0.2-1.2); Eosinophils Absolute Auto 0.2 K/mm3 (0-0.3); Eosinophils Percent Auto 2.6 % (0-4.4); Hematocrit 41.3 % (42.0-52.0); Hemoglobin 12.2 g/dL (14.0-18.0); Immature Granulocyte Absolute 0.02 K/mm3 (0.00-0.031); Immature Granulocyte Percent A 0.3 % (0-0.5); Lymphocytes Absolute Auto 2.63 K/mm3 (0.9-3.2); Mean Corpuscular HGB Conc 29.5 g/dl (32-36); Mean Corpuscular Volume 74.4 fl (80-100); Mean Platelet Volume 9.6 fl (7.4-10.4); Monocytes Absolute Auto 0.7 K/mm3 (0.1-0.6); Monocytes Percent Auto 10.9 % (2.6-8.5); Neutrophils Absolute Auto 2.7 K/mm3 (1.3-6.7); Neutrophils Percent Auto 43.1 % (45.5-73.1); Nucleated Red Blood Cells Perc 0.6 % (0.0-0.2); Platelet Count Result 346 k/mm3 (150-375); Red Blood Count 5.55 M/mm3 (4.6-6.20); Red Cell Distribution Width 19.6 % (11.5-14.5); White Blood Count 6.3 K/mm3 (4.5-10.0)
[2022-03-01 05:22] LABS: Anisocytosis 1+ (NORMAL); Platelet Estimate Adequate (Adequate); Poikilocytosis 1+ (NORMAL)
[2022-03-01 05:23] LABS: Alanine Aminotransferase 45 U/L (6-50); Albumin Level 3.6 g/dL (3.5-5.1); Alkaline Phosphatase 186 U/L (38-126); Anion Gap 6 mmol/L (8-16); Aspartate Amino Transferase 38 U/L (17-59); Bilirubin,Total 0.4 mg/dL (0.2-1.3); Blood Urea Nitrogen 41 mg/dL (9-20); Calcium 8.2 mg/dL (8.4-10.2); Carbon Dioxide 25 mmol/L (22-30); Chloride 103 mmol/L (98-107); Estimated CRCL calculation 57 ml/min; Estimated Glomerular Filt Rate 43; Glucose 118 mg/dL (65-110); Lipase 79 U/L (23-300); Magnesium 2.1 mg/dL (1.6-2.3); Potassium 4.2 mmol/L (3.4-5.0); Sodium 134 mmol/L (137-145)
--- NOTE | 2022-03-01 09:07 | PM.IMPN ---
Progress Note: A&P Assessment and Plan (1) Chest pain: Code(s): R07.9 - Chest pain, unspecified Status: Acute Assessment and Plan: EF less than 50%, troponins at baseline, telemetry stable, suspect worsening of cardiac condition with possible exacerbation of heart failure Chest x-ray showed no rib fracture Cardiology consultation pending (2) Acute on chronic systolic congestive heart failure: Code(s): I50.23 - Acute on chronic systolic (congestive) heart failure Status: Acute Assessment and Plan: Continue heart failure meds, monitor response to IV Lasix (3) Methamphetamine abuse: Code(s): F15.10 - Other stimulant abuse, uncomplicated Status: Acute Assessment and Plan: Recommended avoiding methamphetamines (4) Dyslipidemia: Code(s): E78.5 - Hyperlipidemia, unspecified Status: Acute Assessment and Plan: Continue statin (5) Depression: Code(s): F32.A - Depression, unspecified Status: Acute Assessment and Plan: Continue hydroxyzine (6) Hypertension: Code(s): I10 - Essential (primary) hypertension Status: Acute Assessment and Plan: Stable on home meds (7) Polysubstance use disorder: Code(s): F19.90 - Other psychoactive substance use, unspecified, uncomplicated Status: Acute Assessment and Plan: As above (8) Tobacco abuse: Code(s): Z72.0 - Tobacco use Status: Acute Assessment and Plan: Recommend smoking cessation Plan DVT prophylaxis with Lovenox GI prophylaxis not indicated Code status full code Subjective Date/time seen: 03/01/22 09:07 Interval history: No overnight events noted. States his chest pain feels about the same as yesterday. Denies nausea, vomiting or diarrhea. Admits to significant urine output. Still feels a little short of breath. Review of Systems Review of Systems: 12 point review of systems was assessed and was negative except as noted in the HPI Exam Narrative: General: Appears to be somewhat uncomfortable, somewhat labored breathing HEENT: Atraumatic, normocephalic, mucous membranes moist CV: Regular rate and rhythm, S1, S2 Lungs: Poor air entry, diminished throughout, some crackles at bases Abdomen: Soft, nontender, nondistended Extremities: Normal to inspection Skin: No rashes noted, no lesions or wounds seen Objective Data Vital Signs Vital Signs: Vital Signs - 24 hr 02/28/22 10:53 02/28/22 12:02 02/28/22 12:20 Temperature 97.1 F L Pulse Rate 108 H 111 H 107 H Respiratory Rate 24 H 24 H 24 H Blood Pressure 137/99 H 138/93 H 135/98 H Pulse Oximetry 97 95 98 Oxygen Delivery 02/28/22 14:00 02/28/22 13:00 02/28/22 16:00 Temperature Pulse Rate 113 H Respiratory Rate Blood Pressure Pulse Oximetry Oxygen Delivery Room Air Room Air 02/28/22 16:00 02/28/22 16:34 02/28/22 16:00 Temperature 97.4 F L Pulse Rate 107 H 108 H Respiratory Rate 28 H Blood Pressure 139/100 H Pulse Oximetry 93 99 Oxygen Delivery Room Air 02/28/22 18:00 02/28/22 20:06 02/28/22 20:00 Temperature 97.1 F L Pulse Rate 112 H 112 H 109 H Respiratory Rate 20 Blood Pressure 127/101 H Pulse Oximetry 99 Oxygen Delivery 02/28/22 20:00 02/28/22 20:00 02/28/22 22:00 Temperature Pulse Rate 108 H 103 H Respiratory Rate Blood Pressure Pulse Oximetry Oxygen Delivery Room Air 02/28/22 23:54 03/01/22 00:00 03/01/22 00:00 Temperature 97.9 F Pulse Rate 100 100 Respiratory Rate 20 Blood Pressure 130/105 H Pulse Oximetry 100 Oxygen Delivery Room Air 03/01/22 02:00 03/01/22 04:00 03/01/22 04:00 Temperature 97.5 F L Pulse Rate 86 84 Respiratory Rate 18 Blood Pressure 100/70 Pulse Oximetry 99 Oxygen Delivery Room Air 03/01/22 04:00 03/01/22 06:00 03/01/22 08:15 Temperature 96.3 F L Pulse Rate 84 86 77 Respiratory Rate 22 H Bloo
[2022-03-01] MEDS: ASPIRIN 81 MG ENTERIC TABLET PO (09:19)
[2022-03-01] MEDS: carvediloL 12.5 MG TABLET PO ×2 (09:19→20:10)
[2022-03-01] MEDS: ENOXAPARIN 40 MG/0.4 ML SYRINGE SUB-Q (09:19)
[2022-03-01] MEDS: SACUBITRIL/VALSARTAN 24-26 MG TABLET 1 TAB PO ×2 (09:19→16:27)
[2022-03-01] MEDS: MAGNESIUM OXIDE 400 MG TABLET PO (09:19)
[2022-03-01] MEDS: SPIRONOLACTONE 25 MG TABLET PO (09:19)
[2022-03-01] MEDS: FUROSEMIDE INJ 40 MG/4 ML VIAL IV PUSH (09:20)
[2022-03-01] MEDS: ATORVASTATIN 10 MG TABLET PO (09:20)
[2022-03-01] MEDS: EMPAGLIFLOZIN 10 MG TABLET PO (09:20)
[2022-03-01] MEDS: MORPHINE SULFATE (*CRX) 2 MG/ML INJ IV PUSH ×3 (09:25→20:27)
[2022-03-01] MEDS: hydrOXYzine HCL 25 MG TABLET 50 MG PO (09:25)
[2022-03-02] VITALS (15 sets, daily range): BP systolic 97–133; BP diastolic 77–86; PULSE 76–116; RESP 18–28; TEMP 36.1–36.8; O2SAT 92–100
[2022-03-02] MEDS: hydrOXYzine HCL 25 MG TABLET 50 MG PO (04:13)
[2022-03-02] MEDS: carvediloL 12.5 MG TABLET PO ×2 (08:35→20:21)
[2022-03-02] MEDS: MAGNESIUM OXIDE 400 MG TABLET PO (08:35)
[2022-03-02] MEDS: EMPAGLIFLOZIN 10 MG TABLET PO (08:35)
[2022-03-02] MEDS: SACUBITRIL/VALSARTAN 24-26 MG TABLET 1 TAB PO ×2 (08:36→18:13)
[2022-03-02] MEDS: ENOXAPARIN 40 MG/0.4 ML SYRINGE SUB-Q (08:36)
[2022-03-02] MEDS: FUROSEMIDE INJ 40 MG/4 ML VIAL IV PUSH ×2 (08:36→20:23)
[2022-03-02] MEDS: ATORVASTATIN 10 MG TABLET PO (08:36)
[2022-03-02] MEDS: SPIRONOLACTONE 25 MG TABLET PO (08:36)
[2022-03-02] MEDS: ASPIRIN 81 MG ENTERIC TABLET PO (08:41)
[2022-03-02] MEDS: MORPHINE SULFATE (*CRX) 2 MG/ML INJ IV PUSH ×2 (08:41→20:23)
--- NOTE | 2022-03-02 08:48 | PM.CNCAR ---
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 It is of course not surprising and not unexpected that since he leaves the hospital and does not take his medication and resumes his drug abuse that he does not do well. Frankly I can not think of anything else I can recommend at this time regarding his management. I will administer some IV furosemide today since he appears to be a bit volume overloaded on physical exam. Mychal Quintero MD [facility] History of Present Illness History of Present Illness Consult date/time: 03/02/22 08:48 Reason For Visit: HFrEF Narrative: This is a 46-year-old man who unfortunately is known to many of the physicians here at [facility] admitted with some chest pain and shortness of breath yesterday I am seeing him in consultation at the request of the hospitalist. He is a gentleman well known to have a severe nonischemic cardiomyopathy which has been attributed to alcohol and illicit drug abuse. He has a history of excessive ethanol drinking as well as methamphetamine use. He has been seen a number of times he is known to have severe cardiomyopathy with very low ejection fraction all of which is due well detailed in previous notes and I will not reiterate to completely in this note today. He was just discharged from this hospital I believe at and was on a good medical regimen and was clinically stable. According to the records after discharge from the hospital he discontinued his cardiac medicines and resumed his drug abuse. He is back in the hospital not surprisingly feeling poorly with difficulty breathing and chest pain and in this setting we are asked to see him in consultation. Most unfortunately this has been a recurring theme with this gentleman. His medical regimen has been appropriately resume by the hospitalist which includes carvedilol, atorvastatin, Entresto and spironolactone. He also takes a daily dose of furosemide. Today his principal complaint is 78 still feels short of breath with modest activity he has no other complaints today. Troponin levels of course were sampled following admission which are mildly elevated but flat, this has also been a a chronic feature of this gentleman's laboratory data and is of course also not surprising given the severity of his LV dysfunction along with some underlying chronic kidney disease as well. Review of Systems Constitutional: Constitutional: Reports lethargy Eyes: Eyes: Reports no additional eye complaints ENT: Reports system reviewed and no additional complaints, except as documented Cardiovascular: Cardiovascular: Reports as per HPI Respiratory: Respiratory: Reports dyspnea Gastrointestinal: Gastrointestinal: Reports no additional gastrointestinal complaints Musculoskeletal: Musculoskeletal: Reports no additional musculoskeletal complaints Integumentary/Breasts: Skin/Breast: Reports system reviewed and no additional complaints, except as docu Neurologic: Reports system reviewed and no additional complaints, except as documented Psychiatric: Comments: Patient reports thoughts of not wishing to survive Endocrine: Endocrine: Reports no additional endocrine complaints Hematologic/Lymphatic: Hematologic/Lymphatic: Reports no additional hematologic/lymphatic complaints Allergic/Immunologic: Allergic/Immunologic: Reports no additional allergic/immunologic complaints [facility] Past Medical History Medical History (Updated 02/28/22 @ 16:14 by Tea Roger NP) Bipolar 1 disorder CHF (congestive heart failure) Congestive heart failure with left v
--- NOTE | 2022-03-02 12:53 | PM.IMPN ---
Progress Note: A&P Assessment and Plan (1) Chest pain: Code(s): R07.9 - Chest pain, unspecified Status: Acute Assessment and Plan: EF less than 50%, troponins at baseline, telemetry stable, suspect worsening of cardiac condition with possible exacerbation of heart failure Chest x-ray showed no rib fracture Appreciate cardiology consultation, increasing IV diuresis today (2) Acute on chronic systolic congestive heart failure: Code(s): I50.23 - Acute on chronic systolic (congestive) heart failure Status: Acute Assessment and Plan: Continue heart failure meds, monitor response to IV Lasix (3) Methamphetamine abuse: Code(s): F15.10 - Other stimulant abuse, uncomplicated Status: Acute Assessment and Plan: Recommended avoiding methamphetamines (4) Dyslipidemia: Code(s): E78.5 - Hyperlipidemia, unspecified Status: Acute Assessment and Plan: Continue statin (5) Depression: Code(s): F32.A - Depression, unspecified Status: Acute Assessment and Plan: Continue hydroxyzine (6) Hypertension: Code(s): I10 - Essential (primary) hypertension Status: Acute Assessment and Plan: Stable on home meds (7) Polysubstance use disorder: Code(s): F19.90 - Other psychoactive substance use, unspecified, uncomplicated Status: Acute Assessment and Plan: As above (8) Tobacco abuse: Code(s): Z72.0 - Tobacco use Status: Acute Assessment and Plan: Recommend smoking cessation Plan DVT prophylaxis with Lovenox GI prophylaxis not indicated Code status full code Subjective Date/time seen: 03/02/22 12:53 Interval history: No overnight events noted. No nausea, vomiting or diarrhea. No fevers or chills. Patient still feels generalized malaise, chest pain and trouble breathing. Review of Systems Review of Systems: 12 point review of systems was assessed and was negative except as noted in the HPI Exam Narrative: General: No acute distress, alert and oriented per baseline HEENT: Atraumatic, normocephalic, mucous membranes moist CV: Regular rate and rhythm, S1, S2 Lungs: Clear to auscultation bilaterally, no rales or crackles noted, no wheezes, good air entry Abdomen: Soft, nontender, nondistended Extremities: Normal to inspection, 1+ pitting edema bilaterally Skin: No rashes noted, no lesions or wounds seen Psych: Euthymic, normal affect Objective Data Vital Signs Vital Signs: Vital Signs - 24 hr 03/01/22 14:00 03/01/22 15:36 03/01/22 16:00 Temperature 96.6 F L Pulse Rate 72 72 Respiratory Rate 20 Blood Pressure 100/62 Pulse Oximetry 99 Oxygen Delivery Room Air 03/01/22 16:00 03/01/22 18:20 03/01/22 20:10 Temperature Pulse Rate 70 77 85 Respiratory Rate Blood Pressure Pulse Oximetry Oxygen Delivery 03/01/22 20:00 03/01/22 20:00 03/01/22 20:00 Temperature 98.0 F Pulse Rate 85 75 78 Respiratory Rate 20 20 Blood Pressure 103/82 Pulse Oximetry 94 94 Oxygen Delivery Room Air 03/01/22 22:00 03/01/22 23:32 03/02/22 00:00 Temperature 97.9 F Pulse Rate 80 83 81 Respiratory Rate 20 Blood Pressure 106/85 Pulse Oximetry 93 Oxygen Delivery 03/02/22 00:00 03/02/22 02:00 03/02/22 04:00 Temperature 97.9 F Pulse Rate 85 77 88 Respiratory Rate 20 20 Blood Pressure 110/86 Pulse Oximetry 94 94 Oxygen Delivery Room Air 03/02/22 04:00 03/02/22 04:00 03/02/22 06:00 Temperature Pulse Rate 83 83 85 Respiratory Rate 20 Blood Pressure Pulse Oximetry 94 Oxygen Delivery Room Air 03/02/22 08:35 03/02/22 08:00 03/02/22 08:00 Temperature 96.9 F L Pulse Rate 79 76 89 Respiratory Rate 28 H Blood Pressure 107/86 Pulse Oximetry 100 95 Oxygen Delivery Room Air 03/02/22 08:00 03/02/22 10:00 03/02/22 12:00 Temperature 98.2 F Pulse Rate 89 80 78 Respiratory Rate 26 H Bl
[2022-03-03] VITALS (8 sets, daily range): BP systolic 104–118; BP diastolic 77–90; PULSE 81–88; RESP 20–24; TEMP 36.2–36.6; O2SAT 95
[2022-03-03] MEDS: SPIRONOLACTONE 25 MG TABLET PO (09:10)
[2022-03-03] MEDS: SACUBITRIL/VALSARTAN 24-26 MG TABLET 1 TAB PO (09:10)
[2022-03-03] MEDS: EMPAGLIFLOZIN 10 MG TABLET PO (09:10)
[2022-03-03] MEDS: carvediloL 12.5 MG TABLET PO (09:10)
[2022-03-03] MEDS: ENOXAPARIN 40 MG/0.4 ML SYRINGE SUB-Q (09:11)
[2022-03-03] MEDS: ATORVASTATIN 10 MG TABLET PO (09:11)
[2022-03-03] MEDS: MAGNESIUM OXIDE 400 MG TABLET PO (09:11)
--- NOTE | 2022-03-03 09:11 | PM.IMPN ---
Progress Note: A&P Assessment and Plan (1) Chest pain: Code(s): R07.9 - Chest pain, unspecified Status: Acute Assessment and Plan: EF less than 50%, troponins at baseline, telemetry stable, suspect worsening of cardiac condition with possible exacerbation of heart failure Chest x-ray showed no rib fracture Appreciate cardiology consultation Kidney function worsening today, will hold diuretic today, restart oral tomorrow if kidney function improves Patient has extremely poor prognosis and may need aggressive dialysis or LVAD in the future to survive (2) Acute on chronic systolic congestive heart failure: Code(s): I50.23 - Acute on chronic systolic (congestive) heart failure Status: Acute Assessment and Plan: Continue heart failure meds, hold diuretic (3) Methamphetamine abuse: Code(s): F15.10 - Other stimulant abuse, uncomplicated Status: Acute Assessment and Plan: Recommended avoiding methamphetamines (4) Dyslipidemia: Code(s): E78.5 - Hyperlipidemia, unspecified Status: Acute Assessment and Plan: Continue statin (5) Depression: Code(s): F32.A - Depression, unspecified Status: Acute Assessment and Plan: Continue hydroxyzine (6) Hypertension: Code(s): I10 - Essential (primary) hypertension Status: Acute Assessment and Plan: Stable on home meds (7) Polysubstance use disorder: Code(s): F19.90 - Other psychoactive substance use, unspecified, uncomplicated Status: Acute Assessment and Plan: As above (8) Tobacco abuse: Code(s): Z72.0 - Tobacco use Status: Acute Assessment and Plan: Recommend smoking cessation Plan DVT prophylaxis with Lovenox GI prophylaxis not indicated Code status full code Subjective Date/time seen: 03/03/22 09:11 Interval history: No overnight events noted. No nausea, vomiting or diarrhea. No fevers or chills. Patient still feels generalized malaise, chest pain and trouble breathing. Exam Narrative: General: No acute distress, alert and oriented per baseline HEENT: Atraumatic, normocephalic, mucous membranes moist CV: Regular rate and rhythm, S1, S2 Lungs: Clear to auscultation bilaterally, no rales or crackles noted, no wheezes, good air entry Abdomen: Soft, nontender, nondistended Extremities: Normal to inspection, 1+ pitting edema bilaterally Skin: No rashes noted, no lesions or wounds seen Psych: Euthymic, normal affect Objective Data Vital Signs Vital Signs: Vital Signs - 24 hr 03/02/22 10:00 03/02/22 12:00 03/02/22 12:00 Temperature 98.2 F Pulse Rate 80 78 77 Respiratory Rate 26 H Blood Pressure 97/83 L Pulse Oximetry 92 97 Oxygen Delivery Room Air 03/02/22 12:00 03/02/22 16:00 03/02/22 14:00 Temperature 96.9 F L Pulse Rate 77 79 84 Respiratory Rate 26 H Blood Pressure 100/78 Pulse Oximetry 99 Oxygen Delivery 03/02/22 16:00 03/02/22 16:00 03/02/22 18:00 Temperature Pulse Rate 81 81 77 Respiratory Rate Blood Pressure Pulse Oximetry 94 Oxygen Delivery Room Air 03/02/22 20:21 03/02/22 20:00 03/02/22 20:00 Temperature 97.9 F Pulse Rate 79 79 80 Respiratory Rate 20 Blood Pressure 102/77 Pulse Oximetry 97 Oxygen Delivery 03/02/22 20:00 03/02/22 22:57 03/02/22 22:00 Temperature 98.0 F Pulse Rate 116 H 82 Respiratory Rate 18 Blood Pressure 133/86 Pulse Oximetry 97 Oxygen Delivery Room Air 03/03/22 00:00 03/03/22 00:00 03/03/22 02:00 Temperature Pulse Rate 81 83 Respiratory Rate Blood Pressure Pulse Oximetry Oxygen Delivery Room Air 03/03/22 04:00 03/03/22 04:00 03/03/22 04:00 Temperature 97.9 F Pulse Rate 85 87 Respiratory Rate 20 Blood Pressure 117/90 Pulse Oximetry 95 Oxygen Delivery Room Air 03/03/22 06:00 03/03/22 08:00 Temperature 97.2 F L Pulse Rate 84 82 Respiratory Ra
[2022-03-03] MEDS: hydrOXYzine HCL 25 MG TABLET 50 MG PO (09:15)
[2022-03-03] MEDS: ASPIRIN 81 MG ENTERIC TABLET PO (09:15)
[2022-03-03] MEDS: MORPHINE SULFATE (*CRX) 2 MG/ML INJ IV PUSH (09:17)
--- NOTE | 2022-03-03 09:45 | PM.PNCARD ---
Progress Note: A&P Assessment and Plan (1) CHF (congestive heart failure): Code(s): I50.9 - Heart failure, unspecified Status: Acute Assessment and Plan: Improved with diuretic and resumption of his HF medications. OK for discharge home today from a cardiac standpoint. (2) Congestive heart failure with left ventricular systolic dysfunction (LVSD): Code(s): I50.20 - Unspecified systolic (congestive) heart failure Status: Acute Assessment and Plan: Severe LV systolic dysfunction secondary to ETOH and illicit drug abuse. He is on a good medical regimen for his cardiomyopathy with coreg, jardiance, spironolactone, and Entresto. He should be discharged on a maintenance dose of furosemide as well. He was encouraged to adhere to his medical regimen and abstain from drinking alcohol or taking illicit drugs. I also reminded him of his fluid restriction and low sodium diet. LifeVest in place. He has short interval follow up already scheduled in our office. Subjective Date/time seen: 03/03/22 09:45 Cardiology follow up for cardiomyopathy, CHF He is feeling better this morning. Denies any shortness of breath or chest pain. No palpitations. His edema has resolved. Review of Systems Constitutional: Constitutional: Reports lethargy Eyes: Eyes: Reports no additional eye complaints ENT: Reports system reviewed and no additional complaints, except as documented Cardiovascular: Cardiovascular: Reports as per HPI and Reports dyspnea Respiratory: Respiratory: Reports dyspnea Gastrointestinal: Gastrointestinal: Reports no additional gastrointestinal complaints Musculoskeletal: Musculoskeletal: Reports no additional musculoskeletal complaints Integumentary/Breasts: Skin/Breast: Reports system reviewed and no additional complaints, except as docu Neurologic: Reports system reviewed and no additional complaints, except as documented Endocrine: Endocrine: Reports no additional endocrine complaints Hematologic/Lymphatic: Hematologic/Lymphatic: Reports no additional hematologic/lymphatic complaints Allergic/Immunologic: Allergic/Immunologic: Reports no additional allergic/immunologic complaints Exam Const: General: comfortable, no acute distress, well developed, alert and awake HENMT: Mouth: Yes moist mucous membranes Eyes: Sclera: sclerae normal Neck: Neck: supple Resp: Effort & Inspection: normal respiratory effort and able to speak in complete sentences Auscultation: clear to auscultation bilaterally Cardio: Rate: regular rate and tachycardic Rhythm: regular rhythm GI: Auscultation: normal bowel sounds Skin: General skin exam: normal color Neuro: Other: Alert and oriented x3 Extrem: Other: Trace pedal edema Objective Data Vital Signs Vital Signs: Vital Signs - 24 hr 03/02/22 10:00 03/02/22 12:00 03/02/22 12:00 Temperature 36.8 C Pulse Rate 80 78 77 Respiratory Rate 26 H Blood Pressure 97/83 L Pulse Oximetry 92 97 Oxygen Delivery Room Air 03/02/22 12:00 03/02/22 16:00 03/02/22 14:00 Temperature 36.1 C L Pulse Rate 77 79 84 Respiratory Rate 26 H Blood Pressure 100/78 Pulse Oximetry 99 Oxygen Delivery 03/02/22 16:00 03/02/22 16:00 03/02/22 18:00 Temperature Pulse Rate 81 81 77 Respiratory Rate Blood Pressure Pulse Oximetry 94 Oxygen Delivery Room Air 03/02/22 20:21 03/02/22 20:00 03/02/22 20:00 Temperature 36.6 C Pulse Rate 79 79 80 Respiratory Rate 20 Blood Pressure 102/77 Pulse Oximetry 97 Oxygen Delivery 03/02/22 20:00 03/02/22 22:57 03/02/22 22:00 Temperature 36.7 C Pulse Rate 116 H 82 Respiratory Rate 18 Blood Pressure 133/86 Pulse Oximetry 97 Oxygen Delivery Room Air 03/03/22 00:00 03/03/22 00:00 03/03/22 02:00 Temperature Pulse Rate 81 83 Respiratory Rate Blood Pressure Pulse Oximetry Oxygen Delivery Room Air 03/03/22 04:00
[2022-03-03 11:06] LABS: Basophils Absolute Auto 0.1 K/mm3 (0.0-0.1); Basophils Percent Auto 0.9 % (0.2-1.2); Eosinophils Absolute Auto 0.2 K/mm3 (0-0.3); Eosinophils Percent Auto 1.7 % (0-4.4); Hematocrit 47.5 % (42.0-52.0); Hemoglobin 14.2 g/dL (14.0-18.0); Immature Granulocyte Absolute 0.04 K/mm3 (0.00-0.031); Immature Granulocyte Percent A 0.4 % (0-0.5); Lymphocytes Absolute Auto 2.48 K/mm3 (0.9-3.2); Lymphocytes Percent Auto 26.6 % (18.3-44.2); Mean Corpuscular HGB Conc 29.9 g/dl (32-36); Mean Corpuscular Hemoglobin 22.1 pg (26-34); Mean Corpuscular Volume 73.9 fl (80-100); Mean Platelet Volume 9.5 fl (7.4-10.4); Monocytes Absolute Auto 1.1 K/mm3 (0.1-0.6); Monocytes Percent Auto 11.9 % (2.6-8.5); Neutrophils Absolute Auto 5.5 K/mm3 (1.3-6.7); Neutrophils Percent Auto 58.5 % (45.5-73.1); Nucleated Red Blood Cells Perc 0.2 % (0.0-0.2); Platelet Count Result 423 k/mm3 (150-375); Red Blood Count 6.43 M/mm3 (4.6-6.20); Red Cell Distribution Width 19.9 % (11.5-14.5); White Blood Count 9.3 K/mm3 (4.5-10.0)
[2022-03-03 11:12] LABS: Alanine Aminotransferase 46 U/L (6-50); Albumin Level 4.2 g/dL (3.5-5.1); Alkaline Phosphatase 209 U/L (38-126); Anion Gap 6 mmol/L (8-16); Aspartate Amino Transferase 47 U/L (17-59); Bilirubin,Total 0.8 mg/dL (0.2-1.3); Blood Urea Nitrogen 40 mg/dL (9-20); Calcium 8.9 mg/dL (8.4-10.2); Carbon Dioxide 33 mmol/L (22-30); Chloride 93 mmol/L (98-107); Estimated CRCL calculation 54 ml/min; Estimated Glomerular Filt Rate 40; Glucose 130 mg/dL (65-110); Potassium 4.8 mmol/L (3.4-5.0); Sodium 132 mmol/L (137-145)
--- NOTE | 2022-03-03 12:52 | PM.DS ---
DS: Admitting Diagnosis Discharge Date 03/03/22 Admitting Diagnosis sob DS: Discharge Diagnosis Discharge Diagnosis (1) Chest pain: Code(s): R07.9 - Chest pain, unspecified Status: Acute Assessment and Plan: EF less than 50%, troponins at baseline, telemetry stable, suspect worsening of cardiac condition with possible exacerbation of heart failure Chest x-ray showed no rib fracture Appreciate cardiology consultation Kidney function worsening today, will hold diuretic today, restart oral tomorrow if kidney function improves Patient has extremely poor prognosis and may need aggressive dialysis or LVAD in the future to survive (2) Acute on chronic systolic congestive heart failure: Code(s): I50.23 - Acute on chronic systolic (congestive) heart failure Status: Acute Assessment and Plan: Continue heart failure meds, hold diuretic (3) Methamphetamine abuse: Code(s): F15.10 - Other stimulant abuse, uncomplicated Status: Acute Assessment and Plan: Recommended avoiding methamphetamines (4) Dyslipidemia: Code(s): E78.5 - Hyperlipidemia, unspecified Status: Acute Assessment and Plan: Continue statin (5) Depression: Code(s): F32.A - Depression, unspecified Status: Acute Assessment and Plan: Continue hydroxyzine (6) Hypertension: Code(s): I10 - Essential (primary) hypertension Status: Acute Assessment and Plan: Stable on home meds (7) Polysubstance use disorder: Code(s): F19.90 - Other psychoactive substance use, unspecified, uncomplicated Status: Acute Assessment and Plan: As above (8) Tobacco abuse: Code(s): Z72.0 - Tobacco use Status: Acute Assessment and Plan: Recommend smoking cessation Plan DVT prophylaxis with Lovenox GI prophylaxis not indicated Code status full code DS: Summary Hospital Course Hospital Course: 46 y/o M with past medical history for severe cardiomyopathy and methamphetamine abuse is presenting with shortness of breath and lower extremity edema. Cardiology was consulted, home meds were continued, oral diuretics were switched to IV. Strict in's and out's were monitored, daily weights were assessed. Patient's symptoms improved, creatinine remained relatively stable. He was discharged in stable condition with close outpatient follow-up by Cardiology on Lasix 40 mg orally as well as his other home medications. Time Spent with Patient Time attestation: Total time spent providing and/or coordinating discharge services: Exam Narrative: General: No acute distress, alert and oriented per baseline HEENT: Atraumatic, normocephalic, mucous membranes moist CV: Regular rate and rhythm, S1, S2 Lungs: Clear to auscultation bilaterally, no rales or crackles noted, no wheezes, good air entry Abdomen: Soft, nontender, nondistended Extremities: Normal to inspection, 1+ pitting edema bilaterally Skin: No rashes noted, no lesions or wounds seen Psych: Euthymic, normal affect DS: Data Data Completed and Pending Labs on day of discharge: Labs from last 24 hours 03/03/22 03/03/22 10:55 10:55 WBC 9.3 RBC 6.43 H Hgb 14.2 Hct 47.5 MCV 73.9 L MCH 22.1 L MCHC 29.9 L RDW 19.9 H Plt Count 423 H MPV 9.5 Immature Gran % (Auto) 0.4 Neut % (Auto) 58.5 Lymph % (Auto) 26.6 [place] % (Auto) 11.9 H Eos % (Auto) 1.7 Baso % (Auto) 0.9 Lymph # (Auto) 2.48 [place] # (Auto) 1.1 H Eos # (Auto) 0.2 Baso # (Auto) 0.1 Abs Immat Gran (auto) 0.04 H Absolute Neuts (auto) 5.5 Absolute Nucleated RBC 0.0 Nucleated RBC % 0.2 Sodium 132 L Potassium 4.8 Chloride 93 L Carbon Dioxide 33 H Anion Gap 6 L BUN 40 H Creatinine 1.80 H Estim Creat Clear Calc 54 Estimated GFR 40 L Glucose 130 H Calcium 8.9 Total Bilirubin 0.8 AST 47 ALT 46 Alkaline Phosphatase 209 H Total Protein 8.0 Albumin
[2022-03-03] MEDS: FUROSEMIDE 40 MG TABLET PO (13:19)
== END 2022-03-03 13:39 | disposition home or self-care (01) | DRG 293 ==
LOC: ANHED 06:55 → ANHIMU 11:46
PROVIDERS: General Practice; Nurse Practitioner; Admitting Provider Chiropractor; Emergency Provider Emergency Medicine; PCP Nurse Practitioner; Visit Provider Student in an Organized Health Care Education/Training Program
DX: I50.23 Acute on chronic systolic (congestive) heart failure (principal); F15.10 Other stimulant abuse, uncomplicated; E78.5 Hyperlipidemia, unspecified; Z82.49 Family history of ischemic heart disease and other diseases of the circulatory system; Z88.0 Allergy status to penicillin; Z79.899 Other long term (current) drug therapy; Z91.14 Patient's other noncompliance with medication regimen
CPT/HCPCS: 36415; 71045; 71101; 71275; 76705; 80053; 83605; 83690; 83735; 83880; 84443; 84484; 85025; 85380; 85610; 85730; 93005; 93970; 96372; 96374; 96375; 96376; 99285; A9270; G0378; J1650; J1885; J1940; J2060; J2270; Q9967

== ENCOUNTER 2022-03-29 11:56 | Inpatient (IN) | payer MEDICARE, SELFPAY ==
[2022-03-29] VITALS (12 sets, daily range): BP systolic 107–134; BP diastolic 75–111; PULSE 82–126; RESP 16–30; TEMP 36.4–36.6; O2SAT 90–100; BMI 33.0
--- NOTE | ~2022-03-29 | XR_ITS ---
XR chest 1V portable 03/29/2022 12:28 Indication: Difficulty breathing. CHF. Procedure: AP portable chest Comparison: Comparison to multiple prior studies sequentially, with oldest reviewed study dated 12/30. Findings: There is bilateral perihilar and bibasilar airspace disease with peribronchial thickening. Moderate cardiomegaly. No significant effusion or pneumothorax. No acute osseous abnormality. Impression: 1: Bilateral perihilar and basilar airspace disease which may represent edema or pneumonia. Reviewed, dictated and finalized at location A. AR TACKER Impression: 1: Bilateral perihilar and basilar airspace disease which may represent edema o r pneumonia.
--- NOTE | ~2022-03-29 | XR_ITS ---
EXAMINATION: XR chest 1V portable INDICATION: Shortness of breath TECHNIQUE: Portable AP chest at 1322 hours COMPARISON: 03/30/2022 FINDINGS: Cardiomegaly is noted. Airspace opacities of the left mid and lower lung zones persist with slight worsening. Diffuse lung disease persists without significant change. There is a small left pl eural effusion. No pneumothorax is identified. IMPRESSION: 1. Airspace opacities of the left mid and lower lung zones with slight worsening, consistent with pne umonia. 2. Otherwise stable diffuse lung disease, consistent with atelectasis. Reviewed, dictated and finalized at location B. RINTENDENT OF GENERATION IMPRESSION: 1. Airspace opacities of the left mid and lower lung zones with slight worsenin g, consistent with pneumonia. 2. Otherwise stable diffuse lung disease, consistent with atelectasis.
--- NOTE | ~2022-03-29 | XR_ITS ---
EXAMINATION: XR chest 1V portable INDICATION: Chest pain TECHNIQUE: Portable AP chest at 1205 hours COMPARISON: 03/29/2022 FINDINGS: Cardiomegaly is noted. There are persistent interstitial and airspace opacities throughout all lung zones without significant change. More focal airspace opacity is seen in the left mid and lo wer lung zones. No pleural effusion or pneumothorax. IMPRESSION: 1. Diffuse lung disease, consistent with pneumonia and/or pulmonary edema. 2. Cardiomegaly. 3. Airspace opacities of the left mid and lower lung zones, consistent with atelectasis versus pneumo roderick. Reviewed, dictated and finalized at location B. FINISHER IMPRESSION: 1. Diffuse lung disease, consistent with pneumonia and/or pulmonary edema. 2. Cardiomegaly. 3. Airspace opacities of the left mid and lower lung zones, consistent with ate lectasis versus pneumonia.
--- NOTE | ~2022-03-29 | CT_ITS ---
EXAMINATION: CTA chest PE protocol DATE: 03/30/2022 13:08 INDICATION: Chest pain TECHNIQUE: Computed tomography (CT) pulmonary angiogram of the chest was performed with 100 mL Omnipa que-350 intravenous contrast. Additional 3D reconstructions utilizing coronal maximum intensity proje ction (MIP) were performed. The dose-length product was 767.72 mGy-cm. COMPARISON: None FINDINGS: Excellent contrast opacification of the pulmonary arteries. There is mild streak artifact from dense contrast in the superior vena cava and right atrium. Mild scattered respiratory motion artifact. Toge ther this mildly decreases sensitivity in some of the smaller subsegmental pulmonary arteries. No pul monary embolism identified. Patchy consolidation at the lingula with small patchy airspace opacity at the anterior basilar right lower lobe concerning for pneumonia. Scattered linear discoid atelectasis /scarring in the bilateral lower lungs most prominent in the left lower lobe. Mosaic attenuation with additional less dense groundglass opacities dependently throughout the bilateral lower lobes and pos teriorly at the bilateral upper lobes more suspicious for atelectasis. No smooth septal line thickeni ng to suggest pulmonary edema. Cardiomegaly. Atherosclerotic coronary artery calcification is. No per icardial effusion. Mild enlargement of the central pulmonary arteries consistent with pulmonary arter ial hypertension. Thoracic aorta is normal in caliber. Calcified right mediastinal and right hilar ly mph nodes nodes consistent with old granulomatous disease. Likely reactive mild mediastinal and bilat eral hilar lymphadenopathy. Mild thoracic dextrocurvature with mild spondylosis. IMPRESSION: 1. No pulmonary embolism. 2. Consolidation in the lingula and small region in the anterobasilar right lower lobe consistent wit h pneumonia. 3. Cardiomegaly. 4. Mild likely reactive mediastinal and bilateral hilar lymphadenopathy. Reviewed, dictated and finalized at location A. AL MEDIA MARKETER IMPRESSION: 1. No pulmonary embolism. 2. Consolidation in the lingula and small region in the anterobasilar right low er lobe consistent with pneumonia. 3. Cardiomegaly. 4. Mild likely reactive mediastinal and bilateral hilar lymphadenopathy.
--- NOTE | 2022-03-29 12:04 | ECG_ITS ---
Measurements Intervals [place] Rate: 123 P: 62 CO: 160 QRS: 8 QRSD: 113 T: 44 QT: 329 QTc: 471 Interpretive Statements SINUS TACHYCARDIA INCOMPLETE LEFT BUNDLE BRANCH BLOCK LOW QRS VOLTAGE IN LIMB LEADS CANNOT RULE OUT SEPTAL INFARCT, AGE INDETERMINATE BORDERLINE ST-T WAVE ABNORMALITY- INF/HIGH LAT LEADS ABNORMAL ECG COMPARED TO ECG 02/28/2022 05:56:52 HEART RATE HAS INCREASED Electronically Signed On 03-29-2022 15:23:19 CIRCLE SHEAR OPERATOR by Cecil Ashton D.O.
--- NOTE | 2022-03-29 12:20 | ED.CHESTPAIN ---
HPI - Chest Pain General Chief Complaint: Chest Pain Stated Complaint: heart problems Time Seen by Provider: 03/29/22 12:17 Source: RN notes reviewed History of Present Illness HPI narrative: Patient presents emergency department from home for chest pain. Patient states pain began 2 days ago. The pain is located over the left side of the chest and radiates around to the left back described as sharp and stabbing in nature. Patient states he has a history of only using 15% of his heart states he supposed to be on a LifeVest but has stopped wearing it 2 weeks ago and stopped taking all of his medications 2 days ago states that he is tired of dealing with all of his cardiac issues he denies wanting to and denies any suicidal or homicidal ideations he does state he has been feeling short of breath with the symptoms he denies any fevers or chills abdominal pain nausea or vomiting. Patient states he is followed by cardiology at [facility] Related Data Home Medications Medication Instructions Recorded Confirmed furosemide 40 mg tablet 40 mg PO DAILY 01/06/22 02/28/22 magnesium oxide 400 mg (241.3 mg 400 mg PO DAILY 01/06/22 02/28/22 magnesium) tablet empagliflozin 10 mg tablet 10 mg PO DAILY 02/18/22 02/28/22 (Jardiance) sacubitril 24 mg-valsartan 26 mg 1 tablet PO BID 02/18/22 02/28/22 tablet (Entresto) Allergies Allergy/AdvReac Type Severity Reaction Status Date / Time Penicillins Allergy Unknown Verified 02/28/22 12:47 trazodone Allergy Hallucinati Verified 02/28/22 12:47 ng varenicline Allergy Agitated Verified 02/28/22 12:47 Review of Systems Review of Systems: Gen.: Denies fevers or chills ENT: Denies congestion Respiratory: Reports shortness of breath CV: See HPI GI: Denies abdominal pain nausea, emesis or diarrhea Musculoskeletal: Denies back pain or muscle pain Neuro: Denies numbness, tingling, weakness or focal weakness Skin: Denies rash Except as documented, all other systems reviewed and negative [facility] Past Medical History Medical History Bipolar 1 disorder CHF (congestive heart failure) Congestive heart failure with left ventricular systolic dysfunction (LVSD) Hyperlipidemia Hypertension Polysubstance use disorder Tobacco abuse Surgical History Surgical History (Updated 02/28/22 @ 15:55 by Tea Roger NP) H/O hand surgery History of ankle surgery Right ankle x2 Family History Family History Father Heart disease Hypertension Cancer Mother Unknown family medical history Social History Social History Social History: Patient has a history of alcoholism but quit approximately 1 year ago. Uses tobacco daily, uses methamphetamine frequently, denies cocaine use. He has 2 children. He continues to smoke at least a pack a cigarettes a day. Surrogate medical decision maker: Amaris Herman, significant other. Code status: Full code Smoking packs per day: 0.5 Smoking cigarettes per day: 10.0 Years smoked: 38 Smoking pack-years: 19.00 Smoking status: Current every day smoker Tobacco type: cigarettes Second hand tobacco smoke exposure: Yes Alcohol intake: never Substance use: current Substance use type: marijuana and amphetamines Last use: marijuana 02/27/22, amphetamines 02/28/22 Lack of Transportation: No Lack of Food: Often True Current Housing: I Have Housing Concerned About Future Housing: No Difficulty Paying Gas/Electric Bills: No Difficulty Paying for Meds: No Currently Unemployed: No Education: Grade School Difficulty w/ Childcare or Family Care: No Spiritual care concerns: No Exam Narrative: APPEARANCE: No acute distress, nontoxic, resting in bed EYES: EOMI HEENT: Normocephalic, atraumatic, OMM RESPIRATORY: Mild respiratory distress s
[2022-03-29 12:32] LABS: Basophils Absolute Auto 0.1 K/mm3 (0.0-0.1); Basophils Percent Auto 0.5 % (0.2-1.2); Eosinophils Percent Auto 0.3 % (0-4.4); Hematocrit 46.9 % (42.0-52.0); Hemoglobin 13.8 g/dL (14.0-18.0); Immature Granulocyte Absolute 0.04 K/mm3 (0.00-0.031); Immature Granulocyte Percent A 0.3 % (0-0.5); Lymphocytes Absolute Auto 3.02 K/mm3 (0.9-3.2); Lymphocytes Percent Auto 25.7 % (18.3-44.2); Mean Corpuscular HGB Conc 29.4 g/dl (32-36); Mean Corpuscular Hemoglobin 22.2 pg (26-34); Mean Corpuscular Volume 75.3 fl (80-100); Mean Platelet Volume 9.9 fl (7.4-10.4); Monocytes Absolute Auto 1.5 K/mm3 (0.1-0.6); Neutrophils Absolute Auto 7.1 K/mm3 (1.3-6.7); Neutrophils Percent Auto 60.2 % (45.5-73.1); Nucleated Red Blood Cells Perc 0.3 % (0.0-0.2); Platelet Count Result 326 k/mm3 (150-375); Red Blood Count 6.23 M/mm3 (4.6-6.20); Red Cell Distribution Width 21.1 % (11.5-14.5); White Blood Count 11.8 K/mm3 (4.5-10.0)
[2022-03-29] MEDS: FUROSEMIDE INJ 40 MG/4 ML VIAL IV PUSH ×2 (12:41→22:48)
[2022-03-29 12:52] LABS: NT Pro B Type Natriuretic Pept 18900 pg/mL (19.9-100)
[2022-03-29 12:53] LABS: INR 1.5; Prothrombin Time 17.2 Seconds (11.1-14.7)
[2022-03-29 12:55] LABS: Alanine Aminotransferase 53 U/L (6-50); Albumin Level 4.1 g/dL (3.5-5.1); Alkaline Phosphatase 185 U/L (38-126); Anion Gap 6 mmol/L (8-16); Aspartate Amino Transferase 64 U/L (17-59); Bilirubin,Total 0.9 mg/dL (0.2-1.3); Blood Urea Nitrogen 20 mg/dL (9-20); Calcium 8.9 mg/dL (8.4-10.2); Carbon Dioxide 25 mmol/L (22-30); Chloride 99 mmol/L (98-107); Estimated CRCL calculation 80 ml/min; Estimated Glomerular Filt Rate > 60; Glucose 102 mg/dL (65-110); Potassium 4.2 mmol/L (3.4-5.0); Sodium 130 mmol/L (137-145)
[2022-03-29] MEDS: carvediloL 12.5 MG TABLET PO (13:06)
[2022-03-29 13:16] LABS: NT Pro B Type Natriuretic Pept 19600 pg/mL (19.9-100); Troponin I 0.041 ng/mL (0.000-0.034)
--- NOTE | 2022-03-29 13:30 | PM.IMHP ---
H&P: HPI History of Present Illness Date/Time: 03/29/22 13:30 Chief Complaint: Shortness of breath. Narrative: This is an unfortunate 46-year-old male smoker with ongoing methamphetamine use, alcohol abuse of which he has abstained for over a year, and heart failure with reduced ejection fraction (EF less than 15% on echo in December 2021) who presented to the emergency department from home for evaluation of chest pain and shortness of breath. Patient provides the following history. His quality of life is poor and he has chronic shortness of breath to the point where he is unable to speak in full sentences at baseline. Despite this he has been unable to keep the methamphetamine habit. He has difficulties eating and sleeping due to shortness of breath. 2 weeks ago he took off his life vest and couple of days ago he stopped taking his medications. He denies harmful thoughts and suicidal ideation and he tells me that he took off the life vest and stopped taking his medications because he is tired of dealing with all of his cardiac issues. In the last 2 days he has had increasing edema, worsening shortness of breath, intermittent stabbing pain in the left anterior chest, orthopnea, emesis x1, and a mild nonproductive cough. He is now seeking care because he feels so poorly. HeHe was tachycardic on arrival to the ED. Blood pressures have been stable. Labs were significant for a WBC of 11.8, sodium 130, AST 64, ALT 53, alkaline phosphatase 185, troponin 0.041, proBNP 61737. Chest x-ray showed Bilateral perihilar and basilar airspace disease which may represent edema or pneumonia. He is being admitted in this setting for further care. Review of Systems Review of Systems: Twelve systems were reviewed. No syncope or near syncope. He denies fever, chills, and sweats. No sinus congestion or sore throat. No sick contacts. He denies sensations of racing heart. No diarrhea. Except as documented, all other systems were reviewed and are negative. [facility] Past Medical History Medical History (Updated 03/29/22 @ 21:29 by Tamara Oshea PA-C) Bipolar 1 disorder Congestive heart failure with left ventricular systolic dysfunction (LVSD) Heart failure with reduced ejection fraction EF less than 15% in December 2021. Hyperlipidemia Hypertension Polysubstance use disorder Tobacco abuse Surgical History Surgical History (Updated 03/29/22 @ 21:22 by Tamara Oshea PA-C) History of ankle surgery Right ankle x2 History of hand surgery Family History Family History Father Heart disease Hypertension Cancer Mother Unknown family medical history Social History Social History (Updated 03/29/22 @ 21:24 by Tamara Oshea PA-C) Social History: Surrogate medical decision maker: Amaris Herman, significant other. Code status: Full code Smoking packs per day: 0.5 Smoking cigarettes per day: 10.0 Years smoked: 37 Smoking pack-years: 18.50 Smoking status: Current every day smoker Tobacco type: cigarettes Second hand tobacco smoke exposure: Yes Alcohol intake: former Alcohol use details: History of alcohol abuse, abstained for greater than 1 year as of March 2022. Substance use: current Substance use type: amphetamines Last use: 03/29/2022 Lack of Transportation: YES Lack of Food: Never True Current Housing: I Have Housing Concerned About Future Housing: No Difficulty Paying Gas/Electric Bills: No Difficulty Paying for Meds: No Currently Unemployed: YES Education: Grade School Difficulty w/ Childcare or Family Care: No Additional living arrangements comments: Lives with significant other and children in [place]. Spiritual care concerns: No Meds Home Medications and Allergies Home Medications Medication Instructions Recorded Confirmed Type furosemide 40 mg tablet 40 mg PO DAILY 01/06/22 02/28/22 History jett
[2022-03-29 13:35] LABS: Barbiturate Screen Urine Negative (Negative); Benzodiazepines Screen Urine Negative (Negative); Cannabinoid Screen Urine Negative (Negative); Cocaine Screen Urine Negative (Negative); Methadone Screen Urine Negative (Negative); Opiate Screen Urine Negative (Negative); Phencyclidine Screen Urine Negative (Negative)
[2022-03-29 13:42] LABS: Magnesium 1.9 mg/dL (1.6-2.3)
[2022-03-29] MEDS: ASPIRIN 81 MG CHEWABLE TABLET 324 MG PO (13:45)
[2022-03-29 13:50] LABS: Influenza A QL RT-PCR Negative (Negative); Influenza B QL RT-PCR Negative (Negative); SARS-CoV-2 RNA PCR Negative
[2022-03-29] MEDS: SACUBITRIL/VALSARTAN 24-26 MG TABLET 1 TAB PO (14:04)
[2022-03-29 14:18] LABS: Amphetamine Screen Urine Positive (Negative)
--- NOTE | 2022-03-29 16:42 | ADMGEN ---
This patient, Enrique Nichols, was admitted to IMU Room 206-01 T 1630 ON march. Patient/family oriented to hospital policies and general routines including ID bracelet, bed and alarms, visiting hours, pain management, procedures, bathroom and other care routines, personal items, smoking policy, room service/diet, and visiting hours. Information on how to activate the Rapid Response Team has been discussed. Patient/Family are encouraged to report perceived risks to care and to ask questions if they do not understand what they are told or what they should do.
[2022-03-29 17:34] LABS: Troponin I 0.061 ng/mL (0.000-0.034)
[2022-03-29 20:31] LABS: Troponin I 0.043 ng/mL (0.000-0.034)
[2022-03-29] MEDS: ALPRAZolam (*CRX) 0.25 MG TABLET PO (22:47)
[2022-03-29] MEDS: MORPHINE SULFATE (*CRX) 2 MG/ML INJ IV PUSH (22:48)
[2022-03-30] VITALS (19 sets, daily range): BP systolic 99–154; BP diastolic 57–110; PULSE 68–114; RESP 14–40; TEMP 36.4–37.6; O2SAT 87–98
[2022-03-30] MEDS: MORPHINE SULFATE (*CRX) 2 MG/ML INJ IV PUSH ×2 (04:33→11:09)
[2022-03-30 05:14] LABS: Basophils Percent Auto 0.4 % (0.2-1.2); Eosinophils Absolute Auto 0.2 K/mm3 (0-0.3); Eosinophils Percent Auto 1.8 % (0-4.4); Hematocrit 46.1 % (42.0-52.0); Hemoglobin 13.5 g/dL (14.0-18.0); Immature Granulocyte Absolute 0.05 K/mm3 (0.00-0.031); Immature Granulocyte Percent A 0.5 % (0-0.5); Lymphocytes Absolute Auto 2.05 K/mm3 (0.9-3.2); Lymphocytes Percent Auto 19.3 % (18.3-44.2); Mean Corpuscular HGB Conc 29.3 g/dl (32-36); Mean Corpuscular Hemoglobin 22.4 pg (26-34); Mean Corpuscular Volume 76.3 fl (80-100); Mean Platelet Volume 9.4 fl (7.4-10.4); Monocytes Absolute Auto 1.5 K/mm3 (0.1-0.6); Monocytes Percent Auto 14.2 % (2.6-8.5); Neutrophils Absolute Auto 6.8 K/mm3 (1.3-6.7); Neutrophils Percent Auto 63.8 % (45.5-73.1); Nucleated Red Blood Cells Perc 0.2 % (0.0-0.2); Platelet Count Result 315 k/mm3 (150-375); Red Blood Count 6.04 M/mm3 (4.6-6.20); Red Cell Distribution Width 21.2 % (11.5-14.5); White Blood Count 10.6 K/mm3 (4.5-10.0)
[2022-03-30 05:28] LABS: Alanine Aminotransferase 50 U/L (6-50); Albumin Level 3.5 g/dL (3.5-5.1); Alkaline Phosphatase 168 U/L (38-126); Anion Gap 4 mmol/L (8-16); Aspartate Amino Transferase 55 U/L (17-59); Bilirubin,Total 0.8 mg/dL (0.2-1.3); Blood Urea Nitrogen 26 mg/dL (9-20); CRP 6.5 mg/dL (<1.0); Calcium 7.9 mg/dL (8.4-10.2); Carbon Dioxide 32 mmol/L (22-30); Chloride 96 mmol/L (98-107); Estimated CRCL calculation 10 ml/min; Estimated Glomerular Filt Rate > 60; Glucose 73 mg/dL (65-110); Magnesium 1.6 mg/dL (1.6-2.3); Potassium 3.5 mmol/L (3.4-5.0); Sodium 132 mmol/L (137-145)
[2022-03-30 05:44] LABS: Platelet Estimate Adequate (Adequate)
[2022-03-30 05:45] LABS: Microcytosis 1+ (NORMAL); Procalcitonin 0.1 ng/mL
[2022-03-30 05:46] LABS: Poikilocytosis 1+ (NORMAL)
[2022-03-30 05:55] LABS: Schistocytes None Seen (NORMAL)
[2022-03-30] MEDS: ALPRAZolam (*CRX) 0.25 MG TABLET PO ×3 (06:56→22:10)
[2022-03-30] MEDS: FUROSEMIDE INJ 40 MG/4 ML VIAL IV PUSH ×2 (08:16→17:34)
--- NOTE | 2022-03-30 08:23 | PM.CNCAR ---
Assessment and Plan Assessment and plan (1) Heart failure with reduced ejection fraction: Code(s): I50.20 - Unspecified systolic (congestive) heart failure Status: Acute Assessment and Plan: Acute on chronic decompensated systolic heart failure in the setting of methamphetamine use and medication noncompliance. Agree with IV diuresis. Continue furosemide 40 mg IV b.i.d.. He is on a good outpatient medical regimen for his cardiomyopathy-would recommend to continue Entresto, Coreg, Jardiance, spironolactone as BP tolerates Low Na diet Fluid restriction Daily weights Accurate I&O Unfortunately with his continued medical noncompliance and drug abuse this clinical scenario will continue to present itself Encourage medical compliance and cessation of drug use History of Present Illness History of Present Illness Consult date/time: 03/30/22 08:23 Requesting physician: Rafal Perez DO Consult reason: congestive heart failure Reason For Visit: CHF, Chest Pain Narrative: Mr. Nichols is a 46-year-old male with a past medical history of methamphetamine use and systolic heart failure with severely reduced ejection fraction around 15%. He has had multiple recent hospitalizations for acute on chronic decompensated heart failure. He presents to the hospital now with complaints of shortness of breath, lower extremity swelling, and chest pain. The symptoms have been ongoing for about 3 days. He states that he has not taken any of his medications for a couple of weeks. He has been admitted to the IMU for management of his decompensated heart failure. At the time of my interview he is sleeping but awakens to my voice and appears comfortable though slightly tachypneic. He continues to complain of shortness of breath and chest pain that worsens with coughing or deep breathing. Review of Systems Constitutional: Constitutional: Denies chills, Denies fever(s), Denies headache(s) and Denies malaise Eyes: Eyes: Denies change in vision ENT: Reports Normal hearing present, Denies dizziness, Denies headache(s) and Denies hearing loss Cardiovascular: Cardiovascular: Reports chest pain, Reports chest pain at rest, Denies chest pain with activity, Denies syncope, Reports pedal edema, Reports leg edema, Denies palpitations, Reports dyspnea and Reports dyspnea on exertion Respiratory: Respiratory: Reports cough, Reports dyspnea, Reports dyspnea on exertion and Denies wheezing Gastrointestinal: Gastrointestinal: Denies abdominal pain, Denies constipation and Denies diarrhea Genitourinary: Genitourinary: Denies hematuria and Denies dysuria Musculoskeletal: Musculoskeletal: Denies myalgias, Denies arthralgias and Denies muscle cramps Integumentary/Breasts: Skin/Breast: Denies wounds Neurologic: Reports Normal hearing present, Denies confusion, Denies dizziness, Denies syncope and Denies headache(s) Psychiatric: Psychiatric: Denies anxiety, Denies confusion and Denies depression Endocrine: Endocrine: Denies cold intolerance, Denies flushing, Denies heat intolerance and Denies palpitations Hematologic/Lymphatic: Hematologic/Lymphatic: Denies easy bleeding and Denies easy bruising Allergic/Immunologic: Allergic/Immunologic: Denies wheezing PMFSH Past Medical History Medical History Bipolar 1 disorder Congestive heart failure with left ventricular systolic dysfunction (LVSD) Heart failure with reduced ejection fraction EF less than 15% in December 2021. Hyperlipidemia Hypertension Polysubstance use disorder Tobacco abuse Surgical History Surgical History History of ankle surgery Right ankle x2 History of hand surgery Family History Family History Father Heart disease Hypertension Cancer Mother Unknown family medical history Social History
--- NOTE | 2022-03-30 11:38 | PM.IMPN ---
Progress Note: A&P Assessment and Plan (1) Acute on chronic systolic congestive heart failure: Code(s): I50.23 - Acute on chronic systolic (congestive) heart failure Status: Acute (2) Noncompliance w/medication treatment due to intermit use of medication: Code(s): Z91.14 - Patient's other noncompliance with medication regimen Status: Acute (3) Abnormal chest x-ray: Code(s): R93.89 - Abnormal findings on diagnostic imaging of other specified body structures Status: Acute (4) Elevated LFTs: Code(s): R79.89 - Other specified abnormal findings of blood chemistry Status: Acute (5) Hyponatremia: Code(s): E87.1 - Hypo-osmolality and hyponatremia Status: Acute (6) Elevated troponin: Code(s): R77.8 - Other specified abnormalities of plasma proteins Status: Acute (7) Methamphetamine abuse: Code(s): F15.10 - Other stimulant abuse, uncomplicated Status: Acute (8) Tobacco abuse: Code(s): Z72.0 - Tobacco use Status: Acute Plan chest pain/shortness of breath flu/COVID negative chest x-ray with bilateral perihilar and basilar airspace disease may represent edema or pneumonia. EKG with sinus tachycardia. Treated as congestive heart failure with IV diuresis chest pain worsened this am, ekg with no acute st t chagnes. trops same. cxr repaet with diffuse lung disea, consistent with pneumonia and /or pulmonary edema. improved pain is iv morphine. nitro did not hlep. cta neg for pe. noted pneuomnia. pen allergy. will add doxycycline Medical noncompliance Acute on chronic systolic congestive Heart failure . Elevated BNP at 19,000. Stopped medication 2 weeks ago. Restarted on Entresto Coreg Jardiance spironolactone. EF 15% Mildly elevated troponin not suggestive of ACS Elevated LFTs likely due to passive hepatic congestion Mild hyponatremia Anxiety disorder Alcohol and methamphetamine use DVT prophylaxis Code status full code cct 35 mins Subjective Date/time seen: 03/30/22 11:38 Interval history: was having severe 10/10 chest pain when seen. he located his chest pain at left lower chest. nitro was given x 3 without relief. ekg with no significant change from previous ekg. trop drawan. cxr with congestive changes. discussed cta to rule out pe, which was reveiwe didier dnoted multifocal pneumonia. chest pain improved somewhat with iv morphine later. Review of Systems Review of Systems: All systems reviewed & are unremarkable except as noted in HPI and below Exam Narrative: General: Chronically ill-appearing gentleman layin gin bed, in distress [facility] pain HEENT: PERRL, EOMI. Sclera anicteric. Tacky mucous membranes. Neck: Supple. No obvious JVD, exam limited due to positioning. Respiratory: Mildly tachypneic with conversational dyspnea. Bibasilar crackles noted. Occasional dry cough. tende rleft lower chest wall Cardiovascular: Tachycardic with S1-S2. Gastrointestinal: Abdomen is soft and nontender with positive bowel sounds. Skin: Warm and dry. Tattoos noted. Extremities: No cyanosis or clubbing. Pitting edema up to the thighs. No knots or cords obvious. Negative [place] sign bilaterally. Neurological: Alert. Cranial nerves 2-12 are grossly intact. No gross focal deficits to casual conversation. Psychiatric: Cooperative. Appropriate mood. in distress Objective Data Vital Signs Vital Signs: Vital Signs - 24 hr 03/29/22 12:07 03/29/22 12:13 03/29/22 12:47 Temperature 97.8 F Pulse Rate 126 H 124 H 122 H Respiratory Rate 30 H 19 Blood Pressure 134/111 H 133/96 H Pulse Oximetry 100 95 Oxygen Delivery Room Air 03/29/22 13:06 03/29/22 13:40 03/29/22 14:22 Temperature Pulse Rate 126 H 116 H 98 Respiratory Rate 18 18 Blood Pressure 115/86 112/95 H Pulse Oximetry 96 100 Oxygen Delivery 03/29/22 16:02 03/29/22 16:43 03/29/22 18:00 Temperature Pulse Rate 89 88 95 Respiratory Rate 18 B
--- NOTE | 2022-03-30 11:43 | ECG_ITS ---
Measurements Intervals [place] Rate: 114 P: 50 [place]: 155 QRS: 21 QRSD: 114 T: 89 QT: 347 QTc: 479 Interpretive Statements SINUS TACHYCARDIA LEFT ATRIAL ENLARGEMENT INCOMPLETE LEFT BUNDLE BRANCH BLOCK POOR R WAVE PROGRESSION, CONSIDER ANTERIOR INFARCT BORDERLINE ST-T WAVE ABNORMALITY- INF/LAT LEADS BASELINE ARTIFACT- I, II ,III, AVR, AVL, AVF, V1-V6 ABNORMAL ECG COMPARED TO ECG 03/29/2022 12:08:35 NO SIGNIFICANT CHANGES Electronically Signed On 03-30-2022 14:15:55 RUSSIAN HISTORY PROFESSOR by Cecil Ashton D.O.
[2022-03-30] MEDS: NITROGLYCERIN SL 0.4 MG TABLET SUBLINGUAL ×3 (11:51→12:03)
[2022-03-30] MEDS: MORPHINE SULFATE (*CRX) 4 MG/ML INJ IV PUSH (12:04)
[2022-03-30] MEDS: ASPIRIN 81 MG ENTERIC TABLET PO (12:49)
[2022-03-30] MEDS: carvediloL 12.5 MG TABLET PO ×2 (12:55→19:47)
[2022-03-30 13:00] LABS: Troponin I 0.035 ng/mL (0.000-0.034)
[2022-03-30] MEDS: SACUBITRIL/VALSARTAN 24-26 MG TABLET 1 TAB PO (17:34)
[2022-03-30] MEDS: DOXYCYCLINE 100 MG/NS 100 ML 100 MG/100 ML BAG IVPB (17:34)
[2022-03-30] MEDS: MORPHINE SULFATE (*CRX) 2 MG/ML INJ 4 MG IV PUSH (19:45)
[2022-03-31] VITALS (18 sets, daily range): BP systolic 95–146; BP diastolic 52–84; PULSE 54–101; RESP 20–28; TEMP 36.2–37.1; O2SAT 92–100
[2022-03-31] MEDS: MORPHINE SULFATE (*CRX) 2 MG/ML INJ 4 MG IV PUSH ×2 (02:27→11:09)
[2022-03-31 05:06] LABS: Basophils Percent Auto 0.3 % (0.2-1.2); Eosinophils Absolute Auto 0.2 K/mm3 (0-0.3); Eosinophils Percent Auto 1.3 % (0-4.4); Hematocrit 42.5 % (42.0-52.0); Hemoglobin 12.7 g/dL (14.0-18.0); Immature Granulocyte Absolute 0.05 K/mm3 (0.00-0.031); Immature Granulocyte Percent A 0.4 % (0-0.5); Lymphocytes Absolute Auto 2.13 K/mm3 (0.9-3.2); Lymphocytes Percent Auto 17.8 % (18.3-44.2); Mean Corpuscular HGB Conc 29.9 g/dl (32-36); Mean Corpuscular Hemoglobin 22.7 pg (26-34); Mean Platelet Volume 9.1 fl (7.4-10.4); Monocytes Absolute Auto 1.8 K/mm3 (0.1-0.6); Monocytes Percent Auto 15.3 % (2.6-8.5); Neutrophils Absolute Auto 7.8 K/mm3 (1.3-6.7); Neutrophils Percent Auto 64.9 % (45.5-73.1); Nucleated Red Blood Cells Perc 0.2 % (0.0-0.2); Platelet Count Result 295 k/mm3 (150-375); Red Blood Count 5.59 M/mm3 (4.6-6.20); Red Cell Distribution Width 20.5 % (11.5-14.5)
[2022-03-31] MEDS: DOXYCYCLINE 100 MG/NS 100 ML 100 MG/100 ML BAG IVPB ×2 (05:16→17:29)
[2022-03-31 05:29] LABS: Alanine Aminotransferase 58 U/L (6-50); Albumin Level 3.1 g/dL (3.5-5.1); Alkaline Phosphatase 160 U/L (38-126); Anion Gap 5 mmol/L (8-16); Aspartate Amino Transferase 66 U/L (17-59); Bilirubin,Total 0.7 mg/dL (0.2-1.3); Blood Urea Nitrogen 38 mg/dL (9-20); Calcium 7.6 mg/dL (8.4-10.2); Carbon Dioxide 30 mmol/L (22-30); Chloride 93 mmol/L (98-107); Estimated CRCL calculation 7 ml/min; Estimated Glomerular Filt Rate 46; Glucose 110 mg/dL (65-110); Magnesium 1.8 mg/dL (1.6-2.3); Potassium 4.1 mmol/L (3.4-5.0); Sodium 128 mmol/L (137-145)
[2022-03-31] MEDS: SPIRONOLACTONE 25 MG TABLET PO (08:09)
[2022-03-31] MEDS: MAGNESIUM OXIDE 400 MG TABLET PO (08:09)
[2022-03-31] MEDS: SACUBITRIL/VALSARTAN 24-26 MG TABLET 1 TAB PO (08:09)
[2022-03-31] MEDS: FUROSEMIDE INJ 40 MG/4 ML VIAL IV PUSH (08:09)
[2022-03-31] MEDS: EMPAGLIFLOZIN 10 MG TABLET PO (08:10)
[2022-03-31] MEDS: carvediloL 12.5 MG TABLET PO ×2 (08:10→21:03)
[2022-03-31] MEDS: ALPRAZolam (*CRX) 0.25 MG TABLET PO ×2 (08:11→17:44)
[2022-03-31] MEDS: ATORVASTATIN 10 MG TABLET PO (08:11)
[2022-03-31] MEDS: ASPIRIN 81 MG ENTERIC TABLET PO (08:11)
[2022-03-31] MEDS: ACETAMINOPHEN 325 MG TABLET 650 MG PO (08:11)
--- NOTE | 2022-03-31 09:21 | PC.NURSE ---
Pt reports continued stabbing right sided chest pain. PRN xanax and Tylenol given at 0811. Reports pain 12/08. BP 103/76. Pt also received lasix this morning. Dr. Minaya made aware. New orders noted.
--- NOTE | 2022-03-31 10:04 | PM.PNCARD ---
Progress Note: A&P Assessment and Plan (1) Heart failure with reduced ejection fraction: Code(s): I50.20 - Unspecified systolic (congestive) heart failure Status: Acute Assessment and Plan: Acute on chronic decompensated systolic heart failure in the setting of methamphetamine use and medication noncompliance. Agree with IV diuresis. Continue furosemide 40 mg IV b.i.d.. Low Na diet Fluid restriction Daily weights Accurate I&O Unfortunately with his continued medical noncompliance and drug abuse this clinical scenario will continue to present itself Encourage medical compliance and cessation of drug use Subjective Date/time seen: 03/31/22 10:04 Cardiology follow up for CHF Still complaining of shortness of breath, a little worse today than yesterday. Also still has continuous chest discomfort worse with coughing and deep breathing Review of Systems Constitutional: Constitutional: Denies chills, Denies fever(s), Denies headache(s) and Denies malaise Eyes: Eyes: Denies change in vision ENT: Reports Normal hearing present, Denies dizziness, Denies headache(s) and Denies hearing loss Cardiovascular: Cardiovascular: Reports chest pain, Reports chest pain at rest, Denies chest pain with activity, Denies syncope, Reports pedal edema, Reports leg edema, Denies palpitations, Reports dyspnea and Reports dyspnea on exertion Respiratory: Respiratory: Reports cough, Reports dyspnea, Reports dyspnea on exertion and Denies wheezing Gastrointestinal: Gastrointestinal: Denies abdominal pain, Denies constipation and Denies diarrhea Genitourinary: Genitourinary: Denies hematuria and Denies dysuria Musculoskeletal: Musculoskeletal: Denies myalgias, Denies arthralgias and Denies muscle cramps Integumentary/Breasts: Skin/Breast: Denies wounds Neurologic: Reports Normal hearing present, Denies confusion, Denies dizziness, Denies syncope and Denies headache(s) Psychiatric: Psychiatric: Denies anxiety, Denies confusion and Denies depression Endocrine: Endocrine: Denies cold intolerance, Denies flushing, Denies heat intolerance and Denies palpitations Hematologic/Lymphatic: Hematologic/Lymphatic: Denies easy bleeding and Denies easy bruising Allergic/Immunologic: Allergic/Immunologic: Denies wheezing Exam Const: General: comfortable, no acute distress, alert and awake; No confusion Orientation/consciousness: patient oriented x3 and No confusion HENMT: Head: normal to inspection Eyes: General: appearance normal, both eyes and all related structures Pupils: Equal, round and reactive pupils present Neck: Neck: normal visual inspection, supple and no JVD Carotids: normal carotid upstroke Resp: Effort & Inspection: normal respiratory effort Auscultation: crackles Cardio: Rate: tachycardic Rhythm: regular rhythm Heart sounds: S1 normal heart sound present, S2 normal heart sound present and no murmurs GI: Auscultation: normal bowel sounds Skin: General skin exam: normal color Neuro: General: patient oriented x3 and No confusion Cranial nerves: Yes Equal, round and reactive pupils present and Yes Normal hearing present Extrem: General: normal to inspection Other: mild bilateral LE edema Psych: Appearance: grossly normal Mental Status: mental status grossly normal Objective Data Vital Signs Vital Signs: Vital Signs - 24 hr 03/30/22 12:55 03/30/22 11:50 03/30/22 11:55 Temperature 37.6 C H Pulse Rate 101 H 114 H 114 H Respiratory Rate 40 H Blood Pressure 154/110 H 133/104 H Pulse Oximetry 95 Oxygen Delivery 03/30/22 11:57 03/30/22 12:00 03/30/22 12:10 Temperature Pulse Rate 114 H 114 H 108 H Respiratory Rate Blood Pressure 130/96 H 136/97 H 103/83 Pulse Oximetry Oxygen Delivery 03/30/22 12:00 03/30/22 14:00 03/30/22 12:00 Temperature Pulse Rate 110 H 91 110 H Respiratory Rate Blood Pressure Pulse Oximetry Oxygen Delivery Room Air 03/03
--- NOTE | 2022-03-31 13:27 | PM.IMPN ---
Progress Note: A&P Assessment and Plan (1) Acute on chronic systolic congestive heart failure: Code(s): I50.23 - Acute on chronic systolic (congestive) heart failure Status: Acute (2) Noncompliance w/medication treatment due to intermit use of medication: Code(s): Z91.14 - Patient's other noncompliance with medication regimen Status: Acute (3) Abnormal chest x-ray: Code(s): R93.89 - Abnormal findings on diagnostic imaging of other specified body structures Status: Acute (4) Elevated LFTs: Code(s): R79.89 - Other specified abnormal findings of blood chemistry Status: Acute (5) Hyponatremia: Code(s): E87.1 - Hypo-osmolality and hyponatremia Status: Acute (6) Elevated troponin: Code(s): R77.8 - Other specified abnormalities of plasma proteins Status: Acute (7) Methamphetamine abuse: Code(s): F15.10 - Other stimulant abuse, uncomplicated Status: Acute (8) Tobacco abuse: Code(s): Z72.0 - Tobacco use Status: Acute Plan chest pain/shortness of breath flu/COVID negative chest x-ray with bilateral perihilar and basilar airspace disease may represent edema or pneumonia. EKG with sinus tachycardia. Treated as congestive heart failure with IV diuresis . chest pain worsened 03/30/2022, ekg with no acute st t chagnes. trops same. cxr repaet with diffuse lung disea, consistent with pneumonia and /or pulmonary edema. improved pain is iv morphine. nitro did not hlep. cta neg for pe. noted pneuomnia. pen allergy. started on doxycycline. Will hold off on diuresis further also IV morphine. Due to hypotension. Oral [place] for pain control IV Tylenol p.r.n. Medical noncompliance Acute on chronic systolic congestive Heart failure . Elevated BNP at 19,000. Stopped medication 2 weeks ago. Restarted on Entresto Coreg Jardiance spironolactone. EF 15% CTA did not show congestive changes are does have cardiomegaly noted. Will continue diuresis however due to acute on chronic renal failure will hold off on diuresis today ALTON: Worsened today to 1.6 with diuresis. Will hold further IV diuresis. Recheck in a.m. if improved start oral diuretics Mildly elevated troponin not suggestive of ACS Elevated LFTs likely due to passive hepatic congestion . Slightly worse today likely due to hypotension Mild hyponatremia worsened today will continue to monitor Anxiety disorder Alcohol and methamphetamine use DVT prophylaxis Code status full code Subjective Date/time seen: 03/31/22 13:27 Interval history: patient seen and examined. Discussed with nursing staff. Reported to have pain in the chest blood pressure on the lower side. Placed on oxygen 2 L because of mild hypoxia. Denies any abdominal pain. Reports ate his breakfast this morning. Review of Systems Review of Systems: All systems reviewed & are unremarkable except as noted in HPI and below Exam Narrative: General: Chronically ill-appearing gentleman layin gin bed, A bit somnolent but wakes up easily HEENT: PERRL, EOMI. Sclera anicteric. Tacky mucous membranes. Neck: Supple. No obvious JVD, exam limited due to positioning. Respiratory: Mildly tachypneic with conversational dyspnea. diminished breath sounds bilaterally.Occasional dry cough. tende rleft lower chest wall Cardiovascular: Tachycardic with S1-S2. Gastrointestinal: Abdomen is soft and nontender with positive bowel sounds. Skin: Warm and dry. Tattoos noted. Extremities: No cyanosis or clubbing. Pitting edema up to the thighs. No knots or cords obvious. Neurological: Alert. Cranial nerves 2-12 are grossly intact. No gross focal deficits to casual conversation. Psychiatric: Cooperative. Appropriate mood. Objective Data Vital Signs Vital Signs: Vital Signs - 24 hr 03/30/22 14:00 03/30/22 16:00 03/30/22 16:00 Temperature 98.3 F Pulse Rate 91 86 88 Respiratory Rate 21 H Blood Pressure 122/105 H Pulse O
[2022-03-31] MEDS: HYDROcodone/acetaminophen (*CRX) 10-325 MG TABLET 1 TAB PO (17:44)
[2022-03-31] MEDS: KETOROLAC 30 MG/ML VIAL (*BKC) IV PUSH (21:55)
[2022-03-31] MEDS: hydrOXYzine HCL 25 MG TABLET 50 MG PO (22:01)
[2022-04-01] VITALS (15 sets, daily range): BP systolic 88–116; BP diastolic 60–77; PULSE 68–89; RESP 20–28; TEMP 36–36.6; O2SAT 85–100
[2022-04-01] MEDS: HYDROcodone/acetaminophen (*CRX) 10-325 MG TABLET 1 TAB PO ×4 (00:14→19:42)
[2022-04-01 04:26] LABS: Basophils Percent Auto 0.2 % (0.2-1.2); Eosinophils Absolute Auto 0.2 K/mm3 (0-0.3); Eosinophils Percent Auto 1.4 % (0-4.4); Hematocrit 41.3 % (42.0-52.0); Hemoglobin 12.3 g/dL (14.0-18.0); Immature Granulocyte Absolute 0.08 K/mm3 (0.00-0.031); Immature Granulocyte Percent A 0.6 % (0-0.5); Lymphocytes Absolute Auto 1.47 K/mm3 (0.9-3.2); Lymphocytes Percent Auto 10.7 % (18.3-44.2); Mean Corpuscular HGB Conc 29.8 g/dl (32-36); Mean Corpuscular Hemoglobin 22.2 pg (26-34); Mean Corpuscular Volume 74.4 fl (80-100); Mean Platelet Volume 9.5 fl (7.4-10.4); Monocytes Absolute Auto 1.8 K/mm3 (0.1-0.6); Neutrophils Absolute Auto 10.2 K/mm3 (1.3-6.7); Neutrophils Percent Auto 74.1 % (45.5-73.1); Platelet Count Result 278 k/mm3 (150-375); Red Blood Count 5.55 M/mm3 (4.6-6.20); White Blood Count 13.8 K/mm3 (4.5-10.0)
[2022-04-01 04:37] LABS: Alanine Aminotransferase 50 U/L (6-50); Albumin Level 3.1 g/dL (3.5-5.1); Alkaline Phosphatase 185 U/L (38-126); Anion Gap 6 mmol/L (8-16); Aspartate Amino Transferase 44 U/L (17-59); Bilirubin,Total 0.9 mg/dL (0.2-1.3); Blood Urea Nitrogen 44 mg/dL (9-20); Calcium 7.6 mg/dL (8.4-10.2); Carbon Dioxide 30 mmol/L (22-30); Chloride 94 mmol/L (98-107); Estimated CRCL calculation 63 ml/min; Estimated Glomerular Filt Rate 46; Glucose 119 mg/dL (65-110); Magnesium 2.2 mg/dL (1.6-2.3); Potassium 3.9 mmol/L (3.4-5.0); Sodium 130 mmol/L (137-145)
[2022-04-01 05:24] LABS: Schistocytes None Seen (NORMAL)
[2022-04-01 05:27] LABS: Platelet Estimate Adequate (Adequate)
[2022-04-01] MEDS: DOXYCYCLINE 100 MG/NS 100 ML 100 MG/100 ML BAG IVPB ×2 (06:14→17:00)
[2022-04-01] MEDS: ASPIRIN 81 MG ENTERIC TABLET PO (09:18)
[2022-04-01] MEDS: ATORVASTATIN 10 MG TABLET PO (09:18)
[2022-04-01] MEDS: ALPRAZolam (*CRX) 0.25 MG TABLET PO ×2 (09:18→13:09)
[2022-04-01] MEDS: MAGNESIUM OXIDE 400 MG TABLET PO (09:18)
[2022-04-01] MEDS: EMPAGLIFLOZIN 10 MG TABLET PO (09:18)
--- NOTE | 2022-04-01 12:45 | PM.PNCARD ---
Progress Note: A&P Assessment and Plan (1) Heart failure with reduced ejection fraction: Code(s): I50.20 - Unspecified systolic (congestive) heart failure Status: Acute Assessment and Plan: Acute on chronic decompensated systolic heart failure in the setting of methamphetamine use and medication noncompliance. Lasix is on hold now due to rising Cr. Patient still reporting shortness of breath, will obtain CXR. Due to concern for BP, he was started on Midodrine by Hospitalist. I will hold his Entresto and Spironolactone for now. Low Na diet Fluid restriction Daily weights Accurate I&O Unfortunately with his continued medical noncompliance and drug abuse this clinical scenario will continue to present itself Encourage medical compliance and cessation of drug use Patient is interested in hospice. Recommend hospice consultation. Subjective Date/time seen: 04/01/22 12:45 Interval history: Reason for visit: Acute decompensated heart failure HPI: Mr. Nichols is a 46-year-old male with a past medical history of methamphetamine use and systolic heart failure with severely reduced ejection fraction around 15%.? He has had multiple recent hospitalizations for acute on chronic decompensated heart failure.? He presents to the hospital now with complaints of shortness of breath, lower extremity swelling, and chest pain.? The symptoms have been ongoing for about 3 days.? He states that he has not taken any of his medications for a couple of weeks.? He has been admitted to the IMU for management of his decompensated heart failure.? At the time of my interview he is sleeping but awakens to my voice and appears comfortable though slightly tachypneic.? He continues to complain of shortness of breath and chest pain that worsens with coughing or deep breathing.? Date of service 04/01: Patient reports continued shortness of breath. No chest pain. Slightly tachypneic. Patient is interested in hospice. Review of Systems Review of Systems: 8-point ROS obtained. Negative, unless stated in HPI. Exam Const: General: comfortable, no acute distress, alert and awake Orientation/consciousness: patient oriented x3 HENMT: Head: normal to inspection Eyes: General: appearance normal, both eyes and all related structures Neck: Neck: normal visual inspection and supple Resp: Effort & Inspection: normal respiratory effort Auscultation: crackles Cardio: Rate: tachycardic Rhythm: regular rhythm Heart sounds: S1 normal heart sound present, S2 normal heart sound present and no murmurs GI: Auscultation: normal bowel sounds Skin: General skin exam: normal color Neuro: General: patient oriented x3 Extrem: General: normal to inspection Other: mild bilateral LE edema Psych: Appearance: grossly normal Mental Status: mental status grossly normal Objective Data Vital Signs Vital Signs: Vital Signs - 24 hr 03/31/22 14:00 03/31/22 16:00 03/31/22 16:00 Temperature 36.9 C Pulse Rate 74 80 82 Respiratory Rate 26 H Blood Pressure 105/68 Pulse Oximetry 97 Oxygen Delivery Oxygen Flow Rate Fraction of Inspired Oxygen 03/31/22 16:00 03/31/22 18:00 03/31/22 20:00 Temperature 36.2 C L Pulse Rate 78 76 Respiratory Rate 26 H Blood Pressure 95/67 L Pulse Oximetry 97 92 Oxygen Delivery Non-Rebreather Mask Oxygen Flow Rate 2 Fraction of Inspired Oxygen 03/31/22 21:03 03/31/22 20:00 04/01/22 00:00 Temperature 36.0 C L Pulse Rate 84 76 Respiratory Rate 28 H Blood Pressure 102/74 Pulse Oximetry 92 95 Oxygen Delivery Venturi Mask Oxygen Flow Rate 6 Fraction of Inspired Oxygen 04/01/22 00:00 03/31/22 20:00 04/01/22 00:00 Temperature Pulse Rate 79 77 Respiratory Rate Blood Pressure Pulse Oximetry 95 Oxygen Delivery Venturi Mask Oxygen Flow Rate 6 Fraction of Inspired Oxygen 03/31/22 22:00 04/01/22 02:00 04/01/22 04:00 Temperature 36.1 C
[2022-04-01] MEDS: MIDODRINE HCL 2.5 MG TABLET 5 MG PO ×2 (13:56→16:57)
--- NOTE | 2022-04-01 14:55 | PC.NURSE ---
Pt set up for bedside bath by tech. Pt states I'm not taking a horse bath, that's for prostitutes. Pt requesting shower. Informed pt that I would ask the doctor for an order to take telemetry off temporarily for shower. Pt states I'm 46 years old, now I'm being treated like a child. Requested that we wait an hour for physician to clear pt for shower. Pt states You gonna treat me like a d*mn child. [employer] left room. Telemetry taken off and pt ambulated to shower.
--- NOTE | 2022-04-01 15:48 | PM.IMPN ---
Progress Note: A&P Assessment and Plan (1) Heart failure with reduced ejection fraction: Code(s): I50.20 - Unspecified systolic (congestive) heart failure Status: Acute Plan Acute on chronic systolic congestive heart failure: ?Code(s): I50.23 - Acute on chronic systolic (congestive) heart failure ?Status:?Acute (2) Noncompliance w/medication treatment due to intermit use of medication: ?Code(s): Z91.14 - Patient's other noncompliance with medication regimen ?Status:?Acute (3) Abnormal chest x-ray: ?Code(s): R93.89 - Abnormal findings on diagnostic imaging of other specified body structures ?Status:?Acute (4) Elevated LFTs: ?Code(s): R79.89 - Other specified abnormal findings of blood chemistry ?Status:?Acute (5) Hyponatremia: ?Code(s): E87.1 - Hypo-osmolality and hyponatremia ?Status:?Acute (6) Elevated troponin: ?Code(s): R77.8 - Other specified abnormalities of plasma proteins ?Status:?Acute (7) Methamphetamine abuse: ?Code(s): F15.10 - Other stimulant abuse, uncomplicated ?Status:?Acute (8) Tobacco abuse: ?Code(s): Z72.0 - Tobacco use ?Status:?Acute Plan ?chest pain/shortness of breath? flu/COVID negative chest x-ray with bilateral perihilar and basilar airspace disease may represent edema or pneumonia.? EKG with sinus tachycardia.? Treated as congestive heart failure with IV diuresis .? chest pain worsened 03/30/2022, ekg with no acute st t chagnes. trops same. cxr repaet with diffuse lung disea, consistent with pneumonia and /or pulmonary edema. improved pain is iv morphine. nitro did not hlep. cta neg for pe. noted pneuomnia. pen allergy.? started on doxycycline.? Will hold off on diuresis further also IV morphine.? Due to hypotension.? Oral [place] for pain control IV Tylenol p.r.n. Medical noncompliance Acute on chronic systolic congestive Heart failure .? Elevated BNP at 19,000.? Stopped medication 2 weeks ago.? Restarted on Entresto Coreg Jardiance spironolactone.? EF 15% CTA did not show congestive changes are does have? cardiomegaly noted.? Will continue diuresis however due to acute on chronic renal failure will hold off on diuresis today ALTON:? Worsened today to 1.6 with diuresis.? Will hold further IV diuresis.? Recheck in a.m. if improved start oral diuretics Mildly elevated troponin not suggestive of ACS Elevated LFTs likely due to passive hepatic congestion .? Slightly worse today likely due to hypotension Mild hyponatremia? worsened today will continue to monitor Anxiety disorder Alcohol and methamphetamine use DVT prophylaxis Code status full code Patient now wants hospice care, hospice team consulted Subjective Date/time seen: 04/01/22 15:48 Review of Systems Review of Systems: All systems reviewed & are unremarkable except as noted in HPI and below Exam Narrative: General:??Somnolent but awakens to verbal stimulation HEENT:??PERRL, EOMI. Sclera anicteric. Tacky mucous membranes. Neck:??Supple.? No obvious JVD, exam limited due to positioning. Respiratory:??Mildly tachypneic with conversational dyspnea. ? diminished breath sounds bilaterally.Occasional dry cough. tende rleft lower chest wall Cardiovascular:??S1-S2. Gastrointestinal:??Abdomen is soft and nontender with positive bowel sounds. Skin:??Warm and dry. Tattoos noted. Extremities:??No cyanosis or clubbing. Pitting edema up to the thighs.? No knots or cords obvious. Neurological:??easily awaken.? Cranial nerves 2-12 are grossly intact. No gross focal deficits to casual conversation. Psychiatric:??Cooperative.? Appropriate mood. Objective Data Vital Signs Vital Signs: Vital Signs - 24 hr 03/31/22 16:00 03/31/22 16:00 03/31/22 16:00 Temperature 98.4 F Pulse Rate 80 82 Respiratory Rate 26 H Blood Pressure 105/68 Pulse Oximetry 97 97 Oxygen Delivery Non-Rebreather Mask Oxygen Flow Rate 2 Fraction of Inspired Oxygen 03/31/22
[2022-04-01] MEDS: hydrOXYzine HCL 25 MG TABLET 50 MG PO ×2 (16:57→22:04)
[2022-04-01] MEDS: carvediloL 12.5 MG TABLET PO (22:04)
[2022-04-02] VITALS (18 sets, daily range): BP systolic 91–130; BP diastolic 65–85; PULSE 73–90; RESP 18–28; TEMP 36.1–37; O2SAT 93–98
[2022-04-02] MEDS: HYDROcodone/acetaminophen (*CRX) 10-325 MG TABLET 1 TAB PO ×4 (05:24→21:05)
[2022-04-02] MEDS: DOXYCYCLINE 100 MG/NS 100 ML 100 MG/100 ML BAG IVPB (05:25)
[2022-04-02] MEDS: ATORVASTATIN 10 MG TABLET PO (08:04)
[2022-04-02] MEDS: carvediloL 12.5 MG TABLET PO ×2 (08:04→21:05)
[2022-04-02] MEDS: ASPIRIN 81 MG ENTERIC TABLET PO (08:04)
[2022-04-02] MEDS: EMPAGLIFLOZIN 10 MG TABLET PO (08:05)
[2022-04-02] MEDS: MIDODRINE HCL 2.5 MG TABLET 5 MG PO ×3 (08:07→17:04)
[2022-04-02] MEDS: MAGNESIUM OXIDE 400 MG TABLET PO (08:07)
--- NOTE | 2022-04-02 10:49 | PC.NURSE ---
1050: pt removed tele monitor and refusing to wear at this time. Dr. Jalloh notified
[2022-04-02] MEDS: ALPRAZolam (*CRX) 0.25 MG TABLET PO (16:48)
--- NOTE | 2022-04-02 17:39 | PM.IMPN ---
Progress Note: A&P Assessment and Plan (1) Heart failure with reduced ejection fraction: Code(s): I50.20 - Unspecified systolic (congestive) heart failure Status: Acute Plan Acute on chronic systolic congestive heart failure: ?Code(s): I50.23 - Acute on chronic systolic (congestive) heart failure ?Status:?Acute (2) Noncompliance w/medication treatment due to intermit use of medication: ?Code(s): Z91.14 - Patient's other noncompliance with medication regimen ?Status:?Acute (3) Abnormal chest x-ray: ?Code(s): R93.89 - Abnormal findings on diagnostic imaging of other specified body structures ?Status:?Acute (4) Elevated LFTs: ?Code(s): R79.89 - Other specified abnormal findings of blood chemistry ?Status:?Acute (5) Hyponatremia: ?Code(s): E87.1 - Hypo-osmolality and hyponatremia ?Status:?Acute (6) Elevated troponin: ?Code(s): R77.8 - Other specified abnormalities of plasma proteins ?Status:?Acute (7) Methamphetamine abuse: ?Code(s): F15.10 - Other stimulant abuse, uncomplicated ?Status:?Acute (8) Tobacco abuse: ?Code(s): Z72.0 - Tobacco use ?Status:?Acute Plan ?chest pain/shortness of breath? flu/COVID negative chest x-ray with bilateral perihilar and basilar airspace disease may represent edema or pneumonia.? EKG with sinus tachycardia.? Treated as congestive heart failure with IV diuresis .? chest pain worsened 03/30/2022, ekg with no acute st t chagnes. trops same. cxr repaet with diffuse lung disea, consistent with pneumonia and /or pulmonary edema. improved pain is iv morphine. nitro did not hlep. cta neg for pe. noted pneuomnia. pen allergy.? started on doxycycline.? Will hold off on diuresis further also IV morphine.? Due to hypotension.? Oral [place] for pain control IV Tylenol p.r.n. Medical noncompliance Acute on chronic systolic congestive Heart failure .? Elevated BNP at 19,000.? Stopped medication 2 weeks ago.? Restarted on Entresto Coreg Jardiance spironolactone.? EF 15% CTA did not show congestive changes are does have? cardiomegaly noted.? Will continue diuresis however due to acute on chronic renal failure will hold off on diuresis today ALTON:? Worsened today to 1.6 with diuresis.? Will hold further IV diuresis.? Recheck in a.m. if improved start oral diuretics Mildly elevated troponin not suggestive of ACS Elevated LFTs likely due to passive hepatic congestion .? Slightly worse today likely due to hypotension Mild hyponatremia? worsened today will continue to monitor Anxiety disorder Alcohol and methamphetamine use DVT prophylaxis Code status full code Now on hospice care Awaiting hospice discharge Subjective Date/time seen: 04/02/22 17:39 Interval history: Reason for visit: Acute decompensated heart failure HPI: Mr. Nichols is a 46-year-old male with a past medical history of methamphetamine use and systolic heart failure with severely reduced ejection fraction around 15%.? He has had multiple recent hospitalizations for acute on chronic decompensated heart failure.? He presents to the hospital now with complaints of shortness of breath, lower extremity swelling, and chest pain.? The symptoms have been ongoing for about 3 days.? He states that he has not taken any of his medications for a couple of weeks.? He has been admitted to the IMU for management of his decompensated heart failure.? At the time of my interview he is sleeping but awakens to my voice and appears comfortable though slightly tachypneic.? He continues to complain of shortness of breath and chest pain that worsens with coughing or deep breathing.? Date of service 04/01: Patient reports continued shortness of breath. No chest pain. Slightly tachypneic. Patient is interested in hospice. patient met with hospice today adn he is now on hospice care and awaiting discharge to hospice. Review of Systems Review of Systems: All systems reviewed & are unremarkable exc
--- NOTE | 2022-04-02 20:01 | PC.NURSE ---
patient is refusing to wear telemetry. gordon yip np is aware.
[2022-04-03] VITALS (14 sets, daily range): BP systolic 119–144; BP diastolic 78–88; PULSE 73–89; RESP 18–30; TEMP 35.9–36.6; O2SAT 93–98
[2022-04-03] MEDS: HYDROcodone/acetaminophen (*CRX) 10-325 MG TABLET 1 TAB PO ×4 (05:36→18:27)
[2022-04-03] MEDS: ALPRAZolam (*CRX) 0.25 MG TABLET PO (09:09)
[2022-04-03] MEDS: MAGNESIUM OXIDE 400 MG TABLET PO (09:10)
[2022-04-03] MEDS: ASPIRIN 81 MG ENTERIC TABLET PO (09:10)
[2022-04-03] MEDS: EMPAGLIFLOZIN 10 MG TABLET PO (09:10)
[2022-04-03] MEDS: carvediloL 12.5 MG TABLET PO (09:11)
[2022-04-03] MEDS: MIDODRINE HCL 2.5 MG TABLET 5 MG PO ×3 (09:11→17:16)
[2022-04-03] MEDS: ATORVASTATIN 10 MG TABLET PO (09:12)
[2022-04-03] MEDS: MORPHINE SULFATE (*CRX) 2 MG/ML INJ IV PUSH (11:20)
--- NOTE | 2022-04-03 13:33 | PM.DS ---
DS: Admitting Diagnosis Discharge Date 04/03/22 Admitting Diagnosis Chest pain DS: Discharge Diagnosis Discharge Diagnosis Plan Heart failure with reduced ejection fraction chest pain/shortness of breath? flu/COVID negative chest x-ray with bilateral perihilar and basilar airspace disease may represent edema or pneumonia.? EKG with sinus tachycardia.? Treated as congestive heart failure with IV diuresis .? chest pain worsened 03/30/2022, ekg with no acute st t chagnes. trops same. cxr repaet with diffuse lung disea, consistent with pneumonia and /or pulmonary edema. improved pain is iv morphine. nitro did not hlep. cta neg for pe. noted pneuomnia. pen allergy.? started on doxycycline.? Will hold off on diuresis further also IV morphine.? Due to hypotension.? Oral [place] for pain control IV Tylenol p.r.n. Medical noncompliance Acute on chronic systolic congestive Heart failure .? Elevated BNP at 19,000.? Stopped medication 2 weeks ago.? Restarted on Entresto Coreg Jardiance spironolactone.? EF 15% CTA did not show congestive changes are does have? cardiomegaly noted.? Will continue diuresis however due to acute on chronic renal failure will hold off on diuresis today ALTON:? Worsened today to 1.6 with diuresis.? Will hold further IV diuresis.? Recheck in a.m. if improved start oral diuretics Mildly elevated troponin not suggestive of ACS Elevated LFTs likely due to passive hepatic congestion .? Slightly worse today likely due to hypotension Mild hyponatremia? 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 Patient eventially requested for hospice eval, hospice evaluated and found him qualifed and offer care which he accepted. Discharged today with home hospice. Time Spent with Patient Time attestation: Total time spent providing and/or coordinating discharge services: Discharge Plan Discharge Attending physician on discharge: Carrie Jalloh Consulting providers: Mychal Quintero Discharging Clinician: Carrie Jalloh Anticipated Discharge Date/Time: 04/03/22 16:00 Patient Disposition: Hospice - Home Activity: as tolerated Diet: as tolerated Stand Alone Forms: General Discharge Information Follow-up/Referrals: Mychal Quintero MD [Physician] - (f/u with cardiology as needed f/u with hospice care ) Discharge Medications: Continued carvedilol [Coreg] 12.5 mg Tablet 12.5 mg PO Q12HR 30 Days Qty: 60 0RF atorvastatin 10 mg Tablet 10 mg PO DAILY 30 Days Qty: 30 0RF aspirin 81 mg Tablet,Delayed Release (Dr/Ec) 81 mg PO QAM 30 Days Qty: 30 0RF hydroxyzine HCl 50 mg tablet 50 mg PO QID PRN (Reason: anxiety) Qty: 30 0RF Jardiance 10 mg tablet 10 mg PO DAILY Entresto 24-26 mg tablet 1 tablet PO BID spironolactone 25 mg Tablet 25 mg PO QAM 30 Days Qty: 30 0RF furosemide 40 mg tablet 40 mg PO DAILY magnesium oxide 400 mg (241.3 mg magnesium) tablet 400 mg PO DAILY Date of admission: 03/31/22 10:00 Primary Care Provider: Gabrielle Laurent Admitting Provider: Danielle Alexander Attending physician on admission: Carrie Jalloh Condition: Guarded Prognosis
== END 2022-04-03 20:05 | disposition hospice, home (50) | DRG 291 ==
LOC: ANHED 14:02 → ANHIMU 15:02
PROVIDERS: Emergency Medicine; Internal Medicine; Physician Assistant; Admitting Provider Student in an Organized Health Care Education/Training Program; Emergency Provider Emergency Medicine; PCP Nurse Practitioner; Visit Provider Internal Medicine
DX: I13.0 Hypertensive heart and chronic kidney disease with heart failure and stage 1 through stage 4 chronic kidney disease, or unspecified chronic kidney disease (principal); I50.23 Acute on chronic systolic (congestive) heart failure; J18.9 Pneumonia, unspecified organism; E87.1 Hypo-osmolality and hyponatremia; N17.9 Acute kidney failure, unspecified; N18.9 Chronic kidney disease, unspecified; F41.9 Anxiety disorder, unspecified; I25.5 Ischemic cardiomyopathy; K76.1 Chronic passive congestion of liver; I95.9 Hypotension, unspecified; Z20.822 Contact with and (suspected) exposure to COVID-19; F15.10 Other stimulant abuse, uncomplicated; F31.9 Bipolar disorder, unspecified; E78.5 Hyperlipidemia, unspecified; F17.210 Nicotine dependence, cigarettes, uncomplicated; Z91.14 Patient's other noncompliance with medication regimen
CPT/HCPCS: 36415; 71045; 71275; 80053; 80307; 83735; 83880; 84145; 84484; 85025; 85610; 85730; 86140; 87636; 93005; 96365; 96366; 96374; 96375; 96376; 99285; A9270; G0378; J0131; J1650; J1885; J1940; J2270; Q9967